=== PATIENT | female | born 1950 | race Caucasian/White ===

== ENCOUNTER 2017-02-16 14:19 | Inpatient (IN) | payer MEDICARE, MEDICAID ==
[~2017-02-16] VITALS: Ht 160 cm; Wt 69.5 kg
[~2017-02-16 14:19] MED LIST: DOK100TA PO; FLUO20TA20 PO; HYDR1CAP30 PO; RISP4TAB2; TRIH5TAB2 PO
[2017-02-16 14:31] VITALS: BP 112/54; PULSE 97; RESP 20; TEMP 98.2; O2SAT 94
[2017-02-16 14:34] VITALS: O2SAT 93
[2017-02-16] MEDS ORDERED: methylPREDNISolone SOD SUCC 125 MG/2 ML VIAL IVP ONE (14:45)
[2017-02-16] MEDS ORDERED: RESP: ALBUTEROL 2.5 MG/IPRATROPIUM 0.5 MG NEB (SCH) INH ONE (14:45)
--- NOTE | 2017-02-16 14:50 | PD ---
HPI Chief Complaint: Respiratory Symptoms Time Seen by Provider: 14:45 Travel History International Travel<30 days: No Contact w/Intl Traveler<30days: No Traveled to known affect area: No History of Present Illness HPI 66-year-old female that presents to the ED from assisted living facility secondary to schizophrenia for evaluation of shortness of breath that started this morning. Per patient yesterday she was fine. Per patient today she developed this shortness of breath with exertion. Patient has a chronic history of smoking. No history of COPD. Per patient she used to use inhalers but not recently. Patient was brought here by ambulance and was not given any breathing treatments but was put on oxygen and felt improved. Per patient she feels slightly dizzy. No cough or congestion. No fevers chills or sweats. No recent sick contacts. No allergies to medication. Patient comes here with a medication list the most of her medications on the list are antipsychotics with no sign of medications for asthma or COPD. She has no other complaints. No chest pain. No abdominal pain. No nausea or vomiting. PFSH Past Medical History High Cholesterol: Yes Diminished Hearing: No GERD: Yes Respiratory: Yes Immunizations Current: No Schizophrenia: Yes ?: Not Menopausal: Yes Past Surgical History Cholecystectomy: Yes (GALL STONES REMOVED) Eye Surgery: Yes Hysterectomy: Yes Oral Surgery: Yes Social History Alcohol Use: No Tobacco Use: Yes (1 1/2 PPD X 20 YEARS) Substance Use: No Allergies-Medications (Allergen,Severity, Reaction): Coded Allergies: No Known Allergies (Verified , 11/25/14) Reported Meds & Prescriptions Reported Meds & Active Scripts Active Reported Dok 100 mg (Docusate Sodium) 100 Mg Tab 100 Mg PO Risperidone 4 Mg Tab Hydroxyzine Pamoate 25 Mg Cap 50 Mg PO ONCE Fluoxetine (Fluoxetine HCl) 20MG Cap 1 Cap PO DAILY Artane (Trihexyphenidyl HCl) 5 Mg Tab 5 Mg PO HS Review of Systems Except as stated in HPI: all other systems reviewed are Neg Physical Exam Narrative GENERAL: SKIN: Warm and dry. HEAD: Atraumatic. Normocephalic. EYES: Pupils equal and round 4 mm reactive to light and accommodation. No scleral icterus. No injection or drainage. ENT: No nasal bleeding or discharge. Mucous membranes pink and moist. Tongue is midline. No uvula deviation. TMs are clear with no sign of infection or perforation. Nostrils are patent. No mastoid tenderness. No lymphadenopathy noted bilaterally. No meningeal signs noted. NECK: Trachea midline. No JVD. CARDIOVASCULAR: Regular rate and rhythm. No murmurs, S3, S4. RESPIRATORY: No accessory muscle use. Mild expiratory wheezing. Breath sounds equal bilaterally. GASTROINTESTINAL: Abdomen soft, non-tender, nondistended. Hepatic and splenic margins not palpable. MUSCULOSKELETAL: Extremities without clubbing, cyanosis, or edema. No obvious deformities. Full range of motion of the upper and lower extremities bilaterally. 2+ pulses bilaterally. NEUROLOGICAL: Awake and alert. No obvious cranial nerve deficits. Motor grossly within normal limits. Five out of 5 muscle strength in the arms and legs. Normal speech. PSYCHIATRIC: Appropriate mood and affect; insight and judgment normal. Data Data Last Documented VS Vital Signs Date Time Temp Pulse Resp B/P Pulse Ox O2 Delivery O2 Flow Rate FiO2 02/16/17 14:34 94 Room Air 02/16/17 14:31 98.2 97 20 112/54 Orders Electrocardiogram (02/16/17 14:32) Complete Blood Count With Diff (02/16/17 14:32) Basic Metabolic Panel (Bmp) (02/16/17 14:32) Troponin I (02/16/17 14:32) Magnesium (Mg) (02/16/17 14:32) Chest, Single Ap (02/16/17 14:32) Iv Access Insert/Monitor (02/16/17 14:32) Ecg Monitoring (02/16/17 14:32) Oximetry (02/16/17 14:32) Methylprednisolone So Succ Inj (Solumedr (02/16/17 14:45) Albuterol-Ipratropium Neb (Duoneb Neb) (02/16/17 14:45) Azithromycin Inj (Zithromax Inj) (02/16/17 16:15) Ceftriaxone Inj (Rocephin Inj) (02/16/17 16:15) Labs Laboratory Tests Test 02/16/17 14:50 White Blood Count 21.1 TH/MM3 Red Blood Count 4.42 MIL/MM3 Hemoglobin 11.7 GM/DL Hematocrit 37.3 % Mean Corpuscular Volume 84.5 FL Mean Corpuscular Hemoglobin 26.4 PG Mean Corpuscular Hemoglobin 31.2 % Concent Red Cell Distribution Width 15.2 % Platelet Count 282 TH/MM3 Mean Platelet Volume 8.2 FL Neutrophils (%) (Auto) % Lymphocytes (%) (Auto) % Monocytes (%) (Auto) % Eosinophils (%) (Auto) % Basophils (%) (Auto) % Neutrophils # (Auto) TH/MM3 Lymphocytes # (Auto) TH/MM3 Monocytes # (Auto) TH/MM3 Eosinophils # (Auto) TH/MM3 Basophils # (Auto) TH/MM3 CBC Comment AUTO DIFF Differential Total Cells 100 Counted Neutrophils % (Manual) 83 % Band Neutrophils % 11 % Lymphocytes % 2 % Monocytes % 4 % Neutrophils # (Manual) 19.8 TH/MM3 Differential Comment FINAL DIFF MANUAL Toxic Vacuolation PRESENT Platelet Estimate NORMAL Platelet Morphology Comment NORMAL Sodium Level 140 MEQ/L Potassium Level 4.1 MEQ/L Chloride Level 107 MEQ/L Carbon Dioxide Level 27.1 MEQ/L Anion Gap 6 MEQ/L Blood Urea Nitrogen 20 MG/DL Creatinine 0.90 MG/DL Estimat Glomerular Filtration 63 ML/MIN Rate Random Glucose 148 MG/DL Calcium Level 8.8 MG/DL Magnesium Level 1.6 MG/DL Troponin I LESS THAN 0.02 NG/ML MDM Medical Decision Making Medical Screen Exam Complete: Yes Emergency Medical Condition: Yes Medical Record Reviewed: Yes Interpretation(s) CBC & BMP Diagram 02/16/17 14:50 Chest x-ray showed pneumonia on the right side Differential Diagnosis Bronchitis versus COPD exacerbation versus pneumonia versus ACS Narrative Course 66-year-old female that presents to the ED for evaluation of shortness of breath. Patient was properly examined and was found to have signs and symptoms consistent appears to be appears to be bronchitis likely secondary to tobaccism. Labs and imaging will be ordered. Patient was given breathing treatments here. Labs and imaging came back showing what appears to be leukocytosis as well as right-sided pneumonia. Patient slightly tachycardic and meets sepsis criteria. Case was discussed in my attending Dr. Munroe who agrees to admission. Dr Echevarria agrees to admission. Sepsis Criteria SIRS Criteria (2 or more): Heart rate over 90, WBC > 82155, < 4000 or > 10% bands Sepsis Criteria (SIRS+source): Infect source susp/known Criteria Outcome: Meets sepsis criteria Diagnosis Primary Impression: Pneumonia Qualified Code: J18.1 - Pneumonia of right lower lobe due to infectious organism Additional Impression: Sepsis Qualified Code: A41.9 - Sepsis, due to unspecified organism Admitting Information Admitting Physician Requests: Venecia Mills,Shay PA Feb 16, 2017 14:50 Shay Mills Feb 16, 2017 14:50
[2017-02-16 15:30] LABS: HEMATOCRIT 37.3 % (35.0-46.0); HEMO FLAGS AUTO DIFF; MEAN CELL VOLUME 84.5 FL (80.0-100.0); MEAN CORPUSCULAR HEMOGLOBIN 26.4 PG (27.0-34.0); MEAN CORPUSCULAR HGB CONC 31.2 % (32.0-36.0); PLATELET COUNT 282 TH/MM3 (150-450); RED BLOOD COUNT 4.42 MIL/MM3 (4.00-5.30); RED CELL DISTRIBUTION WIDTH 15.2 % (11.6-17.2); WHITE BLOOD COUNT 21.1 TH/MM3 (4.0-11.0)
[2017-02-16 15:38] LABS: ANION GAP 6 MEQ/L (5-15); BICARBONATE 27.1 MEQ/L (21.0-32.0); BLOOD UREA NITROGEN 20 MG/DL (7-18); CHLORIDE 107 MEQ/L (98-107); GLOMERULAR FILTRATION RATE 63 ML/MIN (>89); MAGNESIUM 1.6 MG/DL (1.5-2.5); POTASSIUM 4.1 MEQ/L (3.5-5.1); SODIUM (NA) 140 MEQ/L (136-145)
--- NOTE | 2017-02-16 15:52 | RADRPT ---
EXAM DATE/TIME: 02/16/2017 15:05 [facility] COMPARISON: No previous studies available for comparison. INDICATIONS : Short of breath. MEDICAL HISTORY : None. SURGICAL HISTORY : None. ENCOUNTER: Initial ACUITY: 1 day PAIN SCORE: 0/10 LOCATION: Bilateral chest FINDINGS: Patchy opacity is noted within the right lung base consistent with probable pneumonia. Clinical krystyna elation is recommended. The left lung is clear. The heart is normal. Degenerative changes and scol iosis of the thoracolumbar spine are noted. CONCLUSION: 1. Right basilar patchiness consistent with probable pneumonia. Clinical correlation is recommended . 2. Degenerative changes and scoliosis of the thoracolumbar spine. Sandip Garcia MD on February 16, 2017 at 15:45 Board Certified Radiologist. This report was verified electronically.
[2017-02-16 15:58] LABS: BANDS 11 % (0-6); NEUTROPHIL # MANUAL DIFF 19.8 TH/MM3 (1.8-7.7); POLYS (SEG NEUTROPHILS) 83 % (16-70); TOXIC VACUOLATION PRESENT (NONE SEEN); WBC DIFF SAMPLE 100
[2017-02-16 16:00] LABS: PLATELET ESTIMATE SMEAR NORMAL (NORMAL); PLATELET MORPHOLOGY NORMAL (NORMAL); SCAN/DIFF FINAL DIFF MANUAL
[2017-02-16] MEDS ORDERED: cefTRIAXone INJ 1,000 MG in SODIUM CHLORIDE 0.9% INJ 100 ML IV ONE (16:15)
[2017-02-16] MEDS ORDERED: AZITHROMYCIN INJ 500 MG in SODIUM CHLOR 0.9% 250 ML INJ 250 ML IV ONE (16:15)
[2017-02-16] MEDS ORDERED: ONDANSETRON HCL 4 MG/2 ML VIAL IV PUSH PRN (16:30)
[2017-02-16] MEDS ORDERED: ACETAMINOPHEN 325 MG TAB PO PRN (16:30)
[2017-02-16] MEDS ORDERED: RESP: ALBUTEROL 1.25 MG/3 ML NEB (PRN) NEB (16:45)
--- NOTE | 2017-02-16 16:45 | HHI.HP ---
[facility] Service [facility] Primary Care Physician Unknown Admission Diagnosis right sided pneumonia, leukocystosis, sepsis Diagnoses: (1) Sepsis Diagnosis: Principal (2) Pneumonia Diagnosis: Principal Chief Complaint: sob Travel History International Travel<30 Days: No Contact w/Intl Traveler <30 Da: No Traveled to Known Affected Are: No Sepsis Criteria SIRS Criteria (2 or more): Heart rate over 90, WBC > 00035, < 4000 or > 10% bands Sepsis Criteria (SIRS+source): Infect source susp/known Criteria Outcome: Meets sepsis criteria History of Present Illness patient is a 66 y/o female with history of schizophrenia who presented to ER with sob. she says that her sob started four days ago. she denies any productive cough, fever, chills or night sweats. she admits to smoking a pack a day.at the time of my evaluation she was resting comfortably with no distress. she says that her sob has improved. Review of Systems Constitutional: DENIES: Fever, Weight loss, Chills, Night Sweats Eyes: DENIES: Blurred vision, Diplopia, Vision loss, Double Vision Ears, nose, mouth, throat: DENIES: Tinnitus, Vertigo, Throat pain, Epistaxis Respiratory: COMPLAINS OF: Shortness of breath, DENIES: Apneas, Cough, Snoring , Wheezing, Hemoptysis, Sputum production Cardiovascular: DENIES: Chest pain, Palpitations, Syncope, Dyspnea on Exertion , PND, Lower Extremity Edema, Orthopnea, Claudication Gastrointestinal: DENIES: Abdominal pain, Black stools, Bloody stools, Constipation, Diarrhea, Nausea, Vomiting, Difficulty Swallowing, Anorexia Genitourinary: DENIES: Urinary frequency, Urgency, Hematuria, Dysuria Musculoskeletal: DENIES: Joint pain, Muscle aches, Stiffness, Joint Swelling Integumentary: DENIES: Rash Neurologic: DENIES: Abnormal gait, Headache, Localized weakness, Paresthesias, Seizures, Speech Problems, Tremor, Poor Balance Psychiatric: DENIES: Anxiety, Confusion, Mood changes, Depression, Hallucinations, Agitation, Suicidal Ideation, Homicidal Ideation, Delusions Past Family Social History Past Medical History schizophrenia Past Surgical History cholecystectomy Reported Medications Dok 100 mg (Docusate Sodium) 100 Mg Tab 100 Mg PO Risperidone 4 Mg Tab Hydroxyzine Pamoate 25 Mg Cap 50 Mg PO ONCE Fluoxetine (Fluoxetine HCl) 20MG Cap 1 Cap PO DAILY Artane (Trihexyphenidyl HCl) 5 Mg Tab 5 Mg PO HS Allergies: Coded Allergies: No Known Allergies (Verified , 11/25/14) Active Ordered Medications Current Medications Methylprednisolone Sodium Succinate (SoluMEDROL INJ) 125 mg ONCE ONCE IVP Last administered on 02/16/17 14:45; Start 02/16/17 at 14:45; Stop 02/16/17 at 14:46; Status DC Albuterol/ Ipratropium 1 ampule 1 ampule ONCE ONCE INH Last administered on 14:42; Start 02/16/17 at 14:45; Stop 02/16/17 at 14:46; Status DC Azithromycin 500 mg/Sodium Chloride 250 ml @ 250 mls/hr ONCE ONCE IV ; Start 02/16/17 at 16:15; Stop 02/16/17 at 17:14 Ceftriaxone Sodium/Sodium Chloride (Rocephin Inj/NS Inj) 100 ml @ 200 mls/hr ONCE ONCE IV ; Start 02/16/17 at 16:15; Stop 02/16/17 at 16:44 Acetaminophen (Tylenol) 650 mg Q4H PRN PO FEVER/PAIN; Start 02/16/17 at 16:30; Status UNV Ondansetron HCl (Zofran Inj) 4 mg Q8HR PRN IV PUSH NAUSEA; Start 02/16/17 at 16 :30; Status UNV Family History not relevant to this admission. Social History [facility] resident. smokes a pack a day. Physical Exam Vital Signs Vital Signs Date Time Temp Pulse Resp B/P Pulse Ox O2 Delivery O2 Flow Rate FiO2 02/16/17 14:34 94 Room Air 02/16/17 14:34 93 02/16/17 14:31 98.2 97 20 112/54 94 Physical Exam GENERAL: This is a well-nourished, well-developed patient, in no apparent distress. SKIN: No rashes, ecchymoses or lesions. Cool and dry. HEAD: Atraumatic. Normocephalic. No temporal or scalp tenderness. EYES: Pupils equal round and reactive. Extraocular motions intact. No scleral icterus. No injection or drainage. ENT: Nose without bleeding, purulent drainage or septal hematoma. Throat without erythema, tonsillar hypertrophy or exudate. Uvula midline. Airway patent. NECK: Trachea midline. No JVD or lymphadenopathy. Supple, nontender, no meningeal signs. CARDIOVASCULAR: Regular rate and rhythm without murmurs, gallops, or rubs. RESPIRATORY: diminished air entry in bases with bilateral wheezing. GASTROINTESTINAL: Abdomen soft, non-tender, nondistended. No hepato-splenomegaly , or palpable masses. No guarding. MUSCULOSKELETAL: Extremities without clubbing, cyanosis, or edema. No joint tenderness, effusion, or edema noted. No calf tenderness. Negative Homans sign bilaterally. NEUROLOGICAL: Awake and alert. Cranial nerves II through XII intact. Motor and sensory grossly within normal limits. Five out of 5 muscle strength in all muscle groups. Normal speech. Laboratory Laboratory Tests Test 02/16/17 14:50 White Blood Count 21.1 Red Blood Count 4.42 Hemoglobin 11.7 Hematocrit 37.3 Mean Corpuscular Volume 84.5 Mean Corpuscular Hemoglobin 26.4 Mean Corpuscular Hemoglobin 31.2 Concent Red Cell Distribution Width 15.2 Platelet Count 282 Mean Platelet Volume 8.2 Neutrophils (%) (Auto) Lymphocytes (%) (Auto) Monocytes (%) (Auto) Eosinophils (%) (Auto) Basophils (%) (Auto) Neutrophils # (Auto) Lymphocytes # (Auto) Monocytes # (Auto) Eosinophils # (Auto) Basophils # (Auto) CBC Comment AUTO DIFF Differential Total Cells 100 Counted Neutrophils % (Manual) 83 Band Neutrophils % 11 Lymphocytes % 2 Monocytes % 4 Neutrophils # (Manual) 19.8 Differential Comment FINAL DIFF MANUAL Toxic Vacuolation PRESENT Platelet Estimate NORMAL Platelet Morphology Comment NORMAL Sodium Level 140 Potassium Level 4.1 Chloride Level 107 Carbon Dioxide Level 27.1 Anion Gap 6 Blood Urea Nitrogen 20 Creatinine 0.90 Estimat Glomerular Filtration 63 Rate Random Glucose 148 Calcium Level 8.8 Magnesium Level 1.6 Troponin I LESS THAN 0.02 Result Diagram: 02/16/17 1450 02/16/17 1450 Assessment and Plan Assessment and Plan A/P - sepsis due to pneumonia continue with IV antibiotics- start neb treatment - keep on oxygen as needed to keep O2 sat > 90%- follow the cultures -possible COPD exacerbation continue neb treatment and start IV steroids- advised to stop smoking- -schizophrenia; will verify and resume the home meds -DVt prophylaxis with Lovenox Discussed Condition With ER physician and the patient. Physician Certification 2 Midnight Certification Type: Admission for Inpatient Services Order for Inpatient Services The services are ordered in accordance with Medicare regulations or non- Medicare payer requirements, as applicable. In the case of services not specified as inpatient-only, they are appropriately provided as inpatient services in accordance with the 2-midnight benchmark. Estimated LOS (days): 2 days is the estimated time the patient will need to remain in the hospital, assuming treatment plan goals are met and no additional complications. Post-Hospital Plan: Alf/PRISCILA Problem Qualifiers (1) Sepsis: Qualified Code: A41.9 - Sepsis, due to unspecified organism (2) Pneumonia: Qualified Code: J18.1 - Pneumonia of right lower lobe due to infectious organism Marcellus Avery MD Feb 16, 2017 16:45
[2017-02-16 17:11] VITALS: BP 115/60; PULSE 89; RESP 20; O2SAT 95
--- NOTE | 2017-02-16 17:54 | EKG ---
Date Performed: 02/16/2017 Time Performed: 15:11:31 PTAGE: 66 years EKG: Sinus rhythm WITH OCCASIONAL SUPRAVENTRICULAR PREMATURE COMPLEXES BORDERLINE ECG COMPARED TO PRIOR ELECTROCARDIOG GRACIA, Premature atrial contractions are now present. PREVIOUS TRACING : 12/27/2006 10.42 DOCTOR: Yovani Petersen Interpretating Date/Time 02/16/2017 17:54:15
[2017-02-16] MEDS: ENOXAPARIN SODIUM 40 MG/0.4 ML SYRINGE SQ SCH ×2 (18:26→18:29)
[2017-02-16] MEDS: cefTRIAXone INJ 1,000 MG in SODIUM CHLORIDE 0.9% INJ 100 ML IV SCH (18:29)
[2017-02-16 18:51] VITALS: O2SAT 92
[2017-02-16 19:00] VITALS: O2SAT 97
[2017-02-16] MEDS: RESP: ALBUTEROL 2.5 MG/IPRATROPIUM 0.5 MG NEB (SCH) NEB (19:00)
[2017-02-16 20:00] VITALS: BP 148/66; PULSE 79; RESP 22; TEMP 98.6; O2SAT 96
[2017-02-16] MEDS: methylPREDNISolone SOD SUCC 40 MG/1 ML VIAL IV PUSH SCH (22:13)
[2017-02-17] VITALS (8 sets, daily range): BP systolic 131–162; BP diastolic 60–73; PULSE 75–98; RESP 19–22; TEMP 96.9–98.3; O2SAT 91–97
[2017-02-17] MEDS: methylPREDNISolone SOD SUCC 40 MG/1 ML VIAL IV PUSH SCH ×2 (04:21→21:50)
[2017-02-17] MEDS: RESP: ALBUTEROL 2.5 MG/IPRATROPIUM 0.5 MG NEB (SCH) NEB ×2 (07:08→11:43)
[2017-02-17 07:09] LABS: AUTOMATED NEUTROPHIL # 16.7 TH/MM3 (1.8-7.7); BASOPHIL % 0.1 % (0.0-2.0); HEMATOCRIT 36.7 % (35.0-46.0); HEMO FLAGS DIFF FINAL; LYMPHOCYTE # 0.9 TH/MM3 (1.0-4.8); MEAN CORPUSCULAR HEMOGLOBIN 27.4 PG (27.0-34.0); MEAN CORPUSCULAR HGB CONC 32.6 % (32.0-36.0); MONO % 1.2 % (0.0-8.0); NEUT % 93.7 % (16.0-70.0); PLATELET COUNT 275 TH/MM3 (150-450); RED BLOOD COUNT 4.37 MIL/MM3 (4.00-5.30); RED CELL DISTRIBUTION WIDTH 14.9 % (11.6-17.2); WHITE BLOOD COUNT 17.8 TH/MM3 (4.0-11.0)
--- NOTE | 2017-02-17 09:47 | HHI.PR ---
Subjective Remarks resting comfortably with no distress. sob has improved. no cough or fever. Objective Vitals Vital Signs Date Time Temp Pulse Resp B/P Pulse Ox O2 Delivery O2 Flow Rate FiO2 02/17/17 09:07 97 02/17/17 09:04 91 02/17/17 08:00 98.3 91 20 131/60 95 02/17/17 07:09 97 Nasal Cannula 2.00 02/17/17 00:00 97.5 75 20 146/68 95 02/16/17 20:00 98.6 79 22 148/66 96 02/16/17 19:00 97 Nasal Cannula 2.00 02/16/17 18:51 92 02/16/17 17:11 89 20 115/60 95 Room Air 02/16/17 14:34 94 Room Air 02/16/17 14:34 93 02/16/17 14:31 98.2 97 20 112/54 94 I/O 02/16/17 02/16/17 02/16/17 02/17/17 02/17/17 02/17/17 07:00 15:00 23:00 07:00 15:00 23:00 Intake Total 240 ml 240 ml 120 ml Balance 240 ml 240 ml 120 ml Intake Oral 240 ml 240 ml 120 ml # Voids 1 2 # Bowel Movements 0 0 Result Diagram: 02/17/17 0430 02/16/17 1450 Imaging Last Impressions Chest X-Ray 02/16/17 1432 Signed Impressions: Service Date/Time: Thursday, February 16, 2017 15:05 - CONCLUSION: 1. Right basilar patchiness consistent with probable pneumonia. Clinical correlation is recommended. 2. Degenerative changes and scoliosis of the thoracolumbar spine. Sandip Garcia MD Objective Remarks GENERAL: This is a well-nourished, well-developed patient, in no apparent distress. CARDIOVASCULAR: Regular rate and regular rhythm without murmurs, gallops, or rubs. RESPIRATORY: mild bilateral wheezing GASTROINTESTINAL: Abdomen soft, non-tender, nondistended. Normal, active bowel sounds MUSCULOSKELETAL: Extremities without clubbing, cyanosis, or edema. NEURO: Alert & Oriented x4 to person, place, time, situation. Moves all ext x4 Procedures none Medications and IVs Current Medications Methylprednisolone Sodium Succinate (SoluMEDROL INJ) 125 mg ONCE ONCE IVP Last administered on 02/16/17 14:45; Start 02/16/17 at 14:45; Stop 02/16/17 at 14:46; Status DC Albuterol/ Ipratropium 1 ampule 1 ampule ONCE ONCE INH Last administered on 14:42; Start 02/16/17 at 14:45; Stop 02/16/17 at 14:46; Status DC Azithromycin 500 mg/Sodium Chloride 250 ml @ 250 mls/hr ONCE ONCE IV Last administered on 02/16/17 16:15; Start 02/16/17 at 16:15; Stop 02/16/17 at 17:14 ; Status DC Ceftriaxone Sodium/Sodium Chloride (Rocephin Inj/NS Inj) 100 ml @ 200 mls/hr ONCE ONCE IV Last administered on 02/16/17 16:15; Start 02/16/17 at 16:15; Stop 02/16/17 at 16:44; Status DC Acetaminophen (Tylenol) 650 mg Q4H PRN PO FEVER/PAIN 1-10; Start 02/16/17 at 16 :30 Ondansetron HCl 4 mg 4 mg Q8H PRN IV PUSH NAUSEA; Start 02/16/17 at 16:30 Ceftriaxone Sodium 1000 mg/ Sodium Chloride 100 ml @ 200 mls/hr Q24H IV ; Start 02/17/17 at 16:00 Azithromycin/ Sodium Chloride (Zithromax Inj/ NS 250 ml Inj) 250 ml @ 250 mls/ hr ONCE ONCE IV ; Start 02/17/17 at 16:00; Stop 02/17/17 at 16:59 Methylprednisolone Sodium Succinate (SoluMEDROL INJ) 40 mg Q8HR IV PUSH Last administered on 02/17/17 04:21; Start 02/16/17 at 22:00 Albuterol/ Ipratropium (Duoneb Neb) 1 ampule Q6HR WHILE AWAKE NEB NEB Last administered on 02/17/17 07:08; Start 02/16/17 at 20:00; Stop 02/17/17 at 12:00 Albuterol Sulfate (Albuterol Neb) 1.25 mg Q2HR NEB PRN NEB SOB/WHEEZING; Start 02/16/17 at 16:45 Enoxaparin Sodium (Lovenox Inj) 40 mg Q24H SQ Last administered on 6/30/17at 18 :29; Start 02/16/17 at 18:00 A/P Assessment and Plan A/p - sepsis due to pneumonia continue with IV antibiotics- start neb treatment - titrate down the oxygen to keep O2 sat > 90%- follow the cultures -possible COPD exacerbation continue neb treatment and start to taper down the IV steroids- advised to stop smoking- -schizophrenia; will verify and resume the home meds -DVt prophylaxis with Lovenox Marcellus Avery MD Feb 17, 2017 09:47
[2017-02-17] MEDS ORDERED: DOCU1CAP39 (13:50)
[2017-02-17] MEDS ORDERED: VIST25CA PO (13:50)
[2017-02-17] MEDS ORDERED: FLUO20CA12 PO (13:50)
[2017-02-17] MEDS ORDERED: REME15TA PO (13:50)
[2017-02-17] MEDS ORDERED: MIRA25TA (13:50)
[2017-02-17] MEDS ORDERED: PANT20 PO (13:50)
[2017-02-17] MEDS ORDERED: FAMO1TAB37 PO (13:50)
[2017-02-17] MEDS ORDERED: MELO7.5T4 PO (13:50)
[2017-02-17] MEDS ORDERED: TRIH2 PO (13:50)
[2017-02-17] MEDS ORDERED: FLUoxetine HCL 20 MG CAP PO PRN (16:00)
[2017-02-17] MEDS ORDERED: AZITHROMYCIN INJ 500 MG in SODIUM CHLOR 0.9% 250 ML INJ 250 ML IV ONE (16:00)
[2017-02-17] MEDS: MIRTAZAPINE 15 MG TAB PO SCH (21:48)
[2017-02-17] MEDS: TRIHEXYPHENIDYL HCL 2 MG TAB PO SCH (21:48)
[2017-02-18] VITALS: BP 143/63; PULSE 86; RESP 22; TEMP 97.8; O2SAT 95
[2017-02-18 05:44] LABS: AUTOMATED NEUTROPHIL # 15.3 TH/MM3 (1.8-7.7); BASOPHIL % 0.1 % (0.0-2.0); HEMATOCRIT 34.6 % (35.0-46.0); HEMO FLAGS DIFF FINAL; LYMPH % 4.7 % (9.0-44.0); LYMPHOCYTE # 0.8 TH/MM3 (1.0-4.8); MEAN CELL VOLUME 84.5 FL (80.0-100.0); MEAN CORPUSCULAR HEMOGLOBIN 27.9 PG (27.0-34.0); MONO % 1.9 % (0.0-8.0); NEUT % 93.3 % (16.0-70.0); PLATELET COUNT 270 TH/MM3 (150-450); RED CELL DISTRIBUTION WIDTH 15.1 % (11.6-17.2); WHITE BLOOD COUNT 16.4 TH/MM3 (4.0-11.0)
[2017-02-18 08:00] VITALS: BP 120/61; PULSE 71; RESP 19; TEMP 98; O2SAT 95
[2017-02-18] MEDS: TRIHEXYPHENIDYL HCL 2 MG TAB PO SCH ×2 (08:33→19:49)
[2017-02-18] MEDS: methylPREDNISolone SOD SUCC 40 MG/1 ML VIAL IV PUSH SCH ×2 (08:33→19:49)
[2017-02-18] MEDS: PANTOPRAZOLE SOD 20 MG DELAYED RELEASE TAB PO SCH (08:34)
[2017-02-18] MEDS ORDERED: FAMOTIDINE 20 MG TAB PO SCH (09:00)
--- NOTE | 2017-02-18 09:35 | HHI.PR ---
Subjective Remarks resting comfortably with no distress. sob is improving. has mild wheezing. Objective Vitals Vital Signs Date Time Temp Pulse Resp B/P Pulse Ox O2 Delivery O2 Flow Rate FiO2 02/18/17 08:00 98.0 71 19 120/61 95 02/18/17 00:00 97.8 86 22 143/63 95 02/17/17 20:00 97.0 86 22 162/73 95 02/17/17 16:00 96.9 92 19 154/73 95 02/17/17 12:00 97.4 98 19 145/67 95 I/O 02/17/17 02/17/17 02/17/17 02/18/17 02/18/17 02/18/17 07:00 15:00 23:00 07:00 15:00 23:00 Intake Total 240 ml 1080 ml 480 ml 320 ml 120 ml Output Total 700 ml Balance 240 ml 380 ml 480 ml 320 ml 120 ml Intake Oral 240 ml 1080 ml 480 ml 320 ml 120 ml Output Urine Total 700 ml # Voids 2 2 3 # Bowel Movements 0 0 0 0 Result Diagram: 02/18/17 0358 02/16/17 1450 Imaging Last Impressions Chest X-Ray 02/16/17 1432 Signed Impressions: Service Date/Time: Thursday, February 16, 2017 15:05 - CONCLUSION: 1. Right basilar patchiness consistent with probable pneumonia. Clinical correlation is recommended. 2. Degenerative changes and scoliosis of the thoracolumbar spine. Sandip Garcia MD Objective Remarks GENERAL: This is a well-nourished, well-developed patient, in no apparent distress. CARDIOVASCULAR: Regular rate and regular rhythm without murmurs, gallops, or rubs. RESPIRATORY: mild bilateral wheezing GASTROINTESTINAL: Abdomen soft, non-tender, nondistended. Normal, active bowel sounds MUSCULOSKELETAL: Extremities without clubbing, cyanosis, or edema. NEURO: Alert & Oriented x4 to person, place, time, situation. Moves all ext x4 Procedures none Medications and IVs Current Medications Methylprednisolone Sodium Succinate (SoluMEDROL INJ) 125 mg ONCE ONCE IVP Last administered on 02/16/17t 14:45; Start 02/16/17 at 14:45; Stop 02/16/17 at 14:46; Status DC Albuterol/ Ipratropium 1 ampule 1 ampule ONCE ONCE INH Last administered on 14:42; Start 02/16/17 at 14:45; Stop 02/16/17 at 14:46; Status DC Azithromycin 500 mg/Sodium Chloride 250 ml @ 250 mls/hr ONCE ONCE IV Last administered on 02/16/17 16:15; Start 02/16/17 at 16:15; Stop 02/16/17 at 17:14 ; Status DC Ceftriaxone Sodium/Sodium Chloride (Rocephin Inj/NS Inj) 100 ml @ 200 mls/hr ONCE ONCE IV Last administered on 02/16/17 16:15; Start 02/16/17 at 16:15; Stop 02/16/17 at 16:44; Status DC Acetaminophen (Tylenol) 650 mg Q4H PRN PO FEVER/PAIN 1-10; Start 02/16/17 at 16 :30 Ondansetron HCl 4 mg 4 mg Q8H PRN IV PUSH NAUSEA; Start 02/16/17 at 16:30 Ceftriaxone Sodium 1000 mg/ Sodium Chloride 100 ml @ 200 mls/hr Q24H IV ; Start 02/17/17 at 16:00 Azithromycin/ Sodium Chloride (Zithromax Inj/ NS 250 ml Inj) 250 ml @ 250 mls/ hr ONCE ONCE IV ; Start 02/17/17 at 16:00; Stop 02/17/17 at 16:59; Status DC Methylprednisolone Sodium Succinate (SoluMEDROL INJ) 40 mg Q8HR IV PUSH Last administered on 02/17/17 04:21; Start 02/16/17 at 22:00; Stop 02/17/17 at 09:45; Status DC Albuterol/ Ipratropium (Duoneb Neb) 1 ampule Q6HR WHILE AWAKE NEB NEB Last administered on 02/17/17 11:43; Start 02/16/17 at 20:00; Stop 02/17/17 at 12:00; Status DC Albuterol Sulfate (Albuterol Neb) 1.25 mg Q2HR NEB PRN NEB SOB/WHEEZING; Start 02/16/17 at 16:45 Enoxaparin Sodium (Lovenox Inj) 40 mg Q24H SQ Last administered on 02/16/17 18 :29; Start 02/16/17 at 18:00 Methylprednisolone Sodium Succinate (SoluMEDROL INJ) 40 mg Q12HR IV PUSH Last administered on 02/18/17 08:33; Start 02/17/17 at 21:00 Famotidine (Pepcid) 20 mg DAILY PO ; Start 02/18/17 at 09:00; Stop 02/18/17 at 09: 00; Status DC Fluoxetine HCl (PROzac) 20 mg DAILY PRN PO AGITATION AND/OR HALLUCINATION; Start 02/17/17 at 16:00; Status Hold Mirtazapine (Remeron) 7.5 mg HS PO Last administered on 02/17/17 21:48; Start 02/17/17 at 21:00 Pantoprazole Sodium (Protonix) 20 mg DAILY PO Last administered on 02/18/17 08: 34; Start 02/18/17 at 09:00 Trihexyphenidyl HCl (Artane) 2 mg BID PO Last administered on 02/18/17 08:33; Start 02/17/17 at 21:00 A/P Assessment and Plan A/p - sepsis due to pneumonia continue with IV antibiotics- start neb treatment - titrate down the oxygen to keep O2 sat > 90%- follow the cultures -possible COPD exacerbation continue neb treatment and start to taper down the IV steroids- advised to stop smoking- walk test today. -schizophrenia; resume the home meds -DVt prophylaxis with Lovenox Discharge Planning possible dc home tomorrow if stable. Marcellus Avery MD Feb 18, 2017 09:35
[2017-02-18 11:53] VITALS: BP 167/79; PULSE 80; RESP 17; TEMP 97.6; O2SAT 100
[2017-02-18 14:45] VITALS: O2SAT 96
[2017-02-18 16:00] VITALS: BP 167/77; PULSE 72; RESP 20; TEMP 97.7; O2SAT 95
[2017-02-18] MEDS: cefTRIAXone INJ 1,000 MG in SODIUM CHLORIDE 0.9% INJ 100 ML IV SCH (16:50)
[2017-02-18] MEDS: ENOXAPARIN SODIUM 40 MG/0.4 ML SYRINGE SQ SCH (16:50)
[2017-02-18] MEDS: MIRTAZAPINE 15 MG TAB PO SCH (19:49)
[2017-02-18 20:00] VITALS: BP 165/75; PULSE 63; RESP 17; TEMP 97; O2SAT 96
[2017-02-19] VITALS: BP 142/71; PULSE 65; RESP 17; TEMP 96.8; O2SAT 97
[2017-02-19 05:48] LABS: HEMATOCRIT 34.4 % (35.0-46.0); MEAN CORPUSCULAR HEMOGLOBIN 27.7 PG (27.0-34.0); PLATELET COUNT 250 TH/MM3 (150-450); RED CELL DISTRIBUTION WIDTH 14.7 % (11.6-17.2); WHITE BLOOD COUNT 12.9 TH/MM3 (4.0-11.0)
[2017-02-19 05:53] LABS: HEMO FLAGS AUTO DIFF
[2017-02-19 07:10] LABS: BANDS 6 % (0-6); NEUTROPHIL # MANUAL DIFF 11.2 TH/MM3 (1.8-7.7); PLATELET ESTIMATE SMEAR NORMAL (NORMAL); PLATELET MORPHOLOGY NORMAL (NORMAL); POLYS (SEG NEUTROPHILS) 81 % (16-70); SCAN/DIFF FINAL DIFF MANUAL; WBC DIFF SAMPLE 100
[2017-02-19 08:00] VITALS: BP 150/68; PULSE 63; RESP 17; TEMP 98.3; O2SAT 94
[2017-02-19] MEDS: TRIHEXYPHENIDYL HCL 2 MG TAB PO SCH (08:40)
[2017-02-19] MEDS: PANTOPRAZOLE SOD 20 MG DELAYED RELEASE TAB PO SCH (08:40)
[2017-02-19] MEDS: methylPREDNISolone SOD SUCC 40 MG/1 ML VIAL IV PUSH SCH (08:40)
--- NOTE | 2017-02-19 09:34 | HHI.PR ---
Subjective Remarks resting comfortably with no distress. no sob. afebrile. d/w the RN and no acute issues over night. Objective Vitals Vital Signs Date Time Temp Pulse Resp B/P Pulse Ox O2 Delivery O2 Flow Rate FiO2 02/19/17 07:31 Nasal Cannula 2.00 02/19/17 00:00 96.8 65 17 142/71 97 02/18/17 20:00 97.0 63 17 165/75 96 02/18/17 19:47 95 Nasal Cannula 2.00 02/18/17 16:00 97.7 72 20 167/77 95 02/18/17 14:45 96 Nasal Cannula 2.00 02/18/17 11:53 97.6 80 17 167/79 100 I/O 02/18/17 02/18/17 02/18/17 02/19/17 02/19/17 02/19/17 07:00 15:00 23:00 07:00 15:00 23:00 Intake Total 320 ml 1120 ml 460 ml 240 ml Output Total 700 ml Balance 320 ml 420 ml 460 ml 240 ml Intake Oral 320 ml 1120 ml 360 ml 240 ml IV Total 100 ml Output Urine Total 700 ml # Voids 3 1 1 # Bowel Movements 0 1 Result Diagram: 02/19/17 0523 02/16/17 1450 Imaging Last Impressions Chest X-Ray 02/16/17 1432 Signed Impressions: Service Date/Time: Thursday, February 16, 2017 15:05 - CONCLUSION: 1. Right basilar patchiness consistent with probable pneumonia. Clinical correlation is recommended. 2. Degenerative changes and scoliosis of the thoracolumbar spine. Sandip Garcia MD Objective Remarks GENERAL: This is a well-nourished, well-developed patient, in no apparent distress. CARDIOVASCULAR: Regular rate and regular rhythm without murmurs, gallops, or rubs. RESPIRATORY: mild bilateral wheezing GASTROINTESTINAL: Abdomen soft, non-tender, nondistended. Normal, active bowel sounds MUSCULOSKELETAL: Extremities without clubbing, cyanosis, or edema. NEURO: Alert & Oriented x4 to person, place, time, situation. Moves all ext x4 Procedures none Medications and IVs Current Medications Methylprednisolone Sodium Succinate (SoluMEDROL INJ) 125 mg ONCE ONCE IVP Last administered on 02/16/17t 14:45; Start 02/16/17 at 14:45; Stop 02/16/17 at 14:46; Status DC Albuterol/ Ipratropium 1 ampule 1 ampule ONCE ONCE INH Last administered on 14:42; Start 02/16/17 at 14:45; Stop 02/16/17 at 14:46; Status DC Azithromycin 500 mg/Sodium Chloride 250 ml @ 250 mls/hr ONCE ONCE IV Last administered on 02/16/17 16:15; Start 02/16/17 at 16:15; Stop 02/16/17 at 17:14 ; Status DC Ceftriaxone Sodium/Sodium Chloride (Rocephin Inj/NS Inj) 100 ml @ 200 mls/hr ONCE ONCE IV Last administered on 02/16/17 16:15; Start 02/16/17 at 16:15; Stop 02/16/17 at 16:44; Status DC Acetaminophen (Tylenol) 650 mg Q4H PRN PO FEVER/PAIN 1-10; Start 02/16/17 at 16 :30 Ondansetron HCl 4 mg 4 mg Q8H PRN IV PUSH NAUSEA; Start 02/16/17 at 16:30 Ceftriaxone Sodium 1000 mg/ Sodium Chloride 100 ml @ 200 mls/hr Q24H IV Last administered on 02/18/17 16:50; Start 02/17/17 at 16:00 Azithromycin/ Sodium Chloride (Zithromax Inj/ NS 250 ml Inj) 250 ml @ 250 mls/ hr ONCE ONCE IV ; Start 02/17/17 at 16:00; Stop 02/17/17 at 16:59; Status DC Methylprednisolone Sodium Succinate (SoluMEDROL INJ) 40 mg Q8HR IV PUSH Last administered on 02/17/17 04:21; Start 02/16/17 at 22:00; Stop 02/17/17 at 09:45; Status DC Albuterol/ Ipratropium (Duoneb Neb) 1 ampule Q6HR WHILE AWAKE NEB NEB Last administered on 02/17/17 11:43; Start 02/16/17 at 20:00; Stop 02/17/17 at 12:00; Status DC Albuterol Sulfate (Albuterol Neb) 1.25 mg Q2HR NEB PRN NEB SOB/WHEEZING; Start 02/16/17 at 16:45 Enoxaparin Sodium (Lovenox Inj) 40 mg Q24H SQ Last administered on 02/18/17 16: 50; Start 02/16/17 at 18:00 Methylprednisolone Sodium Succinate (SoluMEDROL INJ) 40 mg Q12HR IV PUSH Last administered on 02/18/17 08:33; Start 02/17/17 at 21:00; Stop 02/18/17 at 09:34; Status DC Famotidine (Pepcid) 20 mg DAILY PO ; Start 02/18/17 at 09:00; Stop 02/18/17 at 09: 00; Status DC Fluoxetine HCl (PROzac) 20 mg DAILY PRN PO AGITATION AND/OR HALLUCINATION; Start 02/17/17 at 16:00; Status Hold Mirtazapine (Remeron) 7.5 mg HS PO Last administered on 02/18/17 19:49; Start 02/17/17 at 21:00 Pantoprazole Sodium (Protonix) 20 mg DAILY PO Last administered on 02/19/17 08: 40; Start 02/18/17 at 09:00 Trihexyphenidyl HCl (Artane) 2 mg BID PO Last administered on 02/19/17 08:40; Start 02/17/17 at 21:00 Azithromycin (Zithromax) 500 mg DAILY PO ; Start 02/19/17 at 16:00 Methylprednisolone Sodium Succinate (SoluMEDROL INJ) 20 mg Q12HR IV PUSH Last administered on 02/19/17 08:40; Start 02/18/17 at 21:00 A/P Assessment and Plan A/p - sepsis due to pneumonia switch to po antibiotics- follow the cultures -possible COPD exacerbation switch to po steroids- advised to stop smoking- passed the walk test . -schizophrenia; resumed the home meds -DVt prophylaxis with Lovenox Discharge Planning dc home later today if the cultures are negative. see med list. f/u; pcp. d/w the patient, RN and case management. Marcellus Avery MD Feb 19, 2017 09:34
[2017-02-19] MEDS ORDERED: AUGM875T3 PO (09:38)
[2017-02-19] MEDS ORDERED: PRED5TAB PO (09:38)
[2017-02-19] MEDS ORDERED: VENTAER INH (09:38)
--- NOTE | 2017-02-19 09:39 | HHI.DS ---
Discharge Summary Admission Date Feb 16, 2017 at 16:46 Discharge Date: Feb 19, 2017 Admitting Diagnosis right sided pneumonia, leukocystosis, sepsis (1) Sepsis ICD Code: A41.9 Diagnosis: Principal (2) Pneumonia ICD Code: J18.9 Diagnosis: Principal Procedures none Brief History - From Admission patient is a 66 y/o female with history of schizophrenia who presented to ER with sob. she says that her sob started four days ago. she denies any productive cough, fever, chills or night sweats. she admits to smoking a pack a day.at the time of my evaluation she was resting comfortably with no distress. she says that her sob has improved. CBC/BMP: 02/19/17 0523 02/16/17 1450 Significant Findings Laboratory Tests Test 02/16/17 02/17/17 02/18/17 02/19/17 14:50 04:30 03:58 05:23 White Blood Count 21.1 TH/MM3 17.8 TH/MM3 16.4 TH/MM3 12.9 TH/MM3 (4.0-11.0) (4.0-11.0) (4.0-11.0) (4.0-11.0) Mean Corpuscular Hemoglobin 26.4 PG (27.0-34.0) Mean Corpuscular Hemoglobin 31.2 % Concent (32.0-36.0) Neutrophils % (Manual) 83 % (16-70) 81 % (16-70) Band Neutrophils % 11 % (0-6) Lymphocytes % 2 % (9-44) Neutrophils # (Manual) 19.8 TH/MM3 11.2 TH/MM3 (1.8-7.7) (1.8-7.7) Toxic Vacuolation PRESENT (NONE SEEN) Blood Urea Nitrogen 20 MG/DL (7-18) Estimat Glomerular Filtration 63 ML/MIN (>89) Rate Random Glucose 148 MG/DL (74-106) Troponin I LESS THAN 0.02 NG/ML (0.02-0.05) Neutrophils (%) (Auto) 93.7 % 93.3 % (16.0-70.0) (16.0-70.0) Lymphocytes (%) (Auto) 5.0 % 4.7 % (9.0-44.0) (9.0-44.0) Neutrophils # (Auto) 16.7 TH/MM3 15.3 TH/MM3 (1.8-7.7) (1.8-7.7) Lymphocytes # (Auto) 0.9 TH/MM3 0.8 TH/MM3 (1.0-4.8) (1.0-4.8) Hemoglobin 11.4 GM/DL 11.4 GM/DL (11.6-15.3) (11.6-15.3) Hematocrit 34.6 % 34.4 % (35.0-46.0) (35.0-46.0) Imaging Last Impressions Chest X-Ray 02/16/17 1432 Signed Impressions: Service Date/Time: Thursday, February 16, 2017 15:05 - CONCLUSION: 1. Right basilar patchiness consistent with probable pneumonia. Clinical correlation is recommended. 2. Degenerative changes and scoliosis of the thoracolumbar spine. Sandip Garcia MD PE at Discharge GENERAL: This is a well-nourished, well-developed patient, in no apparent distress. CARDIOVASCULAR: Regular rate and regular rhythm without murmurs, gallops, or rubs. RESPIRATORY: mild bilateral wheezing GASTROINTESTINAL: Abdomen soft, non-tender, nondistended. Normal, active bowel sounds MUSCULOSKELETAL: Extremities without clubbing, cyanosis, or edema. NEURO: Alert & Oriented x4 to person, place, time, situation. Moves all ext x4 Hospital Course - sepsis due to pneumonia switch to po antibiotics- -possible COPD exacerbation switch to po steroids- advised to stop smoking- passed the walk test . -schizophrenia; resumed the home meds -DVt prophylaxis with Lovenox Pt Condition on Discharge: Good Discharge Disposition: DETENTION with [facility] Discharge Time: <= 30 minutes Discharge Instructions DIET: Follow Instructions for: Heart Healthy Diet Activities you can perform: Regular-No Restrictions Follow up Referrals: PCP Follow-up New Medications: Albuterol 18 GM Inh (Ventolin Hfa 18 GM Inh) 90 Mcg/Act Aer 2 PUFF INH Q6H PRN SHORTNESS OF BREATH #1 Ref 0 INHALER Amoxicillin-Clavulanate (Augmentin) 875-125 Mg Tab 1 TAB PO BID Infection Days 7 Ref 0 TAB Prednisone (Prednisone) 5 Mg Tab 5 MG PO DIRECTED 40 mg po daily for two days then 30 mg po daily for two days then 20 mg po daily for two days then 10 mg po daily for two days then 5 mg po daily for two days then stop. copd Days 10 Ref 0 TAB Continued Medications: Docusate Sodium (Dok) 100 Mg Cap #30 Docusate Sodium 100 mg (Dok 100 mg) 100 Mg Tab 100 MG PO TAB Famotidine (Pepcid) 20 Mg Tab 20 MG PO DAILY #60 Ref 1 TAB Fluoxetine (Fluoxetine) 20 Mg Capsule 20 MG PO DAILY PRN AGITATION AND/OR HALLUCINATION #30 Ref 0 CAP Fluoxetine Hcl (Fluoxetine Hcl) 20MG Cap 1 CAP PO DAILY #30 Ref 5 CAP Hydroxyzine Pamoate (Hydroxyzine Pamoate) 25 Mg Cap 50 MG PO ONCE #1 CAP Hydroxyzine Pamoate (Vistaril) 25 Mg Cap 25 MG PO BID Ref 0 CAP Mirabegron (Myrbetriq) 25 Mg Tab 25 MG .ROUTE DAILY PRN BLADDER SPASM #30 Ref 0 TAB Mirtazapine (Remeron) 15 Mg Tab 7.5 MG PO HS Depression Control #15 Ref 0 TAB Pantoprazole (Protonix) 20 Mg Tab 20 MG PO DAILY Reflux #30 Ref 0 TAB Risperidone (Risperidone) 4 Mg Tab Trihexyphenidyl (Trihexyphenidyl) 2 Mg Tab 2 MG PO BID Parkinson Disease Mgmt #60 Ref 0 TAB Trihexyphenidyl Hcl (Artane) 5 Mg Tab 5 MG PO HS Ref 0 Discontinued Medications: Meloxicam (Meloxicam) 7.5 Mg Tab 7.5 MG PO HS PRN PAIN SCALE 1 TO 5 Ref 0 TAB Marcellus Avery MD Feb 19, 2017 09:39
--- NOTE | 2017-02-19 09:39 | HHI.DCPOC ---
Discharge Care Plan Diagnosis: (1) Pneumonia Your Health Problems Are: Shortness of Breath Goals to Promote Your Health * To prevent worsening of your condition and complications * To maintain your health at the optimal level Directions to Meet Your Goals Take your medications as prescribed Follow your dietary instruction Follow activity as directed Keep your appointments as scheduled Take your immunizations and boosters as scheduled If your symptoms worsen call your PCP, if no PCP go to Urgent Care Center or Emergency Room Smoking is Dangerous to Your Health. Avoid second hand smoke Call the 24-hour hour crisis hotline for domestic abuse at Marcellus Avery MD Feb 19, 2017 09:38
[2017-02-19 12:00] VITALS: BP 159/74; PULSE 65; RESP 17; TEMP 97.6; O2SAT 94
[2017-02-19] MEDS ORDERED: AZITHROMYCIN 250 MG TAB PO SCH (16:00)
== END 2017-02-19 14:16 | DRG 871 ==
LOC: NEPC 14:19 → NEDA 16:24 → OBSVTOIN 16:46 → N07A 17:42
PROVIDERS: ADMIT Internal Medicine; ATTEND Internal Medicine
DX: A41.9 Sepsis, unspecified organism (principal); J18.9 Pneumonia, unspecified organism; J44.0 Chronic obstructive pulmonary disease with (acute) lower respiratory infection; J44.1 Chronic obstructive pulmonary disease with (acute) exacerbation; F20.9 Schizophrenia, unspecified; F32.9 Major depressive disorder, single episode, unspecified; K21.9 Gastro-esophageal reflux disease without esophagitis; F17.210 Nicotine dependence, cigarettes, uncomplicated
CPT/HCPCS: 71010; 80048; 83735; 84484; 85007; 85025; 85027; 87040; 93005; 94620; 94640; 94664; 96374; 96375; J0456; J0696; J1650; J2920; J2930; J7050

== ENCOUNTER 2017-04-03 12:45 | Emergency (ER) | payer MEDICARE, MEDICAID ==
[~2017-04-03] VITALS: Ht 160 cm; Wt 70.0 kg
[~2017-04-03 12:45] MED LIST changes: +AUGM875T3 PO; +DOCU1CAP39; +FAMO1TAB37 PO; +FLUO20CA12 PO; +MIRA25TA; +PANT20 PO; +PRED5TAB PO; +REME15TA PO; +TRIH2 PO; +VENTAER INH; +VIST25CA PO
[2017-04-03 12:47] VITALS: BP 159/74; PULSE 92; RESP 20; TEMP 99.1; O2SAT 95
--- NOTE | 2017-04-03 13:09 | PD ---
Physical Exam Date Seen by Provider: Apr 03, 2017 Time Seen by Provider: 13:07 Narrative 66 YOWF C/O SOB AND WHEEZING THIS AM. WORSE THIS PAST 2 WEEKS. NO CP. NO F/C/N/ V. VS REVIEWED AWAITING BED PLACEMENT Data Data Last Documented VS Vital Signs Date Time Temp Pulse Resp B/P Pulse Ox O2 Delivery O2 Flow Rate FiO2 04/03/17 12:47 99.1 92 20 159/74 95 Room Air MDM Supervised Visit with KARLEY: No Condition: Stable Abhay Vizcaino Apr 03, 2017 13:09
[2017-04-03 15:38] VITALS: BP 147/82; PULSE 97; RESP 24; TEMP 98.1; O2SAT 98
[2017-04-03 15:42] VITALS: BP 147/82; PULSE 97; RESP 24; TEMP 98.1; O2SAT 98
[2017-04-03] MEDS ORDERED: SODIUM CHLORIDE 0.9% FLUSH 10 ML FLUSH IVF PRN (15:45)
[2017-04-03] MEDS ORDERED: methylPREDNISolone SOD SUCC 125 MG/2 ML VIAL IVP ONE (15:45)
[2017-04-03] MEDS ORDERED: MIRTA15 PO (15:52)
[2017-04-03] MEDS ORDERED: RISP4TAB2 PO (15:52)
[2017-04-03] MEDS ORDERED: TYLE325T PO (15:52)
[2017-04-03] MEDS ORDERED: MELO7.5T4 PO (15:52)
--- NOTE | 2017-04-03 15:56 | PD ---
HPI Chief Complaint: Respiratory Symptoms Time Seen by Provider: 15:28 Travel History International Travel<30 days: No Contact w/Intl Traveler<30days: No Traveled to known affect area: No History of Present Illness HPI The patient is a 66-year-old female who presents to the emergency department from her assisted living facility for cough. The patient states she was recently admitted to the hospital 3 weeks ago for pneumonia. The patient was discharged home and completed treatment. The patient notes over the last 2 days she has had a productive cough producing white sputum, mild shortness of breath, but denies any chest pain. She denies any fever, chills, or sweats. She does have a history of tobacco use. The patient denies any chest pain, nausea, vomiting, abdominal pain, or lower extremity edema. The patient denies any history of DVT or pulmonary embolism. She patient denies any recent travel or surgery, was recently hospitalized for several days for pneumonia. Symptoms are mild to moderate, there are no current alleviating or exacerbating factors. PFSH Past Medical History Cardiovascular Problems: Yes High Cholesterol: Yes Diminished Hearing: No GERD: Yes Respiratory: Yes Immunizations Current: No Schizophrenia: Yes Menopausal: Yes Past Surgical History Cholecystectomy: Yes (GALL STONES REMOVED) Eye Surgery: Yes Hysterectomy: Yes Oral Surgery: Yes Other Surgery: Yes Social History Alcohol Use: No Tobacco Use: Yes Substance Use: No Allergies-Medications (Allergen,Severity, Reaction): Coded Allergies: No Known Allergies (Verified , 11/25/14) Reported Meds & Prescriptions Reported Meds & Active Scripts Active Ventolin Hfa 18 GM Inh (Albuterol Sulfate) 90 Mcg/Act Aer 2 Puff INH Q6H PRN Augmentin (Amoxicillin-Clavulanate) 875-125 Mg Tab 1 Tab PO BID 7 Days Reported Tylenol (Acetaminophen) 325 Mg Tab 650 Mg PO Q8HR PRN Risperidone 4 Mg Tab 4 Mg PO Q12HR Mirtazapine 15 Mg Tab 15 Mg PO HS Meloxicam 7.5 Mg Tab 7.5 Mg PO DAILY Trihexyphenidyl (Trihexyphenidyl HCl) 2 Mg Tab 2 Mg PO BID Protonix (Pantoprazole Sodium) 20 Mg Tab 20 Mg PO DAILY Myrbetriq (Mirabegron) 25 Mg Tab 25 Mg .ROUTE DAILY PRN Vistaril (Hydroxyzine Pamoate) 25 Mg Cap 25 Mg PO BID Fluoxetine (Fluoxetine HCl) 20 Mg Capsule 20 Mg PO DAILY PRN Pepcid (Famotidine) 20 Mg Tab 20 Mg PO DAILY Dok (Docusate Sodium) 100 Mg Cap Review of Systems Except as stated in HPI: all other systems reviewed are Neg General / Constitutional: No: Fever HENT: No: Lightheadedness Cardiovascular: No: Chest Pain or Discomfort Respiratory: Positive: Cough, Shortness of Breath Gastrointestinal: No: Nausea, Vomiting, Abdominal Pain Musculoskeletal: No: Edema Neurologic: No: Dizziness Physical Exam Narrative GENERAL: Awake, alert, pleasant 66-year-old female who appears her stated age and is in no obvious respiratory distress. SKIN: Focused skin assessment warm/dry. HEAD: Atraumatic. Normocephalic. EYES: No injection or drainage. ENT: No nasal bleeding or discharge. Breath smells of tobacco. NECK: Trachea midline. No JVD. CARDIOVASCULAR: Regular, tachycardic with a heart rate of 115. RESPIRATORY: Mild tachypnea with a respiratory rate of 22. Prolonged expiratory phase with diffuse wheezing. GASTROINTESTINAL: Abdomen soft, non-tender, nondistended. No rebound tenderness. MUSCULOSKELETAL: No obvious deformities. No clubbing. No cyanosis. No edema. NEUROLOGICAL: Awake and alert. No obvious cranial nerve deficits. Motor grossly within normal limits. Normal speech. PSYCHIATRIC: Appropriate mood and affect; insight and judgment normal. Data Data Last Documented VS Vital Signs Date Time Temp Pulse Resp B/P Pulse Ox O2 Delivery O2 Flow Rate FiO2 04/03/17 16:07 99 Nasal Cannula 2.00 04/03/17 15:42 98.1 97 24 147/82 Orders Complete Blood Count With Diff (04/03/17 15:37) Comprehensive Metabolic Panel (04/03/17 15:37) B-Type Natriuretic Peptide (04/03/17 15:37) Magnesium (Mg) (04/03/17 15:37) Ckmb (Isoenzyme) Profile (04/03/17 15:37) Troponin I (04/03/17 15:37) Blood Culture (04/03/17 15:37) Iv Access Insert/Monitor (04/03/17 15:37) Electrocardiogram (04/03/17 15:37) Ecg Monitoring (04/03/17 15:37) Oximetry (04/03/17 15:37) Oxygen Administration (04/03/17 15:37) Chest, Single Ap (04/03/17 15:37) Sodium Chloride 0.9% Flush (Ns Flush) (04/03/17 15:45) Methylprednisolone So Succ Inj (Solumedr (04/03/17 15:45) Albuterol-Ipratropium Neb (Duoneb Neb) (04/03/17 15:45) Lactic Acid (04/03/17 15:37) CKMB (04/03/17 15:55) CKMB% (04/03/17 15:55) Labs Laboratory Tests Test 04/03/17 15:55 White Blood Count 13.3 TH/MM3 Red Blood Count 4.67 MIL/MM3 Hemoglobin 13.1 GM/DL Hematocrit 39.5 % Mean Corpuscular Volume 84.7 FL Mean Corpuscular Hemoglobin 28.1 PG Mean Corpuscular Hemoglobin 33.2 % Concent Red Cell Distribution Width 15.1 % Platelet Count 271 TH/MM3 Mean Platelet Volume 8.3 FL Neutrophils (%) (Auto) 78.1 % Lymphocytes (%) (Auto) 12.4 % Monocytes (%) (Auto) 6.8 % Eosinophils (%) (Auto) 2.1 % Basophils (%) (Auto) 0.6 % Neutrophils # (Auto) 10.4 TH/MM3 Lymphocytes # (Auto) 1.6 TH/MM3 Monocytes # (Auto) 0.9 TH/MM3 Eosinophils # (Auto) 0.3 TH/MM3 Basophils # (Auto) 0.1 TH/MM3 CBC Comment DIFF FINAL Differential Comment Sodium Level 141 MEQ/L Potassium Level 4.1 MEQ/L Chloride Level 105 MEQ/L Carbon Dioxide Level 28.8 MEQ/L Anion Gap 7 MEQ/L Blood Urea Nitrogen 13 MG/DL Creatinine 0.95 MG/DL Estimat Glomerular Filtration 59 ML/MIN Rate Random Glucose 134 MG/DL Lactic Acid Level 0.9 mmol/L Calcium Level 9.3 MG/DL Magnesium Level 1.7 MG/DL Total Bilirubin 0.3 MG/DL Aspartate Amino Transf 15 U/L (AST/SGOT) Alanine Aminotransferase 21 U/L (ALT/SGPT) Alkaline Phosphatase 102 U/L Total Creatine Kinase 151 U/L Troponin I LESS THAN 0.02 NG/ML Total Protein 7.7 GM/DL Albumin 3.6 GM/DL [facility] Medical Decision Making Medical Screen Exam Complete: Yes Emergency Medical Condition: Yes Medical Record Reviewed: Yes Interpretation(s) EKG reveals normal sinus rhythm with a rate 87. Low QRS voltage precordial leads. Q wave noted in lead 3. Last Impressions Chest X-Ray 04/03/17 1537 Signed Impressions: Service Date/Time: Monday, April 03, 2017 15:49 - CONCLUSION: No acute disease. Veto Medina Jr., MD Laboratory Tests Test 04/03/17 15:55 White Blood Count 13.3 TH/MM3 Red Blood Count 4.67 MIL/MM3 Hemoglobin 13.1 GM/DL Hematocrit 39.5 % Mean Corpuscular Volume 84.7 FL Mean Corpuscular Hemoglobin 28.1 PG Mean Corpuscular Hemoglobin 33.2 % Concent Red Cell Distribution Width 15.1 % Platelet Count 271 TH/MM3 Mean Platelet Volume 8.3 FL Neutrophils (%) (Auto) 78.1 % Lymphocytes (%) (Auto) 12.4 % Monocytes (%) (Auto) 6.8 % Eosinophils (%) (Auto) 2.1 % Basophils (%) (Auto) 0.6 % Neutrophils # (Auto) 10.4 TH/MM3 Lymphocytes # (Auto) 1.6 TH/MM3 Monocytes # (Auto) 0.9 TH/MM3 Eosinophils # (Auto) 0.3 TH/MM3 Basophils # (Auto) 0.1 TH/MM3 CBC Comment DIFF FINAL Differential Comment Sodium Level 141 MEQ/L Potassium Level 4.1 MEQ/L Chloride Level 105 MEQ/L Carbon Dioxide Level 28.8 MEQ/L Anion Gap 7 MEQ/L Blood Urea Nitrogen 13 MG/DL Creatinine 0.95 MG/DL Estimat Glomerular Filtration 59 ML/MIN Rate Random Glucose 134 MG/DL Lactic Acid Level 0.9 mmol/L Calcium Level 9.3 MG/DL Magnesium Level 1.7 MG/DL Total Bilirubin 0.3 MG/DL Aspartate Amino Transf 15 U/L (AST/SGOT) Alanine Aminotransferase 21 U/L (ALT/SGPT) Alkaline Phosphatase 102 U/L Total Creatine Kinase 151 U/L Troponin I LESS THAN 0.02 NG/ML Total Protein 7.7 GM/DL Albumin 3.6 GM/DL Differential Diagnosis Differential diagnosis includes bronchitis, pneumonia, congestive heart failure , pleural effusion, congestive heart failure, pulmonary embolism, acute coronary syndrome. Narrative Course IV was established, labs were drawn and sent, and the patient was placed on cardiac telemetry monitoring and continuous pulse oximetry monitoring. EKG was ordered and interpreted. Chest x-ray was obtained. The patient received Solu- Medrol 125 mg intravenously, duo nebs 3, and was monitored in the emergency department. Chest x-rays negative. Laboratory evaluation is unremarkable. The patient was reevaluated at 5 PM, her symptoms had significantly improved. Patient was taken off oxygen, her O2 sat on room air was 95%. Heart rate was down to 90. The patient symptomatically feels better, will be discharged on prednisone, Zithromax, and albuterol inhaler. She is advised to follow-up with her primary physician. Diagnosis Primary Impression: Bronchitis Patient Instructions: General Instructions Additional Instructions: Medications as directed. Follow-up with a primary physician. Return if symptoms worsen or progress. Med/Other Pt SpecificInfo: Prescription(s) given Scripts Albuterol 18 GM Inh (Ventolin Hfa 18 GM Inh)90 Mcg/Act Aer2 Puff INH Q4-6H PRN ( SHORTNESS OF BREATH) #1 INHALER Ref 0 Prov:Patrick Adorno MD 04/03/17 Azithromycin (Zithromax Z-Graham)250 Mg [id number] Mg PO DIRECTED #1 DSPK Ref 0 500 MG (2 tabs) day 1, then 1 tab days 2-5. Prov:Patrick Adorno MD 04/03/17 Prednisone (Deltasone)20 Mg Tab40 Mg PO DAILY #5 TAB Ref 0 Prov:Patrick Adorno MD 04/03/17 Disposition: 01 DISCHARGE HOME Condition: Stable Patrick Adorno MD Apr 03, 2017 15:56
[2017-04-03 16:07] VITALS: O2SAT 99
[2017-04-03] MEDS: RESP: ALBUTEROL 2.5 MG/IPRATROPIUM 0.5 MG NEB (SCH) INH (16:07)
--- NOTE | 2017-04-03 16:10 | RADRPT ---
EXAM DATE/TIME: 04/03/2017 15:49 [facility] COMPARISON: CHEST SINGLE AP, February 16, 2017, 15:05. INDICATIONS : Short of breath. MEDICAL HISTORY : None. SURGICAL HISTORY : None. ENCOUNTER: Initial ACUITY: 1 day PAIN SCORE: 0/10 LOCATION: Bilateral chest FINDINGS: A single view of the chest demonstrates the lungs to be symmetrically aerated without evidence of mas s, infiltrate or effusion. The cardiomediastinal contours are unremarkable. Osseous structures are intact. A degenerative thoracic spine. CONCLUSION: No acute disease. Veto Medina Jr., MD on April 03, 2017 at 16:08 Board Certified Radiologist. This report was verified electronically.
[2017-04-03 16:32] LABS: AUTOMATED NEUTROPHIL # 10.4 TH/MM3 (1.8-7.7); BASOPHIL # 0.1 TH/MM3 (0-0.2); BASOPHIL % 0.6 % (0.0-2.0); EOSINOPHIL # 0.3 TH/MM3 (0-0.4); EOSINOPHIL % 2.1 % (0.0-4.0); HEMATOCRIT 39.5 % (35.0-46.0); HEMO FLAGS DIFF FINAL; LYMPH % 12.4 % (9.0-44.0); LYMPHOCYTE # 1.6 TH/MM3 (1.0-4.8); MEAN CELL VOLUME 84.7 FL (80.0-100.0); MEAN CORPUSCULAR HEMOGLOBIN 28.1 PG (27.0-34.0); MEAN CORPUSCULAR HGB CONC 33.2 % (32.0-36.0); MONO % 6.8 % (0.0-8.0); NEUT % 78.1 % (16.0-70.0); PLATELET COUNT 271 TH/MM3 (150-450); RED BLOOD COUNT 4.67 MIL/MM3 (4.00-5.30); RED CELL DISTRIBUTION WIDTH 15.1 % (11.6-17.2); WHITE BLOOD COUNT 13.3 TH/MM3 (4.0-11.0)
[2017-04-03 16:55] LABS: ALT (GPT) 21 U/L (10-53); ANION GAP 7 MEQ/L (5-15); AST (GOT) 15 U/L (15-37); BICARBONATE 28.8 MEQ/L (21.0-32.0); BLOOD UREA NITROGEN 13 MG/DL (7-18); CHLORIDE 105 MEQ/L (98-107); GLOMERULAR FILTRATION RATE 59 ML/MIN (>89); MAGNESIUM 1.7 MG/DL (1.5-2.5); POTASSIUM 4.1 MEQ/L (3.5-5.1); SODIUM (NA) 141 MEQ/L (136-145)
[2017-04-03 16:58] LABS: ALKALINE PHOSPHATASE 102 U/L (45-117); CREATINE KINASE 151 U/L (26-192); TOTAL BILIRUBIN ADULT 0.3 MG/DL (0.2-1.0)
[2017-04-03] MEDS ORDERED: VENTAER INH (17:02)
[2017-04-03] MEDS ORDERED: PRED-503 PO (17:02)
[2017-04-03] MEDS ORDERED: ZITHTAB PO (17:02)
[2017-04-03 17:16] LABS: CKMB 2.9 NG/ML (0.5-3.6)
[2017-04-03 18:49] VITALS: BP 150/67
--- NOTE | 2017-04-04 00:36 | EKG ---
Date Performed: 04/03/2017 Time Performed: 15:56:31 PTAGE: 66 years EKG: Sinus rhythm LOW QRS VOLTAGE IN PRECORDIAL LEADS BORDERLINE ECG PREVIOUS TRACING : 02/16/2017 15.11 Compared to prior tracing no significant change DOCTOR: Logan Munroe Interpretating Date/Time 04/04/2017 00:35:03
== END 2017-04-03 18:59 | disposition home or self-care (01) ==
LOC: NEPD 12:45
DX: J20.9 Acute bronchitis, unspecified (principal)
CPT/HCPCS: 71010; 80053; 82550; 82552; 83605; 83735; 83880; 84484; 85025; 87040; 93005; 94640; 94664; 96374; 99285; J2930

== ENCOUNTER 2017-08-09 09:05 | Inpatient (IN) | payer MEDICARE, MEDICAID ==
[~2017-08-09] VITALS: Ht 157.5 cm; Wt 69.9 kg
[~2017-08-09 09:05] MED LIST changes: -AUGM875T3 PO; +AZIT250T3 PO; -DOK100TA PO; -FLUO20TA20 PO; -HYDR1CAP30 PO; +LEVA500T33 PO; +MELO7.5T27 PO; +MIRTA15 PO; +PRED50 PO; -PRED5TAB PO; -REME15TA PO; -RISP4TAB2; +RISP4TAB2 PO; -TRIH5TAB2 PO; +TYLE325T PO
[2017-08-09 09:17] VITALS: BP 123/59; PULSE 102; RESP 25; TEMP 101.2; O2SAT 95
[2017-08-09] MEDS ORDERED: SODIUM CHLOR 0.9% 1000 ML INJ 100 ML IV ONE (09:23)
[2017-08-09] MEDS ORDERED: SODIUM CHLOR 0.9% 1000 ML INJ 1,000 ML IV ONE ×2 (09:23)
[2017-08-09] MEDS ORDERED: ACETAMINOPHEN 325 MG TAB PO ONE (09:30)
[2017-08-09] MEDS ORDERED: PIPERACIL-TAZO 4.5 GM PREMIX 100 ML IV STA (09:41)
[2017-08-09] MEDS ORDERED: AZITHROMYCIN INJ 500 MG in SODIUM CHLOR 0.9% 250 ML INJ 250 ML IV STA (09:41)
--- NOTE | 2017-08-09 09:41 | PD ---
HPI . Cough, fever and shortness of breath Chief Complaint: Respiratory Symptoms Time Seen by Provider: 09:23 Travel History International Travel<30 days: No Contact w/Intl Traveler<30days: No Traveled to known affect area: No History of Present Illness HPI This patient is an extremely poor historian. I obtained most of my history from the EMS report and from reviewing her old records. She does state that she has a cough productive of yellow sputum. She cannot tell me when she got sick. EMS reports a temperature of 101.2 and an initial room air saturation of 85%. Old records reveal a history of COPD and a recent history of sepsis secondary to pneumonia on June 24, 2017. She was treated with Rocephin and Zithromax. [facility] Past Medical History Cardiovascular Problems: Yes High Cholesterol: Yes COPD: Yes Diabetes: Yes Diminished Hearing: No GERD: Yes Respiratory: Yes Immunizations Current: No Schizophrenia: Yes Menopausal: Yes Past Surgical History Abdominal Surgery: Yes (gallstones) Cholecystectomy: Yes (GALL STONES REMOVED) Eye Surgery: Yes Hysterectomy: Yes Oral Surgery: Yes Other Surgery: Yes Social History Alcohol Use: No Tobacco Use: Yes (pack a day ) Substance Use: Yes (marijuana, cocaine) Allergies-Medications (Allergen,Severity, Reaction): Coded Allergies: No Known Allergies (Verified Allergy, Unknown, 08/09/17) Reported Meds & Prescriptions Reported Meds & Active Scripts Active Ventolin Hfa 18 GM Inh (Albuterol Sulfate) 90 Mcg/Act Aer 2 Puff INH Q4-6H PRN Reported Tylenol (Acetaminophen) 325 Mg Tab 650 Mg PO Q8HR PRN Risperidone 4 Mg Tab 4 Mg PO Q12HR Mirtazapine 15 Mg Tab 15 Mg PO HS Meloxicam 7.5 Mg Tab 7.5 Mg PO DAILY Trihexyphenidyl (Trihexyphenidyl HCl) 2 Mg Tab 2 Mg PO BID Protonix (Pantoprazole Sodium) 20 Mg Tab 20 Mg PO DAILY Myrbetriq (Mirabegron) 25 Mg Tab 25 Mg .ROUTE DAILY PRN Vistaril (Hydroxyzine Pamoate) 25 Mg Cap 25 Mg PO BID Fluoxetine (Fluoxetine HCl) 20 Mg Capsule 20 Mg PO DAILY PRN Pepcid (Famotidine) 20 Mg Tab 20 Mg PO DAILY Dok (Docusate Sodium) 100 Mg Cap Review of Systems ROS Limitations: Poor Historian General / Constitutional: Positive: Fever Respiratory: Positive: Cough, Shortness of Breath Physical Exam Narrative GENERAL: The patient is awake and alert. SKIN: warm/dry. Good color. HEAD: Normocephalic. Atraumatic. EYES: Pupils equal and round. No scleral icterus. No injection or drainage. ENT: No nasal bleeding or discharge. Mucous membranes pink and moist. NECK: Trachea midline. Full range of motion without pain.. CARDIOVASCULAR: Regular rate and rhythm. Heart sounds are normal. RESPIRATORY: No accessory muscle use. Diffuse coarse expiratory wheezing. Rhonchi in the left base. GASTROINTESTINAL: Abdomen soft. Nontender. Bowel sounds present. Nondistended. MUSCULOSKELETAL: No obvious deformities. NEUROLOGICAL: Awake and alert. No obvious cranial nerve deficits. Motor grossly within normal limits. Normal speech. PSYCHIATRIC: Appropriate mood and affect; judgment is impossible to assess. Data Data Last Documented VS Vital Signs Date Time Temp Pulse Resp B/P (MAP) Pulse Ox O2 Delivery O2 Flow Rate FiO2 08/09/17 11:17 99.2 87 18 128/58 (81) 97 Nasal Cannula 4.00 Orders Orders Sepsis Workup Initiated (08/09/17 ) Complete Blood Count With Diff (08/09/17 09:23) Comprehensive Metabolic Panel (08/09/17 09:23) Lactic Acid Sepsis Protocol (08/09/17 09:23) Urinalysis - C+S If Indicated (08/09/17 09:23) Blood Culture (08/09/17 09:23) Chest, Single Ap (08/09/17 09:23) Ecg Monitoring (08/09/17 09:23) Iv Access Insert/Monitor (08/09/17 09:23) Cath For Specimen (08/09/17 09:23) Oximetry (08/09/17 09:23) Oxygen Administration (08/09/17 09:23) Acetaminophen (Tylenol) (08/09/17 09:30) Sodium Chlor 0.9% 1000 Ml Inj (Ns 1000 M (08/09/17 09:23) Sodium Chlor 0.9% 1000 Ml Inj (Ns 1000 M (08/09/17 09:23) Sodium Chlor 0.9% 1000 Ml Inj (Ns 1000 M (08/09/17 09:23) Piperacil-Tazo 4.5 Gm Premix (Zosyn 4.5 (08/09/17 09:41) Azithromycin Inj (Zithromax Inj) (08/09/17 09:41) ^ Other Nursing Orders (08/09/17 12:03) Admit Order (Ed Use Only) (08/09/17 ) Predictive Maintenance Technician / Telemetry RAJAT.Q8H (08/09/17 12:02) Vital Signs (Adult) Q4H (08/09/17 12:02) Diet Heart Healthy (08/09/17 Lunch) Activity Oob With Assistance (08/09/17 12:02) Notify Dr: Other (08/09/17 12:02) Labs Laboratory Tests Test 08/09/17 09:30 08/09/17 11:15 White Blood Count 18.6 TH/MM3 Red Blood Count 4.42 MIL/MM3 Hemoglobin 11.6 GM/DL Hematocrit 36.0 % Mean Corpuscular Volume 81.4 FL Mean Corpuscular Hemoglobin 26.3 PG Mean Corpuscular Hemoglobin Concent 32.3 % Red Cell Distribution Width 18.3 % Platelet Count 270 TH/MM3 Mean Platelet Volume 7.9 FL Neutrophils (%) (Auto) 89.9 % Lymphocytes (%) (Auto) 2.5 % Monocytes (%) (Auto) 6.7 % Eosinophils (%) (Auto) 0.4 % Basophils (%) (Auto) 0.5 % Neutrophils # (Auto) 16.7 TH/MM3 Lymphocytes # (Auto) 0.5 TH/MM3 Monocytes # (Auto) 1.3 TH/MM3 Eosinophils # (Auto) 0.1 TH/MM3 Basophils # (Auto) 0.1 TH/MM3 CBC Comment DIFF FINAL Differential Comment Blood Urea Nitrogen 12 MG/DL Creatinine 0.82 MG/DL Random Glucose 187 MG/DL Total Protein 7.3 GM/DL Albumin 3.3 GM/DL Calcium Level 8.6 MG/DL Alkaline Phosphatase 92 U/L Aspartate Amino Transf (AST/SGOT) 18 U/L Alanine Aminotransferase (ALT/SGPT) 15 U/L Total Bilirubin 0.6 MG/DL Sodium Level 138 MEQ/L Potassium Level 3.8 MEQ/L Chloride Level 103 MEQ/L Carbon Dioxide Level 27.5 MEQ/L Anion Gap 8 MEQ/L Estimat Glomerular Filtration Rate 70 ML/MIN Lactic Acid Level 1.2 mmol/L Urine Color LIGHT-YELLOW Urine Turbidity CLEAR Urine pH 6.5 Urine Specific [place] 1.008 Urine Protein NEG mg/dL Urine Glucose (UA) NEG mg/dL Urine Ketones NEG mg/dL Urine Occult Blood NEG Urine Nitrite NEG Urine Bilirubin NEG Urine Urobilinogen LESS THAN 2.0 MG/DL Urine Leukocyte Esterase SMALL Urine RBC 1 /hpf Urine WBC 1 /hpf Urine Squamous Epithelial Cells <1 /hpf Urine Mucus FEW /lpf Microscopic Urinalysis Comment CATH-CULT NOT IND MDM Medical Decision Making Medical Screen Exam Complete: Yes Emergency Medical Condition: Yes Medical Record Reviewed: Yes (medical history includes COPD, schizophrenia and GERD. She had the recent hospitalization on 06/24/17 for sepsis due to pneumonia.) Differential Diagnosis Differential diagnosis of fever includes but is not limited to viral illness, strep throat, otitis media, pneumonia, sepsis, UTI Narrative Course Vital Signs Date Time Temp Pulse Resp B/P (MAP) Pulse Ox O2 Delivery O2 Flow Rate FiO2 08/09/17 09:19 102 24 95 Nasal Cannula 4.00 08/09/17 09:17 101.2 102 25 123/59 (80) 95 This patient does meet SIRS criteria. Sepsis workup has been initiated. Since this patient was recently hospitalized for sepsis secondary to pneumonia, she will be empirically started on antibiotics for HCAP. CXR: 1. Bibasilar interstitial prominence is nonspecific and could represent some degree of vascular congestion/mild overload. Some degree of fibrosis cannot be excluded, however. 2. No superimposed acute infiltrate or effusion The chest x-ray was independently viewed by me. CBC Diagram 08/09/17 09:30 LA 1.2 BMP Diagram 08/09/17 09:30 Total Protein 7.3, Albumin 3.3 L, Calcium Level 8.6, Alkaline Phosphatase 92, Aspartate Amino Transf (AST/SGOT) 18, Alanine Aminotransferase (ALT/SGPT) 15, Total Bilirubin 0.6 UA is neg. The patient is resting comfortably on oxygen at 4 L. Her oxygen saturation is 98% on 4 L. She is now ready for admission for sepsis, presumed source respiratory. Vital Signs Date Time Temp Pulse Resp B/P (MAP) Pulse Ox O2 Delivery O2 Flow Rate FiO2 08/09/17 11:17 99.2 87 18 128/58 (81) 97 Nasal Cannula 4.00 08/09/17 09:42 95 Nasal Cannula 4.00 08/09/17 09:42 Nasal Cannula 4.00 08/09/17 09:19 102 24 95 Nasal Cannula 4.00 08/09/17 09:17 101.2 102 25 123/59 (80) 95 Critical Care Narrative Aggregate critical care time was 30 minutes. Time to perform other separately billable procedures was not included in the critical care time. My time did not include minutes spent treating any other patients simultaneously or on activities that did not directly contribute to the patient's treatment. The services I provided to this patient were to treat and/or prevent clinically significant deterioration due to SIRS I provided critical care services requiring my management, as noted below: Chart data review, documentation time, medication orders and management, vital sign assessments/reviewing monitor data, ordering and reviewing lab tests, ordering and interpreting/reviewing x-rays and diagnostic studies, care of the patient and discussion of the patient with the admitting physicians Sepsis Criteria SIRS Criteria (2 or more): Temp > 100.9 or < 96.8, Heart rate over 90, RR > 20 or PaCO2 < 32, WBC > 03849, < 4000 or > 10% bands Sepsis Criteria (SIRS+source): Infect source susp/known Criteria Outcome: Meets SIRS criteria, Meets sepsis criteria Physician Communication Physician Communication Dr. Rdoas. She asked that I stop fluids as her CXR possibly shows pulm vasc leroy. Diagnosis Primary Impression: Sepsis Qualified Codes: A41.9 - Sepsis, unspecified organism Admitting Information Admitting Physician Requests: Admit Condition: Stable Grace Fisher MD Aug 09, 2017 09:41
[2017-08-09 09:47] LABS: AUTOMATED NEUTROPHIL # 16.7 TH/MM3 (1.8-7.7); BASOPHIL # 0.1 TH/MM3 (0-0.2); BASOPHIL % 0.5 % (0.0-2.0); EOSINOPHIL # 0.1 TH/MM3 (0-0.4); EOSINOPHIL % 0.4 % (0.0-4.0); HEMO FLAGS DIFF FINAL; LYMPH % 2.5 % (9.0-44.0); LYMPHOCYTE # 0.5 TH/MM3 (1.0-4.8); MEAN CELL VOLUME 81.4 FL (80.0-100.0); MEAN CORPUSCULAR HEMOGLOBIN 26.3 PG (27.0-34.0); MEAN CORPUSCULAR HGB CONC 32.3 % (32.0-36.0); MONO % 6.7 % (0.0-8.0); NEUT % 89.9 % (16.0-70.0); PLATELET COUNT 270 TH/MM3 (150-450); RED BLOOD COUNT 4.42 MIL/MM3 (4.00-5.30); RED CELL DISTRIBUTION WIDTH 18.3 % (11.6-17.2); WHITE BLOOD COUNT 18.6 TH/MM3 (4.0-11.0)
--- NOTE | 2017-08-09 10:02 | RADRPT ---
EXAM DATE/TIME: 08/09/2017 09:34 [facility] COMPARISON: CHEST SINGLE AP, June 24, 2017, 9:15. INDICATIONS : Cough, congestion, fever. MEDICAL HISTORY : Chronic obstructive pulmonary disease. Diabetes mellitus type II. Gastroesophageal reflux disease. Smoker. SURGICAL HISTORY : Hysterectomy. ENCOUNTER: Initial ACUITY: 2 weeks PAIN SCORE: 0/10 LOCATION: Bilateral chest FINDINGS: A single view of the chest demonstrates the lungs to be symmetrically aerated and predominately bibas ilar interstitial prominence possibly representing some degree of vascular congestion or volume overl oad. No superimposed acute infiltrate. Heart size is normal. Degenerative spurring of the dorsal spin e. CONCLUSION: 1. Bibasilar interstitial prominence is nonspecific and could represent some degree of vascular conge stion/mild overload. Some degree of fibrosis cannot be excluded, however. 2. No superimposed acute infiltrate or effusion Bruno Vela MD on August 09, 2017 at 9:58 Board Certified Radiologist. This report was verified electronically.
[2017-08-09 10:05] LABS: ALT (GPT) 15 U/L (10-53)
[2017-08-09 10:08] LABS: ALKALINE PHOSPHATASE 92 U/L (45-117); TOTAL BILIRUBIN ADULT 0.6 MG/DL (0.2-1.0)
[2017-08-09 10:11] LABS: ANION GAP 8 MEQ/L (5-15); AST (GOT) 18 U/L (15-37); BICARBONATE 27.5 MEQ/L (21.0-32.0); BLOOD UREA NITROGEN 12 MG/DL (7-18); CHLORIDE 103 MEQ/L (98-107); GLOMERULAR FILTRATION RATE 70 ML/MIN (>89); POTASSIUM 3.8 MEQ/L (3.5-5.1); SODIUM (NA) 138 MEQ/L (136-145)
[2017-08-09 11:17] VITALS: BP 128/58; PULSE 87; RESP 18; TEMP 99.2; O2SAT 97
[2017-08-09 11:28] LABS: BLOOD, URINE NEG (NEG); GLUCOSE,URINE NEG (NEG); KETONE, URINE NEG (NEG); MUCUS URINE FEW /lpf (OCC); NITRITE,URINE NEG (NEG); PH, URINE 6.5 (5.0-8.5); SQUAMOUS EPITHELIAL CELL URINE <1 /hpf (0-5); URINE COLOR LIGHT-YELLOW (YELLW/STRAW)
[2017-08-09 11:30] LABS: COMMENT (UR) CATH-CULT NOT IND; CULTURE IF INDICATED CATH CULTURE NOT IND
[2017-08-09] MEDS ORDERED: SODIUM CHLORIDE 0.9% FLUSH 10 ML FLUSH IV FLUSH PRN (12:15)
[2017-08-09] MEDS ORDERED: NALOXONE HCL 0.4 MG/ML AMP IV PUSH PRN (12:15)
--- NOTE | 2017-08-09 12:35 | HHI.HP ---
HPI Service [facility] Primary Care Physician Unknown Admission Diagnosis sepsis Diagnoses: Chief Complaint: shortness of breath Travel History International Travel<30 Days: No Contact w/Intl Traveler <30 Da: No Traveled to Known Affected Are: No History of Present Illness History from patient, ER physician communication, and review of medical records. Patient is quite sleepy during my interview. However she would awakens to verbal stimuli. Most of the history is given by the patient herself. She states that she came to the hospital because she was having shortness of breath. She also reports of cough. Nonproductive. She does not know the temperature. She reports of nausea. Denies vomiting. Denies any chest pains/palpitations/dizziness/syncopal episodes. Denies any abdominal pain. Denies any diarrhea. Denies any urinary symptoms. denies any black or red stools or blood in her urine. Patient tells me that she lives at [facility]. She denies being on oxygen at the assisted living facility. She gives me her sister's telephone number which is [phone]. In the emergency room, patient was given Zosyn and azithromycin. She received 3 L total of normal saline fluid bolus in ER as well. Chest x-ray reveals bilateral pulmonary edema. Patient denies any recent peripheral edema or history of CHF. No echo in chart. Patient was recently admitted to our hospital last month. She was discharged on June 28, 2017. She was admitted at that time for pneumonia. Review of Systems Except as stated in HPI: all other systems reviewed are Neg Past Family Social History Past Medical History Hypertension Denies any cardiac history COPD. Stated she quit smoking about 3-4 years ago. History of CVA with residual left-sided mild weakness. per pt's report Schizophrenia GERD Bladder spasms Denies any liver problem/kidney problems/seizures/thyroid problems/cancers. Past Surgical History Patient is not able to recall her surgical history. Allergies: Coded Allergies: No Known Allergies (Verified Allergy, Unknown, 08/09/17) Family History None that she knows of. Social History Stated she quit smoking and drinking about 4 years ago. Not able to quantify how much she used to smoke or drink. Denies any drug abuse. Lives at an assisted living facility [facility]. Has a sister who lives in town. Physical Exam Vital Signs Vital Signs Date Time Temp Pulse Resp B/P (MAP) Pulse Ox O2 Delivery O2 Flow Rate FiO2 08/09/17 11:17 99.2 87 18 128/58 (81) 97 Nasal Cannula 4.00 08/09/17 09:42 95 Nasal Cannula 4.00 08/09/17 09:42 Nasal Cannula 4.00 08/09/17 09:19 102 24 95 Nasal Cannula 4.00 08/09/17 09:17 101.2 102 25 123/59 (80) 95 Physical Exam GENERAL: This is a well-nourished, well-developed patient, tachypneic at rest, pleasant though sleepy during my interview SKIN: No rashes, ecchymoses or lesions. Cool and dry. HEAD: Atraumatic. Normocephalic. No temporal or scalp tenderness. EYES: No scleral icterus. No injection or drainage. ENT: Nose without bleeding, purulent drainage or septal hematoma. Airway patent. NECK: Trachea midline. No JVD Supple, nontender, no meningeal signs. CARDIOVASCULAR: Regular rate and rhythm without murmurs, gallops, or rubs. RESPIRATORY: bilateral upper airway congested sounds, equal air entry, mild basilar crepitations GASTROINTESTINAL: Abdomen soft, non-tender, nondistended. . No guarding. MUSCULOSKELETAL: Extremities without clubbing, cyanosis, or edema. No calf tenderness. NEUROLOGICAL: easily wakes up to verbal stimuli. Motor and sensory grossly within normal limits. Normal speech. Laboratory Laboratory Tests Test 08/09/17 09:30 08/09/17 11:15 White Blood Count 18.6 Red Blood Count 4.42 Hemoglobin 11.6 Hematocrit 36.0 Mean Corpuscular Volume 81.4 Mean Corpuscular Hemoglobin 26.3 Mean Corpuscular Hemoglobin Concent 32.3 Red Cell Distribution Width 18.3 Platelet Count 270 Mean Platelet Volume 7.9 Neutrophils (%) (Auto) 89.9 Lymphocytes (%) (Auto) 2.5 Monocytes (%) (Auto) 6.7 Eosinophils (%) (Auto) 0.4 Basophils (%) (Auto) 0.5 Neutrophils # (Auto) 16.7 Lymphocytes # (Auto) 0.5 Monocytes # (Auto) 1.3 Eosinophils # (Auto) 0.1 Basophils # (Auto) 0.1 CBC Comment DIFF FINAL Differential Comment Blood Urea Nitrogen 12 Creatinine 0.82 Random Glucose 187 Total Protein 7.3 Albumin 3.3 Calcium Level 8.6 Alkaline Phosphatase 92 Aspartate Amino Transf (AST/SGOT) 18 Alanine Aminotransferase (ALT/SGPT) 15 Total Bilirubin 0.6 Sodium Level 138 Potassium Level 3.8 Chloride Level 103 Carbon Dioxide Level 27.5 Anion Gap 8 Estimat Glomerular Filtration Rate 70 Lactic Acid Level 1.2 Urine Color LIGHT-YELLOW Urine Turbidity CLEAR Urine pH 6.5 Urine Specific [place] 1.008 Urine Protein NEG Urine Glucose (UA) NEG Urine Ketones NEG Urine Occult Blood NEG Urine Nitrite NEG Urine Bilirubin NEG Urine Urobilinogen LESS THAN 2.0 Urine Leukocyte Esterase SMALL Urine RBC 1 Urine WBC 1 Urine Squamous Epithelial Cells <1 Urine Mucus FEW Microscopic Urinalysis Comment CATH-CULT NOT IND Date/Time Source Procedure Growth Status 08/09/17 09:30 Blood Peripheral Aerobic Blood Culture Pending Received 08/09/17 09:30 Blood Peripheral Anaerobic Blood Culture Pending Received Result Diagram: 08/09/1792908/09/17929 Imaging Last 48 hours Impressions Chest X-Ray 08/09/17922 Signed Impressions: Service Date/Time: July 09:34 - CONCLUSION: 1. Bibasilar interstitial prominence is nonspecific and could represent some degree of vascular congestion/mild overload. Some degree of fibrosis cannot be excluded, however. 2. No superimposed acute infiltrate or effusion Bruno Vela MD Caprini VTE Risk Assessment Caprini VTE Risk Assessment: Mod/High Risk (score >= 2) Caprini Risk Assessment Model Point Value = 1 Point Value = 2 Point Value = 3 Point Value = 5 Age 41-60 Minor surgery BMI > 25 kg/m2 Swollen legs Varicose veins or History of unexplained or recurrent spontaneous Oral contraceptives or hormone replacement Sepsis (< 1 month) Serious lung disease, including pneumonia (< 1 month) Abnormal pulmonary function Acute myocardial infarction Congestive heart failure (< 1 month) History of inflammatory bowel disease Medical patient at bed rest Age 61-74 Arthroscopic surgery Major open surgery (> 45 min) Laparoscopic surgery (> 45 min) Malignancy Confined to bed (> 72 hours) Immobilizing plaster cast Central venous access Age >= 75 History of VTE Family history of VTE Factor V Leiden Prothrombin [id number] Lupus anticoagulant Anticardiolipin antibodies Elevated serum homocysteine Heparin-induced thrombocytopenia Other congenital or acquired thrombophilia Stroke (< 1 month) Elective arthroplasty Hip, pelvis, or leg fracture Acute spinal cord injury (< 1 month) Prophylaxis Regimen Total Risk Factor Score Risk Level Prophylaxis Regimen 0-1 Low Early ambulation 2 Moderate Order ONE of the following: *Sequential Compression Device (SCD) *Heparin 5000 units SQ BID 3-4 Higher Order ONE of the following medications: *Heparin 5000 units SQ TID *Enoxaparin/Lovenox 40 mg SQ daily (WT < 150 kg, CrCl > 30 mL/min) *Enoxaparin/Lovenox 30 mg SQ daily (WT < 150 kg, CrCl > 10-29 mL/min) *Enoxaparin/Lovenox 30 mg SQ BID (WT < 150 kg, CrCl > 30 mL/min) AND/OR *Sequential Compression Device (SCD) 5 or more Highest Order ONE of the following medications: *Heparin 5000 units SQ TID (Preferred with Epidurals) *Enoxaparin/Lovenox 40 mg SQ daily (WT < 150 kg, CrCl > 30 mL/min) *Enoxaparin/Lovenox 30 mg SQ daily (WT < 150 kg, CrCl > 10-29 mL/min) *Enoxaparin/Lovenox 30 mg SQ BID (WT < 150 kg, CrCl > 30 mL/min) AND *Sequential Compression Device (SCD) Assessment and Plan Assessment and Plan Impression: Dyspnea Hypoxia with O2 saturation of 85% on room air per EMS reports Fever of 101.2 by EMS Pulmonary venous congestion present on chest x-ray. The patient did receive 3 L of normal saline bolus in ER. Plan: BNP stat. Stopped fluids. The patient's lung exam is mostly significant for upper airway congestion. However she is quite dyspneic at rest. Would obtain CT pulmonary angiogram to rule out pulmonary embolism. This would also better reveal for possible pulmonary edema/pneumonia. If CT reveals significant edema, we'll diurese the patient. At present, patient is comfortable on nasal cannula. Serial cardiac enzymes and EKG. Echocardiogram in a.m. We'll follow blood culture results. Monitor for fever trends. Oxygen supplementation. Patient received Zosyn and azithromycin in ER. For now, I would start patient on Levaquin by mouth. Watch for fluid overload. Nursing staff is informed to call patient's assisted living facility [facility] to get more information including her home medications. Nursing staff to update EMR with med reconciliation. DVT prophylaxis with Lovenox. Discussed Condition With patient, ER physician, nursing staff Physician Certification 2 Midnight Certification Type: Admission for Inpatient Services Order for Inpatient Services The services are ordered in accordance with Medicare regulations or non- Medicare payer requirements, as applicable. In the case of services not specified as inpatient-only, they are appropriately provided as inpatient services in accordance with the 2-midnight benchmark. Estimated LOS (days): 2 days is the estimated time the patient will need to remain in the hospital, assuming treatment plan goals are met and no additional complications. Post-Hospital Plan: Residential/Rebeca Jon MD Aug 09, 2017 12:34
[2017-08-09] MEDS ORDERED: GABA300C5 PO (13:42)
[2017-08-09] MEDS ORDERED: NICO21DI2 T-DERMAL (13:42)
[2017-08-09] MEDS ORDERED: SYMB160A INH (13:42)
[2017-08-09] MEDS ORDERED: RESP: IPRATROPIUM 0.5 MG/2.5 ML NEB NEB PRN (14:00)
[2017-08-09 16:00] VITALS: BP 135/63; PULSE 69; RESP 16; TEMP 98.2; O2SAT 100
[2017-08-09] MEDS ORDERED: IOHEXOL 350 MG/ML 10 ML VIAL (for RAD DIAG) IVCONTRAST ONE (18:54)
[2017-08-09 18:58] LABS: CREATINE KINASE 56 U/L (26-192)
--- NOTE | 2017-08-09 19:18 | RADRPT ---
EXAM DATE/TIME: 08/09/2017 18:48 [facility] COMPARISON: No previous studies available for comparison. INDICATIONS : Shortness of breath. IV CONTRAST: 70 cc Omnipaque 350 (iohexol) IV RADIATION DOSE: 22.86 CTDIvol (mGy) MEDICAL HISTORY : Cardiovascular disease. Chronic obstructive pulmonary disease. Diabetes mellitus type 2. SURGICAL HISTORY : None. ENCOUNTER: Initial ACUITY: 1 day PAIN SCALE: 0/10 LOCATION: chest TECHNIQUE: Volumetric scanning of the chest was performed using a pulmonary embolism protocol MIP images were re constructed. Using automated exposure control and adjustment of the mA and/or kV according to patien t size, radiation dose was kept as low as reasonably achievable to obtain optimal diagnostic quality images. DICOM format image data is available electronically for review and comparison. Follow-up recommendations for detected pulmonary nodules are based at a minimum on nodule size and pa tient risk factors according to Fleischner Society Guidelines. FINDINGS: PULMONARY ARTERIES: No filling defects are seen in the pulmonary arteries through the segmental level. LUNGS: Abnormal appearance the right lung with multifocal small irregular margin opacities, all measuring le ss than 5 mm helical diffusely throughout the lung. On the left side, there are no focal opacities. There is some mild atelectasis or scarring in the costophrenic angle. PLEURAE: There is no pleural thickening or pleural effusion. MEDIASTINUM: There is a 1.8 cm nonenhancing area in the right infrahilar region which may represent a mass or umer opathy. The subcarinal node is enlarged measuring 1.9 cm. No pretracheal or AP window adenopathy. CONCLUSION: 1. The study is negative for pulmonary embolism. 2. Evidence of right hilar and subcarinal adenopathy and numerous small subcentimeter opacities diffu sely throughout the right lung suggests hematogenous process. Malignancy cannot be excluded. Veto Lunsford MD on August 09, 2017 at 19:12 Board Certified Radiologist. This report was verified electronically.
[2017-08-09 20:00] VITALS: BP 133/62; PULSE 75; RESP 24; TEMP 98.5; O2SAT 99
[2017-08-09] MEDS ORDERED: FLUoxetine HCL 20 MG CAP PO PRN (20:30)
[2017-08-09] MEDS ORDERED: GLUCAGON 1 MG/ML VIAL OTHER PRN (20:30)
[2017-08-09] MEDS ORDERED: DEXTROSE 50% IN WATER 50 ML VIAL(D50) IV PUSH PRN (20:30)
[2017-08-09] MEDS: INSULIN ASPART SUPPLEMENTAL SCALE SQ SCH (21:00)
[2017-08-09 21:29] VITALS: O2SAT 98
[2017-08-09] MEDS: RESP: IPRATROPIUM 0.5 MG/2.5 ML NEB NEB SCH (22:00)
[2017-08-09 22:27] LABS: CREATINE KINASE 52 U/L (26-192)
[2017-08-09] MEDS: TRIHEXYPHENIDYL HCL 2 MG TAB PO SCH (22:57)
[2017-08-09] MEDS: risperiDONE 1 MG TAB PO SCH (22:57)
[2017-08-09] MEDS: BUDESONIDE-FORMOTEROL 160/4.5 MCG INHALER INH SCH (22:57)
[2017-08-09] MEDS: MIRTAZAPINE 15 MG TAB PO SCH (22:58)
[2017-08-09] MEDS: GABAPENTIN 300 MG CAP PO SCH (22:58)
[2017-08-09] MEDS: SODIUM CHLORIDE 0.9% FLUSH 10 ML FLUSH IV FLUSH SCH (22:58)
[2017-08-09] MEDS: hydrOXYzine PAMOATE 25 MG CAP PO SCH (22:58)
[2017-08-10] VITALS (9 sets, daily range): BP systolic 111–183; BP diastolic 56–79; PULSE 70–86; RESP 17–22; TEMP 98.6–99.4; O2SAT 93–100
[2017-08-10] MEDS: RESP: IPRATROPIUM 0.5 MG/2.5 ML NEB NEB SCH ×4 (05:23→20:49)
[2017-08-10] MEDS: INSULIN ASPART SUPPLEMENTAL SCALE SQ SCH ×2 (08:00→12:00)
[2017-08-10 08:59] LABS: AUTOMATED NEUTROPHIL # 9.4 TH/MM3 (1.8-7.7); BASOPHIL % 0.4 % (0.0-2.0); EOSINOPHIL # 0.2 TH/MM3 (0-0.4); EOSINOPHIL % 1.7 % (0.0-4.0); HEMATOCRIT 31.3 % (35.0-46.0); HEMO FLAGS DIFF FINAL; LYMPH % 10.5 % (9.0-44.0); LYMPHOCYTE # 1.2 TH/MM3 (1.0-4.8); MEAN CELL VOLUME 82.9 FL (80.0-100.0); MEAN CORPUSCULAR HEMOGLOBIN 27.2 PG (27.0-34.0); MEAN CORPUSCULAR HGB CONC 32.9 % (32.0-36.0); NEUT % 80.4 % (16.0-70.0); PLATELET COUNT 256 TH/MM3 (150-450); RED BLOOD COUNT 3.78 MIL/MM3 (4.00-5.30); RED CELL DISTRIBUTION WIDTH 17.9 % (11.6-17.2); WHITE BLOOD COUNT 11.7 TH/MM3 (4.0-11.0)
[2017-08-10] MEDS: REMOVE OLD PATCH T-DERMAL SCH (09:00)
[2017-08-10] MEDS: TRIHEXYPHENIDYL HCL 2 MG TAB PO SCH ×2 (09:09→22:07)
[2017-08-10] MEDS: PANTOPRAZOLE SOD 20 MG DELAYED RELEASE TAB PO SCH (09:10)
[2017-08-10] MEDS: risperiDONE 1 MG TAB PO SCH ×2 (09:10→22:06)
[2017-08-10] MEDS: hydrOXYzine PAMOATE 25 MG CAP PO SCH ×2 (09:10→22:06)
[2017-08-10] MEDS: ENOXAPARIN SODIUM 40 MG/0.4 ML SYRINGE SQ SCH (09:10)
[2017-08-10] MEDS: LEVOFLOXACIN 750 MG TAB PO SCH (09:11)
[2017-08-10] MEDS: NICOTINE 21 MG/24 HR PATCH T-DERMAL SCH (09:13)
[2017-08-10] MEDS: SODIUM CHLORIDE 0.9% FLUSH 10 ML FLUSH IV FLUSH SCH ×2 (09:14→22:07)
[2017-08-10] MEDS: BUDESONIDE-FORMOTEROL 160/4.5 MCG INHALER INH SCH ×2 (09:14→22:05)
[2017-08-10 09:27] LABS: BICARBONATE 27.6 MEQ/L (21.0-32.0); POTASSIUM 3.7 MEQ/L (3.5-5.1)
[2017-08-10] MEDS ORDERED: PNEUMOCOCCAL POLYVALENT INJ 25 MCG/0.5 ML SYR IM ONE (10:00)
[2017-08-10] MEDS ORDERED: INFLUENZA VIRUS VACCINE (QUADRIVALENT) 0.5 ML SYR IM ONE (10:00)
--- NOTE | 2017-08-10 15:58 | ECHRPT ---
Indication: Heart failure, unspecified CONCLUSIONS The left ventricular systolic function is low normal with an estimated ejection fraction in the rang e of 50- 55%. Wall thickness is normal. Normal left ventricular size. There is mild tricuspid valve regurgitation. The estimated pulmonary arterial pressure is 33 mmHg. BP: 128 / 58 HR: 87 Rhythm: Sinus MEASUREMENTS (Male / Female) Normal Values Technical Quality:Fair 2D ECHO LV Diastolic Diameter PLAX 4.2 cm 4.2 - 5.9 / 3.9 - 5.3 cm LV Systolic Diameter PLAX 3.2 cm IVS Diastolic Thickness 0.8 cm 0.6 - 1.0 / 0.6 - 0.9 cm LVPW Diastolic Thickness 0.9 cm 0.6 - 1.0 / 0.6 - 0.9 cm LV Relative Wall Thickness 0.4 LVOT Diameter 1.8 cm M-MODE Aortic Root Diameter MM 2.6 cm LA Systolic Diameter MM 2.9 cm LA Ao Ratio MM 1.1 AV Cusp Separation MM 1.7 cm DOPPLER AV Peak Velocity 145.0 cm/s AV Peak Gradient 8.4 mmHg LVOT Peak Velocity 113.0 cm/s LVOT Peak Gradient 5.1 mmHg AV Area Cont Eq pk 2.0 cm Mitral E Point Velocity 97.7 cm/s Mitral A Point Velocity 91.3 cm/s Mitral E to A Ratio 1.1 LV E' Lateral Velocity 7.4 cm/s Mitral E to LV E' Lateral Ratio 13.2 LV E' Septal Velocity 6.1 cm/s Mitral E to LV E' Septal Ratio 15.9 TR Peak Velocity 240.0 cm/s TR Peak Gradient 23.0 mmHg Right Atrial Pressure 10.0 mmHg Pulmonary Artery Systolic Pressu 33.0 mmHg Right Ventricular Systolic Press 33.0 mmHg PV Peak Velocity 92.3 cm/s PV Peak Gradient 3.4 mmHg FINDINGS LEFT VENTRICLE The left ventricular systolic function is low normal with an estimated ejection fraction in the rang e of 50- 55%. Wall thickness is normal. Normal left ventricular size. RIGHT VENTRICLE Normal right ventricular size and systolic function. LEFT ATRIUM The left atrial size is normal. RIGHT ATRIUM The right atrial size is normal. ATRIAL SEPTUM Normal atrial septal thickness without atrial level shunting by limited color doppler interrogation. AORTA The aortic root and proximal ascending aorta are normal in size on limited imaging. MITRAL VALVE Structurally normal mitral valve. No mitral valve stenosis or regurgitation. AORTIC VALVE Trileaflet aortic valve. No aortic valve stenosis or regurgitation. TRICUSPID VALVE There is mild tricuspid valve regurgitation. The estimated pulmonary arterial pressure is 33 mmHg. PULMONARY VALVE No pulmonary valve regurgitation or stenosis. VESSELS The inferior vena cava is normal in size. PERICARDIUM No pericardial effusion. Florina Wallace MD, FACC (Electronically Signed) Final Date:10 August 2017 15:57
--- NOTE | 2017-08-10 16:40 | MB ---
cc: LALITACODEY FRANCO DATE OF CONSULTATION 08/10/[address] Medrano REASON FOR CONSULTATION Pneumonia. HISTORY OF PRESENT ILLNESS The patient is a 67-year-old female who lives in an assisted living facility, has a long history of smoking, continues to smoke one pack of cigarettes. She also has COPD and uses nebulizer treatment. She came to the hospital with a four-day history of cold. She has cough and congestion, did not have any fever or chills. No night sweats. No chest pain. No nausea or vomiting. She was evaluated in the hospital. Her CBC showed WBC count of 11.7, hemoglobin 10.3, hematocrit 31.3, MCHC 32, platelet count 256. Sodium 140, potassium 3.7, chloride 111, CO2 27, BUN 11. Creatinine is 0.68. She had a CTA of the chest done. It does not show any pulmonary embolism. She has a right hilar and subcarinal adenopathy and smaller sub-cm opacity, possible inflammation. Malignancy cannot be completely ruled out. PAST MEDICAL HISTORY Significant for history of COPD. Hypertension. Nicotine use. GERD. Schizophrenia. Bladder spasm. MEDICATIONS She is currently taking - 1. Lovenox 40 mg. 2. Levaquin 750 mg. 3. Nicotine patch. 4. Protonix 20 mg a day. 5. Symbicort twice a day. 6. Neurontin 300 mg at night. 7. Vistaril 25 mg twice a day. 8. Remeron 30 mg at nighttime. 9. Artane 2 mg twice a day. 10. Risperdal 4 mg q. 12-hours. 11. Prozac 20 mg a day. 12. Atrovent nebulizer treatment. ALLERGIES No known drug allergies. SOCIAL HISTORY She has a long history of smoking, continues to smoke one pack of cigarettes a day. No alcohol use. She was house homemaker. FAMILY HISTORY She is . She has three children. She lives in assisted living facility. Normally she is up around and active. Denies any weight loss. No malignancy. No DVT or pulmonary embolus. PHYSICAL EXAMINATION GENERAL: A moderately built, moderately nourished female, not in any acute distress. VITAL SIGNS: Blood pressure is 133/60, heart rate 70, respirations 18, temperature 98.9. HEENT EXAMINATION: Pupils are equal and react to light. Oral mucosa, nasal mucosa normal. NECK: Supple. JVP not raised. CHEST: Equal air entry bilateral. A few rhonchi. CV: S1 and S2 normal. ABDOMEN: Benign. EXTREMITIES: No edema. IMPRESSION 1. COPD with mild exacerbation. 2. Patchy lung infiltrate likely infectious process; however, need to follow up until complete resolution. 3. Nicotine use. 4. Schizophrenics. 5. Hypertension. PLAN 1. Discussed with the patient. We will continue present antibiotic. 2. I advised her to quit smoking. 3. Continue aerosol treatment with albuterol/Atrovent. 4. Wean her oxygen. 5. She will need a repeat CAT of the chest in about three months for followup of the lung density. Thank you Dr. Medrano for this consult. MD CECILIA Mendoza/SSB /11:24 AM /3:55 PM
--- NOTE | 2017-08-10 18:24 | HHI.PR ---
Subjective Remarks Patient seen this morning around 9 AM. Sitting up in chair. Says she is feeling a little better than on admission. Objective Vital Signs Date Time Temp Pulse Resp B/P (MAP) Pulse Ox O2 Delivery O2 Flow Rate FiO2 08/10/17 16:00 98.7 74 18 183/79 (113) 93 08/10/17 12:00 98.9 78 18 120/58 (78) 100 08/10/17 09:26 98 Nasal Cannula 3.00 08/10/17 08:00 98.9 78 18 133/60 (84) 95 08/10/17 07:32 98.6 70 20 133/60 (84) 97 08/10/17 05:26 97 Nasal Cannula 4.00 08/10/17 00:00 99.4 72 22 111/56 (74) 98 08/09/17 21:29 98 Nasal Cannula 4.00 08/09/17 20:00 98.5 75 24 133/62 (85) 99 I/O 08/09/17 08/09/17 08/09/17 08/10/17 08/10/17 08/10/17 07:00 15:00 23:00 07:00 15:00 23:00 Intake Total 3100 ml Output Total 350 ml Balance 2750 ml Intake IV Total 3100 ml Output Urine Total 350 ml # Voids 1 1 1 # Bowel Movements 1 0 Result Diagram: 08/10/17 0835 08/10/17 0835 Objective Remarks GENERAL: patient sitting up in chair. Appears comfortable. SKIN: Warm and dry. HEAD: Normocephalic. EYES: No scleral icterus. No injection or drainage. NECK: Supple, trachea midline. No JVD. CARDIOVASCULAR: Regular rate and rhythm without murmurs, gallops, or rubs. RESPIRATORY: Breath sounds equal bilaterally. No accessory muscle use. GASTROINTESTINAL: Abdomen soft, non-tender, nondistended. MUSCULOSKELETAL: No cyanosis, or edema. BACK: Nontender without obvious deformity. No CVA tenderness. A/P Assessment and Plan //Sepsis on admission //Possible atypical pneumonia = With fever, tachycardia, leukocytosis, tachypnea. Carinal adenopathy on CT, possible atypical pneumonia. = Follow-up cultures. Continue broad-spectrum antibiotics. //Hypoxic respiratory failure. //Pulmonary nodules with the possibility of malignancy on CT chest //COPD exacerbation = No evidence of PE on CT. -Add prednisone -Ipratropium, oxygen,. Improving. Pulmonology consultation.. Appreciate assistance. //Chest x-ray pulmonary venous congestion. BNP negative. CT does not show pulmonary edema. Discharge Planning to [facility] tomorrow if improved. Keagan Medrano MD Aug 10, 2017 18:24
[2017-08-10] MEDS: MIRTAZAPINE 15 MG TAB PO SCH (22:06)
[2017-08-10] MEDS: GABAPENTIN 300 MG CAP PO SCH (22:06)
[2017-08-10] MEDS: predniSONE 20 MG TAB PO SCH (22:07)
--- NOTE | 2017-08-10 23:26 | EKG ---
Date Performed: 08/09/2017 Time Performed: 13:04:07 PTAGE: 67 years EKG: Sinus rhythm NORMAL ECG PREVIOUS TRACING : 06/24/2017 09.05 Compared to the previous tracing, rate has decreased DOCTOR: Logan Munroe Interpretating Date/Time 08/10/2017 23:26:17
[2017-08-11 00:54] VITALS: BP 155/64; PULSE 93; RESP 18; TEMP 99.3; O2SAT 95
[2017-08-11] MEDS: RESP: IPRATROPIUM 0.5 MG/2.5 ML NEB NEB SCH ×2 (04:11→09:45)
[2017-08-11 05:13] VITALS: BP 147/66; PULSE 90; RESP 18; TEMP 97.8; O2SAT 96
[2017-08-11 08:00] VITALS: BP 132/64; PULSE 71; RESP 19; TEMP 97.6; O2SAT 99
[2017-08-11] MEDS: SODIUM CHLORIDE 0.9% FLUSH 10 ML FLUSH IV FLUSH SCH (09:00)
[2017-08-11] MEDS: REMOVE OLD PATCH T-DERMAL SCH (09:00)
[2017-08-11] MEDS: TRIHEXYPHENIDYL HCL 2 MG TAB PO SCH (09:02)
[2017-08-11] MEDS: LEVOFLOXACIN 750 MG TAB PO SCH (09:02)
[2017-08-11] MEDS: hydrOXYzine PAMOATE 25 MG CAP PO SCH (09:02)
[2017-08-11] MEDS: ENOXAPARIN SODIUM 40 MG/0.4 ML SYRINGE SQ SCH (09:03)
[2017-08-11] MEDS: predniSONE 20 MG TAB PO SCH (09:03)
[2017-08-11] MEDS: NICOTINE 21 MG/24 HR PATCH T-DERMAL SCH (09:03)
[2017-08-11] MEDS: risperiDONE 1 MG TAB PO SCH (09:03)
[2017-08-11] MEDS: PANTOPRAZOLE SOD 20 MG DELAYED RELEASE TAB PO SCH (09:03)
[2017-08-11] MEDS: BUDESONIDE-FORMOTEROL 160/4.5 MCG INHALER INH SCH (09:04)
[2017-08-11] MEDS ORDERED: PRED20 PO (09:39)
[2017-08-11] MEDS ORDERED: LEVA750T9 PO (09:39)
--- NOTE | 2017-08-11 09:40 | HHI.DS ---
Discharge Summary Admission Date Aug 09, 2017 at 12:05 Discharge Date: Aug 11, 2017 Admitting Diagnosis sepsis (1) Sepsis ICD Code: A41.9 - Sepsis, unspecified organism Status: Acute (2) Bronchitis ICD Code: J40 - Bronchitis, not specified as acute or chronic Status: Acute (3) Pneumonia ICD Code: J18.9 - Pneumonia, unspecified organism Status: Acute (4) Abnormal CT of the chest ICD Code: R93.8 - Abnormal findings on diagnostic imaging of other specified body structures Procedures None Brief History - From Admission History from patient, ER physician communication, and review of medical records. Patient is quite sleepy during my interview. However she would awakens to verbal stimuli. Most of the history is given by the patient herself. She states that she came to the hospital because she was having shortness of breath. She also reports of cough. Nonproductive. She does not know the temperature. She reports of nausea. Denies vomiting. Denies any chest pains/palpitations/dizziness/syncopal episodes. Denies any abdominal pain. Denies any diarrhea. Denies any urinary symptoms. denies any black or red stools or blood in her urine. Patient tells me that she lives at [facility] assisted [facility] facility. She denies being on oxygen at the assisted living facility. She gives me her sister's telephone number which is [phone]. In the emergency room, patient was given Zosyn and azithromycin. She received 3 L total of normal saline fluid bolus in ER as well. Chest x-ray reveals bilateral pulmonary edema. Patient denies any recent peripheral edema or history of CHF. No echo in chart. Patient was recently admitted to our hospital last month. She was discharged on June 28, 2017. She was admitted at that time for pneumonia. CBC/BMP: 08/10/17 0835 08/10/17 0835 Significant Findings Laboratory Tests Test 08/09/17 09:30 08/09/17 11:15 08/09/17 17:45 08/09/17 21:56 White Blood Count 18.6 TH/MM3 (4.0-11.0) Mean Corpuscular Hemoglobin 26.3 PG (27.0-34.0) Red Cell Distribution Width 18.3 % (11.6-17.2) Neutrophils (%) (Auto) 89.9 % (16.0-70.0) Lymphocytes (%) (Auto) 2.5 % (9.0-44.0) Neutrophils # (Auto) 16.7 TH/MM3 (1.8-7.7) Lymphocytes # (Auto) 0.5 TH/MM3 (1.0-4.8) Monocytes # (Auto) 1.3 TH/MM3 (0-0.9) Random Glucose 187 MG/DL (74-106) Albumin 3.3 GM/DL (3.4-5.0) Estimat Glomerular Filtration Rate 70 ML/MIN (>89) Urine Leukocyte Esterase SMALL (NEG) Urine Mucus FEW /lpf (OCC) Troponin I LESS THAN 0.02 NG/ML LESS THAN 0.02 NG/ML Test 08/10/17 08:35 White Blood Count 11.7 TH/MM3 (4.0-11.0) Red Blood Count 3.78 MIL/MM3 (4.00-5.30) Hemoglobin 10.3 GM/DL (11.6-15.3) Hematocrit 31.3 % (35.0-46.0) Red Cell Distribution Width 17.9 % (11.6-17.2) Neutrophils (%) (Auto) 80.4 % (16.0-70.0) Neutrophils # (Auto) 9.4 TH/MM3 (1.8-7.7) Random Glucose 111 MG/DL (74-106) Calcium Level 8.3 MG/DL (8.5-10.1) Chloride Level 111 MEQ/L (98-107) Anion Gap 4 MEQ/L (5-15) Estimat Glomerular Filtration Rate 87 ML/MIN (>89) Imaging Last Impressions Chest X-Ray 08/09/17 0923 Signed Impressions: Service Date/Time: July 09:34 - CONCLUSION: 1. Bibasilar interstitial prominence is nonspecific and could represent some degree of vascular congestion/mild overload. Some degree of fibrosis cannot be excluded, however. 2. No superimposed acute infiltrate or effusion Bruno Vela MD CT Angiography 08/09/17 0000 Signed Impressions: Service Date/Time: July 18:48 - CONCLUSION: 1. The study is negative for pulmonary embolism. 2. Evidence of right hilar and subcarinal adenopathy and numerous small subcentimeter opacities diffusely throughout the right lung suggests hematogenous process. Malignancy cannot be excluded. Veto Lunsford MD PE at Discharge GENERAL: This is a well-nourished, well-developed patient, tachypneic at rest, pleasant though sleepy during my interview CARDIOVASCULAR: Regular rate and rhythm without murmurs, gallops, or rubs. RESPIRATORY: bilateral upper airway congested sounds, equal air entry, mild basilar crepitations GASTROINTESTINAL: Abdomen soft, non-tender, nondistended. . No guarding. MUSCULOSKELETAL: Extremities without clubbing, cyanosis, or edema. No calf tenderness. NEUROLOGICAL: easily wakes up to verbal stimuli. Motor and sensory grossly within normal limits. Normal speech. Pt update on day of discharge Feels better. No fever or chills overnight. She is not coughing. Shortness of breath improved. No cough at this time. No abdominal pain. No nausea, vomiting, diarrhea or constipation. There is no lower extremity edema. Has a walker at home and physical therapy recommends home with home health. Patient feels comfortable to go home she will follow up with pulmonology as outpatient. She will have to repeat CT as outpatient. Failed O2 test needs O2 at home Hospital Course Dyspnea Hypoxia with O2 saturation of 85% on room air per EMS reports Fever of 101.2 by EMS, no fever since admission Pulmonary venous congestion present on chest x-ray. The patient did receive 3 L of normal saline bolus in ER. BNP 62 The patient's lung exam is mostly significant for upper airway congestion. However she is quite dyspneic at rest. CT pulmonary angiogram reviewed . Right hilar and subcarinal adenopathy with small sub cm opacity , poss inflammation. Malignancy cannot be rulled out. Repeat CTA as OP in 3 month ordered at [facility]. To follow u-p as OP with pulm. Advice quitting smoking. Serial cardiac enzymes nl and EKG no ischemic findings. Echocardiogram with normal EF Blood culture NTD Monitor for fever trends. Oxygen supplementation. Patient received Zosyn and azithromycin in ER. On Levaquin by mouth. The patient improved, discharged to the left PT. To follow-up as outpatient with PCP and consultants. CT scan as outpatient in 3 months. Failed O2 , needs O2 at home case management for DC plan Pt Condition on Discharge: Stable Discharge Disposition: [facility] Discharge Time: > 30 minutes Discharge Instructions DIET: Follow Instructions for: Heart Healthy Diet Activities you can perform: Regular-No Restrictions Follow up Referrals: PCP Follow-up - 2-3 Days Pulmonology - 2 Weeks with Lavon Lopes MD New Orders: CT THORAX W CONTRAST (CHEST) - 3 Months New Medications: Oxygen (O2) (Oxygen (O2)) Device LITER KADE.CANULA CONTINUOUS for Prevent Hypoxemia, #2 Oxygen Concentrator Portable Gaseous 2 L/min via Nasal Canula Continuous For 99 months Prednisone (Prednisone) 20 Mg Tab 20 MG PO DAILY for Shortness of Breath, #3 TAB 0 Refills Levofloxacin (Levaquin) 750 Mg Tablet 750 MG PO DAILY for infection, #5 MG Continued Medications: Acetaminophen (Tylenol) 325 Mg Tab 650 MG PO Q8HR PRN for pain, TAB 0 Refills Albuterol 18 GM Inh (Ventolin Hfa 18 GM Inh) 90 Mcg/Act Aer 2 PUFF INH Q4-6H PRN for SHORTNESS OF BREATH, #1 INHALER 0 Refills Budesonide-Formoterol Inh (Symbicort Inh) 160-4.5 Mcg/Act Aero 2 PUFF INH Q12HR, #1 INHALER 0 Refills Docusate Sodium (Dok) 100 Mg Cap #30 Famotidine (Pepcid) 20 Mg Tab 20 MG PO DAILY, #60 TAB 1 Refill Fluoxetine (Fluoxetine) 20 Mg Capsule 20 MG PO DAILY PRN for AGITATION AND/OR HALLUCINATION, #30 CAP 0 Refills Gabapentin (Gabapentin) 300 Mg Cap 300 MG PO HS, #30 CAP 0 Refills Hydroxyzine Pamoate (Vistaril) 25 Mg Cap 25 MG PO BID, CAP 0 Refills Meloxicam (Meloxicam) 7.5 Mg Tab 7.5 MG PO DAILY for Arthritis Pain, TAB 0 Refills Mirabegron (Myrbetriq) 25 Mg Tab 25 MG .ROUTE DAILY PRN for BLADDER SPASM, #30 TAB 0 Refills Mirtazapine (Mirtazapine) 15 Mg Tab 30 MG PO HS for Depression Control, #30 TAB 0 Refills Nicotine Patch (Nicotine Patch) 21 Mg/24 Hr Patch 21 MG T-DERMAL DAILY for Smoking Cessation, #30 PATCH 0 Refills Pantoprazole (Protonix) 20 Mg Tab 20 MG PO DAILY for Reflux, #30 TAB 0 Refills Risperidone (Risperidone) 4 Mg Tab 4 MG PO Q12HR, #60 TAB 0 Refills Trihexyphenidyl (Trihexyphenidyl) 2 Mg Tab 2 MG PO BID for Parkinson Disease Mgmt, #60 TAB 0 Refills Bea Han MD Aug 11, 2017 09:40
[2017-08-11 09:45] VITALS: O2SAT 94
--- NOTE | 2017-08-11 10:17 | HHI.FF ---
Face to Face Verification Diagnosis: (1) Sepsis (2) Bronchitis (3) Pneumonia (4) Abnormal CT of the chest Physical Therapy Order: Evaluate and Treat Home Health Nursing Order: Medical education Signs/symptoms of disease process Medication education-adverse effect Nursing assessment with vital signs I have seen patient Marycarmen Breaux on 08/11/17. My clinical findings support the need for the requested home health care services because: Ltd mobility - disease progression Patient has SOB I certify that my clinical findings support that this patient is homebound because: Post-op weakness Hx COPD- exertion dyspnea/weakness Bea Han MD Aug 11, 2017 10:17
[2017-08-11 12:00] VITALS: BP 121/64; PULSE 78; RESP 19; TEMP 97.4; O2SAT 99
[2017-08-11] MEDS ORDERED: OXYGENDME NAS.CANULA (16:23)
== END 2017-08-11 15:18 | DRG 871 ==
LOC: NEPE 09:05 → NEDA 12:05 → N05B 14:29
PROVIDERS: ADMIT Hospitalist; ATTEND Hospitalist
DX: A41.9 Sepsis, unspecified organism (principal); J18.9 Pneumonia, unspecified organism; J96.91 Respiratory failure, unspecified with hypoxia; I69.354 Hemiplegia and hemiparesis following cerebral infarction affecting left non-dominant side; J44.0 Chronic obstructive pulmonary disease with (acute) lower respiratory infection; J44.1 Chronic obstructive pulmonary disease with (acute) exacerbation; I10 Essential (primary) hypertension; K21.9 Gastro-esophageal reflux disease without esophagitis; R59.9 Enlarged lymph nodes, unspecified; G20 Parkinson's disease; F20.9 Schizophrenia, unspecified; F17.210 Nicotine dependence, cigarettes, uncomplicated; F12.90 Cannabis use, unspecified, uncomplicated; F14.90 Cocaine use, unspecified, uncomplicated; Z23 Encounter for immunization
CPT/HCPCS: 71010; 71275; 80048; 80053; 81001; 82550; 82948; 83605; 83880; 84484; 85025; 87040; 90732; 93005; 93306; 94150; 94620; 94640; 96365; 96375; J0456; J1650; J1815; J2543; J7030; J7050; J7512; J7644; P9612; Q0177; Q9967

== ENCOUNTER 2018-01-10 08:55 | Inpatient (IN) | payer MEDICARE, MEDICAID ==
[~2018-01-10] VITALS: Ht 157.5 cm; Wt 74.4 kg
[~2018-01-10 08:55] MED LIST changes: -AZIT250T3 PO; +GABA300C5 PO; -LEVA500T33 PO; +LEVA750T9 PO; +NICO21DI2 T-DERMAL; +OXYGENDME NAS.CANULA; +PRED20 PO; -PRED50 PO; +SYMB160A INH
[2018-01-10 09:20] VITALS: PULSE 85; RESP 20; O2SAT 96
[2018-01-10 09:24] VITALS: BP 136/64; PULSE 83; RESP 20; O2SAT 96
--- NOTE | 2018-01-10 09:37 | PD ---
HPI Chief Complaint: Respiratory Symptoms Time Seen by Provider: 09:31 Travel History International Travel<30 days: No Contact w/Intl Traveler<30days: No Traveled to known affect area: No History of Present Illness HPI 67-year-old female patient with history of COPD, multiple medical issues, presents to the ER from [facility] because she is complaining of shortness of breath this morning, poor historian, coughing, but not able to give me much further history. She denies any chest pains or other issues. Modifying Factors: None Associated Signs & Symptoms: Shortness of breath Risk Factors: COPD history PFSH Past Medical History Arthritis: No Autoimmune Disease: No Anxiety: No Depression: No Heart Rhythm Problems: No Cancer: No Cardiovascular Problems: Yes High Cholesterol: Yes Chemotherapy: No Chest Pain: No Congestive Heart Failure: No COPD: Yes Cerebrovascular Accident: No Diabetes: Yes Diminished Hearing: No Endocrine: No GERD: Yes Genitourinary: No Hiatal Hernia: No Immune Disorder: No Kidney Stones: No Musculoskeletal: No Neurologic: No Psychiatric: Yes Reproductive: No Respiratory: Yes Immunizations Current: No Migraines: No Radiation Therapy: No Renal Failure: No Schizophrenia: Yes Seizures: No Sickle Cell Disease: No Sleep Apnea: No Thyroid Disease: No Ulcer: No Menopausal: Yes Past Surgical History Abdominal Surgery: Yes (gallstones) AICD: No Arteriovenous Shunt: No Cardiac Surgery: No Cholecystectomy: Yes (GALL STONES REMOVED) Endocrine Surgery: No Eye Surgery: Yes Genitourinary Surgery: No Gynecologic Surgery: No Hysterectomy: Yes Insulin Pump: No Joint Replacement: No Oral Surgery: Yes Pacemaker: No Thoracic Surgery: No Other Surgery: Yes Social History Alcohol Use: No Tobacco Use: Yes (pack a day ) Substance Use: Yes (marijuana, cocaine) Allergies-Medications (Allergen,Severity, Reaction): Coded Allergies: No Known Allergies (Verified Allergy, Unknown, 08/09/17) Reported Meds & Prescriptions Reported Meds & Active Scripts Active Ventolin Hfa 18 GM Inh (Albuterol Sulfate) 90 Mcg/Act Aer 2 Puff INH Q4-6H PRN Reported Erivedge (Vismodegib) 150 Mg Cap 1 Cap PO DAILY Baclofen 10 Mg Tab 10 Mg PO BID Senna-Tabs (Sennosides) 8.6 Mg Tab 8.6 Mg PO DAILY Lisinopril 10 Mg Tab 10 Mg PO DAILY Symbicort Inh (Budesonide/Formoterol Fumarate) 160-4.5 Mcg/Act Aero 2 Puff INH Q12HR Gabapentin 300 Mg Cap 300 Mg PO HS Risperidone 4 Mg Tab 4 Mg PO Q12HR Mirtazapine 15 Mg Tab 30 Mg PO HS Meloxicam 7.5 Mg Tab 7.5 Mg PO DAILY Trihexyphenidyl (Trihexyphenidyl HCl) 2 Mg Tab 2 Mg PO BID Protonix (Pantoprazole Sodium) 20 Mg Tab 20 Mg PO DAILY Myrbetriq (Mirabegron) 25 Mg Tab 25 Mg .ROUTE DAILY PRN Vistaril (Hydroxyzine Pamoate) 25 Mg Cap 25 Mg PO BID Fluoxetine (Fluoxetine HCl) 20 Mg Capsule 20 Mg PO DAILY PRN Pepcid (Famotidine) 20 Mg Tab 20 Mg PO DAILY Review of Systems ROS Limitations: Poor Historian Except as stated in HPI: all other systems reviewed are Neg Physical Exam Narrative GENERAL: Well-developed elderly female patient currently in mild distress. Awake and oriented 3. SKIN: Focused skin assessment warm/dry. HEAD: Atraumatic. Normocephalic. EYES: Pupils equal and round. No scleral icterus. No injection or drainage. ENT: No nasal bleeding or discharge. Mucous membranes pink and moist. NECK: Trachea midline. No JVD. CARDIOVASCULAR: Regular rate and rhythm. No murmur appreciated. RESPIRATORY: Mild accessory muscle use. Decreased throughout. Breath sounds equal bilaterally. GASTROINTESTINAL: Abdomen soft, non-tender, nondistended. Hepatic and splenic margins not palpable. MUSCULOSKELETAL: No obvious deformities. No clubbing. No cyanosis. No edema. NEUROLOGICAL: Awake and alert. No obvious cranial nerve deficits. Motor grossly within normal limits. Normal speech. PSYCHIATRIC: Appropriate mood and flat affect; insight and judgment poor. Data Data Last Documented VS Vital Signs Date Time Temp Pulse Resp B/P (MAP) Pulse Ox O2 Delivery O2 Flow Rate FiO2 01/10/18 09:41 Nasal Cannula 3.00 01/10/18 09:24 83 20 136/64 (88) 96 Orders Orders Complete Blood Count With Diff (01/10/18 09:31) Comprehensive Metabolic Panel (01/10/18 09:31) B-Type Natriuretic Peptide (01/10/18 09:31) Act Partial Throm Time (Ptt) (01/10/18 09:31) Prothrombin Time / Inr (Pt) (01/10/18 09:31) Ckmb (Isoenzyme) Profile (01/10/18 09:31) Troponin I (01/10/18 09:31) Blood Culture (01/10/18 09:31) Iv Access Insert/Monitor (01/10/18 09:31) Electrocardiogram (01/10/18 09:31) Ecg Monitoring (01/10/18:31) Oximetry (01/10/18:31) Oxygen Administration (01/10/18 09:31) Chest, Single Ap (01/10/18 09:31) Sodium Chloride 0.9% Flush (Ns Flush) (01/10/18 09:45) Albuterol-Ipratropium Neb (Duoneb Neb) (01/10/18 09:45) CKMB (01/10/18 09:40) CKMB% (01/10/18 09:40) Ct Thorax/ Chest Wo Iv Contras (01/10/18 10:31) Ceftriaxone Inj (Rocephin Inj) (01/10/18 11:12) Azithromycin Inj (Zithromax Inj) (01/10/18 11:12) Labs Laboratory Tests Test 01/10/18 09:40 White Blood Count 9.4 TH/MM3 Red Blood Count 4.13 MIL/MM3 Hemoglobin 10.9 GM/DL Hematocrit 33.9 % Mean Corpuscular Volume 82.1 FL Mean Corpuscular Hemoglobin 26.5 PG Mean Corpuscular Hemoglobin Concent 32.2 % Red Cell Distribution Width 16.0 % Platelet Count 298 TH/MM3 Mean Platelet Volume 7.6 FL Neutrophils (%) (Auto) 73.3 % Lymphocytes (%) (Auto) 12.9 % Monocytes (%) (Auto) 8.8 % Eosinophils (%) (Auto) 4.3 % Basophils (%) (Auto) 0.7 % Neutrophils # (Auto) 6.9 TH/MM3 Lymphocytes # (Auto) 1.2 TH/MM3 Monocytes # (Auto) 0.8 TH/MM3 Eosinophils # (Auto) 0.4 TH/MM3 Basophils # (Auto) 0.1 TH/MM3 CBC Comment DIFF FINAL Differential Comment Prothrombin Time 10.4 SEC Prothromb Time International Ratio 1.0 RATIO Activated Partial Thromboplast Time 26.4 SEC Blood Urea Nitrogen 24 MG/DL Creatinine 1.22 MG/DL Random Glucose 172 MG/DL Total Protein 7.7 GM/DL Albumin 3.1 GM/DL Calcium Level 8.9 MG/DL Alkaline Phosphatase 88 U/L Aspartate Amino Transf (AST/SGOT) 20 U/L Alanine Aminotransferase (ALT/SGPT) 21 U/L Total Bilirubin 0.2 MG/DL Sodium Level 141 MEQ/L Potassium Level 5.2 MEQ/L Chloride Level 106 MEQ/L Carbon Dioxide Level 28.0 MEQ/L Anion Gap 7 MEQ/L Estimat Glomerular Filtration Rate 44 ML/MIN Total Creatine Kinase 137 U/L Creatine Kinase MB 1.8 NG/ML Troponin I LESS THAN 0.02 NG/ML B-Type Natriuretic Peptide 33 PG/ML MDM Medical Decision Making Medical Screen Exam Complete: Yes Emergency Medical Condition: Yes Medical Record Reviewed: Yes Interpretation(s) EKG shows NSR, no ST elevation or depression, and no arrhythmias. No significant T-wave inversions. Laboratory Tests Test 01/10/18 09:40 Hemoglobin 10.9 GM/DL (11.6-15.3) Hematocrit 33.9 % (35.0-46.0) Mean Corpuscular Hemoglobin 26.5 PG (27.0-34.0) Neutrophils (%) (Auto) 73.3 % (16.0-70.0) Monocytes (%) (Auto) 8.8 % (0.0-8.0) Eosinophils (%) (Auto) 4.3 % (0.0-4.0) Blood Urea Nitrogen 24 MG/DL (7-18) Creatinine 1.22 MG/DL (0.50-1.00) Random Glucose 172 MG/DL (74-106) Albumin 3.1 GM/DL (3.4-5.0) Potassium Level 5.2 MEQ/L (3.5-5.1) Estimat Glomerular Filtration Rate 44 ML/MIN (>89) Troponin I LESS THAN 0.02 NG/ML Last [address] 01/10/18 1031 Signed Impressions: CONCLUSION: 1. Patchy subsegmental airspace disease in the lungs most characteristic of br onchopneumonia. There is some distal airway disease but overall this is improve d on the right since July 2017. Mild right hilar adenopathy is relatively s table. Chest X-Ray 01/10/18 0931 Signed Impressions: CONCLUSION: New right lung base opacity; further evaluation with CT should be considered. Otherwise stable chest. Differential Diagnosis COPD exacerbation versus pneumonia versus dehydration versus electrolyte abnormalities Narrative Course Chest x-ray and CAT scan shows right-sided infiltrates concerning for underlying pneumonia. Patient was initially given a nebulizer treatment with improvement in breathing. Lab work was fairly unremarkable. Patient is initiated on IV antibiotics after cultures are drawn. Planning to admit for further treatment of pneumonia. Case has been discussed with Dr. Adrian for admission. Diagnosis Primary Impression: Pneumonia Admitting Information Admitting Physician Requests: Admit Thony Dodge MD January 10, 2018 09:37
[2018-01-10] MEDS ORDERED: SODIUM CHLORIDE 0.9% FLUSH 10 ML FLUSH IVF PRN (09:45)
[2018-01-10] MEDS: RESP: ALBUTEROL 2.5 MG/IPRATROPIUM 0.5 MG NEB (SCH) INH (09:59)
--- NOTE | 2018-01-10 10:03 | RADRPT ---
EXAM DATE: 01/10/2018 9:44 AM EDT AGE/SEX: 67 years / Female INDICATIONS: Short of breath CLINICAL DATA: This is the patient's initial encounter. Patient reports that signs and symptoms have been present for 2 weeks and indicates a pain score of 0/10. MEDICAL/SURGICAL HISTORY: None. None. [place] [facility] [place] . FINDINGS: A small opacity has developed within the right lung base just above the dome of the diaphragm. Lungs are otherwise clear. Heart and mediastinal structures are stable. Osseous structures remain intact. CONCLUSION: New right lung base opacity; further evaluation with CT should be considered. Otherwise stable chest. Electronically signed by: Dickson Newell MD 01/10/2018 10:02 AM EDT
[2018-01-10 10:06] LABS: AUTOMATED NEUTROPHIL # 6.9 TH/MM3 (1.8-7.7); BASOPHIL # 0.1 TH/MM3 (0-0.2); BASOPHIL % 0.7 % (0.0-2.0); EOSINOPHIL # 0.4 TH/MM3 (0-0.4); EOSINOPHIL % 4.3 % (0.0-4.0); HEMATOCRIT 33.9 % (35.0-46.0); HEMOGLOBIN 10.9 GM/DL (11.6-15.3); LYMPH % 12.9 % (9.0-44.0); LYMPHOCYTE # 1.2 TH/MM3 (1.0-4.8); MEAN CELL VOLUME 82.1 FL (80.0-100.0); MEAN CORPUSCULAR HEMOGLOBIN 26.5 PG (27.0-34.0); MEAN CORPUSCULAR HGB CONC 32.2 % (32.0-36.0); MEAN PLATELET VOLUME 7.6 FL (7.0-11.0); MONO % 8.8 % (0.0-8.0); MONOCYTE # 0.8 TH/MM3 (0-0.9); NEUT % 73.3 % (16.0-70.0); PLATELET COUNT 298 TH/MM3 (150-450); RED BLOOD COUNT 4.13 MIL/MM3 (4.00-5.30); WHITE BLOOD COUNT 9.4 TH/MM3 (4.0-11.0)
[2018-01-10 10:16] LABS: PROTHROMBIN TIME - PATIENT 10.4 SEC (9.8-11.6)
[2018-01-10 10:23] LABS: ALBUMIN 3.1 GM/DL (3.4-5.0); ALT (GPT) 21 U/L (10-53); AST (GOT) 20 U/L (15-37); BLOOD UREA NITROGEN 24 MG/DL (7-18); CALCIUM 8.9 MG/DL (8.5-10.1); CHLORIDE 106 MEQ/L (98-107); CREATININE 1.22 MG/DL (0.50-1.00); GLOMERULAR FILTRATION RATE 44 ML/MIN (>89); GLUCOSE,RANDOM 172 MG/DL (74-106); SODIUM (NA) 141 MEQ/L (136-145)
[2018-01-10 10:26] LABS: ALKALINE PHOSPHATASE 88 U/L (45-117); TOTAL BILIRUBIN ADULT 0.2 MG/DL (0.2-1.0); TOTAL PROTEIN 7.7 GM/DL (6.4-8.2); TROPONIN I LESS THAN 0.02 NG/ML (0.02-0.05)
--- NOTE | 2018-01-10 11:10 | RADRPT ---
EXAM DATE: 01/10/2018 10:58 AM EDT AGE/SEX: 67 years / Female INDICATIONS: Dyspnea CLINICAL DATA: This is the patient's initial encounter. Patient reports that signs and symptoms have been present for 1 day and indicates a pain score of 0/10. MEDICAL/SURGICAL HISTORY: Cardiovascular disease. Chronic obstructive pulmonary disease. Diabetes . Hysterectomy. RADIATION DOSE: 12.21 CTDI (mGy) COMPARISON: [facility] – [place] PULMONARY ANGIOGRAM, 08/09/2017. . TECHNIQUE: Multiple contiguous axial images were obtained through the chest without contrast. Image s were obtained in suspended respiration using multiple row detector helical technique. Using automa javier exposure control and adjustment of the mA and/or kV according to patient size, radiation dose was kept as low as reasonably achievable to obtain optimal diagnostic quality images. FINDINGS: Comparison is July 2017. Previous distal airway disease is slightly improved. There is some new s ubsegmental airspace disease in the anterior segment of the right upper lobe and there is patchy airs pace disease in both lower lobes most characteristic of mild bronchopneumonia. There is no pleural or pericardial effusion. Mild right hilar adenopathy similar to July 2017. Mi ld coronary calcifications. No acute findings in the upper abdomen. CONCLUSION: 1. Patchy subsegmental airspace disease in the lungs most characteristic of bronchopneumonia. There is some distal airway disease but overall this is improved on the right since July 2017. Mild rig ht hilar adenopathy is relatively stable. Electronically signed by: Abhay Carter MD 01/10/2018 11:08 AM EDT
[2018-01-10] MEDS ORDERED: AZITHROMYCIN INJ 500 MG in SODIUM CHLOR 0.9% 250 ML INJ 250 ML IV STA (11:12)
[2018-01-10] MEDS ORDERED: cefTRIAXone INJ 2,000 MG in SODIUM CHLORIDE 0.9% INJ 100 ML IV STA (11:12)
[2018-01-10] MEDS ORDERED: VISM150C PO (11:20)
[2018-01-10] MEDS ORDERED: BACL10TA PO (11:20)
[2018-01-10] MEDS ORDERED: LISI10TA3 PO (11:20)
[2018-01-10] MEDS ORDERED: SENN8.6T36 PO (11:20)
[2018-01-10 12:22] VITALS: BP 100/52; PULSE 79; RESP 18; O2SAT 98
[2018-01-10] MEDS ORDERED: SODIUM CHLOR 0.9% 1000 ML INJ 1,000 ML IV ONE (13:30)
--- NOTE | 2018-01-10 13:36 | HHI.HP ---
[facility] Unknown Admission Diagnosis Pneumonia Diagnoses: Chief Complaint: Feeling weak Travel History International Travel<30 Days: No Contact w/Intl Traveler <30 Da: No Traveled to Known Affected Are: No History of Present Illness 67-year-old white female being admitted for pneumonia. Patient is a poor historian, history is obtained from both patient and emergency room records. Patient was in her usual state of health until about 4 days ago when she began experiencing intermittent spells of lightheadedness as well as generalized weakness. Her symptoms progressed and ultimately she called 911 from her [place] to come to the emergency department. She told emergency room physician that she has been feeling short of breath, but she denies explicitly being short of breath to me. Patient denies any fevers or chills but does endorse some nausea. Denies vomiting and diarrhea. Denies having any chest pain. Reports being compliant with all of her medications as prescribed. Patient frequently has to be redirected on her questioning, when asked where she is she says her [place]. When asked what month it is she responds by saying she is here for dizzy spells. Her medication regimen indicates antipsychotic meds. In the emergency department she had a chest x-ray and a CT done both of which I independently reviewed and see if possible mild left upper lobe infiltrate. Blood work is remarkable for mild renal insufficiency acutely. Patient was given Rocephin and azithromycin as well as a DuoNeb treatment emergency department. Review of Systems Except as stated in HPI: all other systems reviewed are Neg Past Family Social History Past Medical History COPD muscle spasms Hypertension CVA Schizophrenia GERD Bladder spasms Allergies: Coded Allergies: No Known Allergies (Verified Allergy, Unknown, 08/09/17) Social History smoking hx Physical Exam Vital Signs Vital Signs Date Time Temp Pulse Resp B/P (MAP) Pulse Ox O2 Delivery O2 Flow Rate FiO2 01/10/18 12:22 79 18 100/52 (68) 98 Nasal Cannula 3.00 01/10/18 09:41 Nasal Cannula 3.00 01/10/18 09:37 Nasal Cannula 2.00 01/10/18 09:24 83 20 136/64 (88) 96 01/10/18 09:20 85 20 96 Physical Exam VS: afebrile GENERAL: Patient sitting up in bed, awake, alert, no acute distress SKIN: Warm and dry. EYES: No scleral icterus. No injection or drainage. ENT: No nasal bleeding or discharge. Mucous membranes pink and moist. CARDIOVASCULAR: Regular rate and rhythm. no murmurs RESPIRATORY: Very faint mild focal crackles heard in the left lung field, clear lung field on the right, unlabored breathing GASTROINTESTINAL: Abdomen soft, non-tender, nondistended. Hepatic and splenic margins not palpable. Extremities: No clubbing, cyanosis, or edema. No obvious deformities. MUSCULOSKELETAL: grossly intact ROM with 5/5 strength in upper and lower extremities proximally; adequate muscle bulk and tone for age and habitus NEUROLOGICAL: Awake and alert. No obvious cranial nerve deficits. No facial droop nor slurred speech noted. PSYCHIATRIC: Appropriate mood and affect, however her insight seems quite compromised as she responds to questions inappropriately and needs substantial coaching to ultimately arrived to valid answers. Laboratory Laboratory Tests Test 01/10/18 09:40 White Blood Count 9.4 Red Blood Count 4.13 Hemoglobin 10.9 Hematocrit 33.9 Mean Corpuscular Volume 82.1 Mean Corpuscular Hemoglobin 26.5 Mean Corpuscular Hemoglobin Concent 32.2 Red Cell Distribution Width 16.0 Platelet Count 298 Mean Platelet Volume 7.6 Neutrophils (%) (Auto) 73.3 Lymphocytes (%) (Auto) 12.9 Monocytes (%) (Auto) 8.8 Eosinophils (%) (Auto) 4.3 Basophils (%) (Auto) 0.7 Neutrophils # (Auto) 6.9 Lymphocytes # (Auto) 1.2 Monocytes # (Auto) 0.8 Eosinophils # (Auto) 0.4 Basophils # (Auto) 0.1 CBC Comment DIFF FINAL Differential Comment Prothrombin Time 10.4 Prothromb Time International Ratio 1.0 Activated Partial Thromboplast Time 26.4 Blood Urea Nitrogen 24 Creatinine 1.22 Random Glucose 172 Total Protein 7.7 Albumin 3.1 Calcium Level 8.9 Alkaline Phosphatase 88 Aspartate Amino Transf (AST/SGOT) 20 Alanine Aminotransferase (ALT/SGPT) 21 Total Bilirubin 0.2 Sodium Level 141 Potassium Level 5.2 Chloride Level 106 Carbon Dioxide Level 28.0 Anion Gap 7 Estimat Glomerular Filtration Rate 44 Total Creatine Kinase 137 Creatine Kinase MB 1.8 Troponin I LESS THAN 0.02 B-Type Natriuretic Peptide 33 Date/Time Source Procedure Growth Status 01/10/18 09:40 Blood Peripheral Aerobic Blood Culture Pending Received 01/10/18 09:40 Blood Peripheral Anaerobic Blood Culture Pending Received Result Diagram: 01/10/18 0940 01/10/18 0940 Imaging Last Impressions Chest CT 01/10/18 1031 Signed Impressions: CONCLUSION: 1. Patchy subsegmental airspace disease in the lungs most characteristic of br onchopneumonia. There is some distal airway disease but overall this is improve d on the right since July 2017. Mild right hilar adenopathy is relatively s table. Chest X-Ray 01/10/18 0931 Signed Impressions: CONCLUSION: New right lung base opacity; further evaluation with CT should be considered. Otherwise stable chest. Caprini VTE Risk Assessment Caprini VTE Risk Assessment: Mod/High Risk (score >= 2) Caprini Risk Assessment Model Point Value = 1 Point Value = 2 Point Value = 3 Point Value = 5 Age 41-60 Minor surgery BMI > 25 kg/m2 Swollen legs Varicose veins or History of unexplained or recurrent spontaneous Oral contraceptives or hormone replacement Sepsis (< 1 month) Serious lung disease, including pneumonia (< 1 month) Abnormal pulmonary function Acute myocardial infarction Congestive heart failure (< 1 month) History of inflammatory bowel disease Medical patient at bed rest Age 61-74 Arthroscopic surgery Major open surgery (> 45 min) Laparoscopic surgery (> 45 min) Malignancy Confined to bed (> 72 hours) Immobilizing plaster cast Central venous access Age >= 75 History of VTE Family history of VTE Factor V Leiden Prothrombin [id number] Lupus anticoagulant Anticardiolipin antibodies Elevated serum homocysteine Heparin-induced thrombocytopenia Other congenital or acquired thrombophilia Stroke (< 1 month) Elective arthroplasty Hip, pelvis, or leg fracture Acute spinal cord injury (< 1 month) Prophylaxis Regimen Total Risk Factor Score Risk Level Prophylaxis Regimen 0-1 Low Early ambulation 2 Moderate Order ONE of the following: *Sequential Compression Device (SCD) *Heparin 5000 units SQ BID 3-4 Higher Order ONE of the following medications: *Heparin 5000 units SQ TID *Enoxaparin/Lovenox 40 mg SQ daily (WT < 150 kg, CrCl > 30 mL/min) *Enoxaparin/Lovenox 30 mg SQ daily (WT < 150 kg, CrCl > 10-29 mL/min) *Enoxaparin/Lovenox 30 mg SQ BID (WT < 150 kg, CrCl > 30 mL/min) AND/OR *Sequential Compression Device (SCD) 5 or more Highest Order ONE of the following medications: *Heparin 5000 units SQ TID (Preferred with Epidurals) *Enoxaparin/Lovenox 40 mg SQ daily (WT < 150 kg, CrCl > 30 mL/min) *Enoxaparin/Lovenox 30 mg SQ daily (WT < 150 kg, CrCl > 10-29 mL/min) *Enoxaparin/Lovenox 30 mg SQ BID (WT < 150 kg, CrCl > 30 mL/min) AND *Sequential Compression Device (SCD) Assessment and Plan Assessment and Plan Pneumonia Community-acquired versus healthcare acquired -We will initially cover with Rocephin and azithromycin, -blood cultures ordered but pt not septic -saturating well (95%) on RA Mild acute renal insufficiency -IV fluids Presyncope -EKG ordered -place on telemetry, will order Holter monitor upon discharge COPD -stable, no acute exacerbation clinically, continue home Pulmicort Resume all home antipsychotic medications Anticipate dc in AM pending clinical improvement and securing safe destination for discharge Eduardo Jansen MD January 10, 2018 13:36
[2018-01-10] MEDS ORDERED: NON-FORMULARY DRUG (Mirabegron (Myrbetriq) 25 MG) PRN (13:45)
[2018-01-10 16:39] VITALS: BP 121/58; PULSE 71; RESP 18; TEMP 98.4; O2SAT 98
[2018-01-10] MEDS ORDERED: TOLTERODINE TARTRATE 2 MG CAP LA PO PRN (16:45)
[2018-01-10 20:15] VITALS: BP 132/62; PULSE 86; RESP 19; TEMP 98.3; O2SAT 93
[2018-01-10] MEDS: MIRTAZAPINE 15 MG TAB PO SCH (21:28)
[2018-01-10] MEDS: BACLOFEN 10 MG TAB PO SCH (21:28)
[2018-01-10] MEDS: TRIHEXYPHENIDYL HCL 2 MG TAB PO SCH (21:28)
[2018-01-10] MEDS: risperiDONE 1 MG TAB PO SCH (21:28)
[2018-01-10] MEDS: BUDESONIDE-FORMOTEROL 160/4.5 MCG INHALER INH SCH (21:28)
[2018-01-10] MEDS: ENOXAPARIN SODIUM 30 MG/0.3 ML SYRINGE SQ SCH (21:29)
[2018-01-10] MEDS: GABAPENTIN 300 MG CAP PO SCH (21:36)
[2018-01-11] VITALS (8 sets, daily range): BP systolic 99–146; BP diastolic 54–68; PULSE 64–105; RESP 18–20; TEMP 97.9–98.3; O2SAT 92–99
[2018-01-11 05:28] LABS: BICARBONATE 26.9 MEQ/L (21.0-32.0); CALCIUM 8.8 MG/DL (8.5-10.1); CREATININE 0.95 MG/DL (0.50-1.00)
--- NOTE | 2018-01-11 07:23 | EKG ---
Date Performed: 01/10/2018 Time Performed: 09:48:31 PTAGE: 67 years EKG: Sinus rhythm LOW QRS VOLTAGE IN PRECORDIAL LEADS BORDERLINE ECG PREVIOUS TRACING : 08/09/2017 13.04 DOCTOR: Vance Miller Interpretating Date/Time 01/11/2018 07:20:16
[2018-01-11] MEDS ORDERED: [UNRECOGNIZED DRUG - OTHER] PO SCH (09:00)
[2018-01-11] MEDS: BUDESONIDE-FORMOTEROL 160/4.5 MCG INHALER INH SCH ×2 (09:00→20:20)
[2018-01-11] MEDS ORDERED: [UNRECOGNIZED DRUG - OTHER] PO SCH (09:00)
[2018-01-11] MEDS: TRIHEXYPHENIDYL HCL 2 MG TAB PO SCH ×2 (09:12→20:20)
[2018-01-11] MEDS: SENNOSIDES 8.6 MG TAB PO SCH (09:12)
[2018-01-11] MEDS: risperiDONE 1 MG TAB PO SCH ×2 (09:12→20:20)
[2018-01-11] MEDS: BACLOFEN 10 MG TAB PO SCH ×2 (09:12→20:20)
[2018-01-11] MEDS: PANTOPRAZOLE SOD 20 MG DELAYED RELEASE TAB PO SCH (09:12)
[2018-01-11] MEDS: AZITHROMYCIN INJ 500 MG in SODIUM CHLOR 0.9% 250 ML INJ 250 ML IV SCH (12:42)
[2018-01-11] MEDS: cefTRIAXone INJ 1,000 MG in SODIUM CHLORIDE 0.9% INJ 100 ML IV SCH (12:43)
--- NOTE | 2018-01-11 13:36 | HHI.PR ---
Subjective Remarks Patient does not feel improved yet. She is still using oxygen to manage her symptoms. She feels weak. Objective Vital Signs Date Time Temp Pulse Resp B/P (MAP) Pulse Ox O2 Delivery O2 Flow Rate FiO2 01/11/18 12:07 97.9 105 20 135/62 (86) 97 01/11/18 11:15 01/11/18 08:20 98.3 64 18 146/68 (94) 92 01/11/18 07:34 84 01/11/18 04:00 98.2 68 20 146/68 (94) 92 01/11/18 00:00 98.1 68 20 99/54 (69) 99 01/10/18 20:15 98.3 86 19 132/62 (85) 93 01/10/18 19:01 01/10/18 16:39 98.4 71 18 121/58 (79) 98 Nasal Cannula 2.00 I/O 01/10/18 01/10/18 01/10/18 01/11/18 01/11/18 01/11/18 07:00 15:00 23:00 07:00 15:00 23:00 # Voids 1 Result Diagram: 01/10/18 0940 01/11/18 0431 Objective Remarks GENERAL: NAD, A&Ox3 HEAD: Normocephalic. NECK: Supple, trachea midline. No lymphadenopathy. EYES: No scleral icterus. No injection or drainage. CARDIOVASCULAR: Regular rate and rhythm without murmurs, gallops, or rubs. RESPIRATORY: Breath sounds equal bilaterally. No accessory muscle use. GASTROINTESTINAL: Abdomen soft, non-tender, nondistended. MUSCULOSKELETAL: No cyanosis, or edema. SKIN: Warm and dry. NEURO: No focal neurological deficitis. A/P Problem List: (1) Pneumonia ICD Code: J18.9 - Pneumonia, unspecified organism Status: Acute Assessment and Plan 67-year-old female admitted secondary to pneumonia Community-acquired pneumonia Continue Rocephin Continue azithromycin Follow blood cultures Continue oxygen as needed Monitor for improvement Monitor for any signs of COPD exacerbation Mild acute renal insufficiency Continue IV hydration Follow renal function Presyncope Likely related to infection No abnormal findings on EKG COPD no acute exacerbation clinically continue home Pulmicort Mental health Continue antipsychotic medications Discharge planning Once patient's symptoms improve we will consider discharge Earl Vallejo MD January 11, 2018 13:36
[2018-01-11] MEDS: GABAPENTIN 300 MG CAP PO SCH (20:21)
[2018-01-11] MEDS: MIRTAZAPINE 15 MG TAB PO SCH (20:21)
[2018-01-11] MEDS: ENOXAPARIN SODIUM 30 MG/0.3 ML SYRINGE SQ SCH (20:21)
[2018-01-12] VITALS (7 sets, daily range): BP systolic 117–174; BP diastolic 56–72; PULSE 56–95; RESP 16–23; TEMP 97–98.4; O2SAT 93–98
[2018-01-12] MEDS ORDERED: cloNIDine HCL 0.1 MG TAB PO PRN (08:30)
[2018-01-12] MEDS ORDERED: ENALAPRILAT 1.25 MG/ML VIAL IV PUSH PRN (08:30)
[2018-01-12] MEDS: SENNOSIDES 8.6 MG TAB PO SCH (09:00)
[2018-01-12] MEDS: BACLOFEN 10 MG TAB PO SCH ×2 (09:00→20:12)
[2018-01-12] MEDS: TRIHEXYPHENIDYL HCL 2 MG TAB PO SCH ×2 (09:00→20:11)
[2018-01-12] MEDS: risperiDONE 1 MG TAB PO SCH ×2 (09:00→20:12)
[2018-01-12] MEDS: BUDESONIDE-FORMOTEROL 160/4.5 MCG INHALER INH SCH ×2 (09:00→20:11)
[2018-01-12] MEDS: PANTOPRAZOLE SOD 20 MG DELAYED RELEASE TAB PO SCH (09:00)
--- NOTE | 2018-01-12 10:29 | HHI.PR ---
Subjective Remarks Less symptomatic in regards to pneumonia today. However is reported patient keeps having confusion episodes. With this symptom she does not yet stable for home. Objective Vital Signs Date Time Temp Pulse Resp B/P (MAP) Pulse Ox O2 Delivery O2 Flow Rate FiO2 01/12/18 09:17 98.3 01/12/18 08:00 63 18 117/56 (76) 98 01/12/18 04:00 98.4 73 19 174/70 (104) 93 01/12/18 00:09 97.0 68 17 171/72 (105) 96 01/11/18 20:21 98.2 75 18 123/59 (80) 94 01/11/18 15:49 98.0 81 18 132/60 (84) 95 01/11/18 15:12 74 01/11/18 12:07 97.9 105 20 135/62 (86) 97 01/11/18 11:15 I/O 01/11/18 01/11/18 01/11/18 01/12/18 01/12/18 01/12/18 06:59 14:59 22:59 06:59 14:59 22:59 Intake Total 1070 ml 1940 ml Output Total 1200 ml Balance 1070 ml 740 ml Intake Oral 720 ml 1940 ml IV Total 350 ml Output Urine Total 1200 ml # Voids 1 3 2 # Bowel Movements 0 Result Diagram: 01/10/18 0940 01/11/18 0431 Objective Remarks GENERAL: NAD, A&Ox3 HEAD: Normocephalic. NECK: Supple, trachea midline. No lymphadenopathy. EYES: No scleral icterus. No injection or drainage. CARDIOVASCULAR: Regular rate and rhythm without murmurs, gallops, or rubs. RESPIRATORY: Breath sounds equal bilaterally. No accessory muscle use. GASTROINTESTINAL: Abdomen soft, non-tender, nondistended. MUSCULOSKELETAL: No cyanosis, or edema. SKIN: Warm and dry. NEURO: No focal neurological deficitis. A/P Problem List: (1) Pneumonia ICD Code: J18.9 - Pneumonia, unspecified organism Status: Acute Assessment and Plan 67-year-old female admitted secondary to pneumonia Clinically improving in regards to pneumonia. Confusion is present so patient will not yet be discharged. Monitor for next 24 hours for improvement in confusion. Etiology for confusion could be related to underlying/undiagnosed dementia with sundowning versus a mild degree of encephalopathy related to infection. Community-acquired pneumonia Possible related encephalopathy Continue Rocephin Continue azithromycin Follow blood cultures Continue oxygen as needed Monitor for improvement Monitor for any signs of COPD exacerbation Monitor for improved mentation Mild acute renal insufficiency Continue IV hydration Follow renal function Presyncope Likely related to infection No abnormal findings on EKG COPD no acute exacerbation clinically continue home Pulmicort Mental health Continue antipsychotic medications Discharge planning Once patient's symptoms improve we will consider discharge Earl Vallejo MD January 12, 2018 10:29
[2018-01-12] MEDS: cefTRIAXone INJ 1,000 MG in SODIUM CHLORIDE 0.9% INJ 100 ML IV SCH (12:00)
[2018-01-12] MEDS: AZITHROMYCIN INJ 500 MG in SODIUM CHLOR 0.9% 250 ML INJ 250 ML IV SCH (12:00)
[2018-01-12] MEDS ORDERED: [UNRECOGNIZED DRUG - OTHER] PO SCH (20:00)
[2018-01-12] MEDS: GABAPENTIN 300 MG CAP PO SCH (20:12)
[2018-01-12] MEDS: MIRTAZAPINE 15 MG TAB PO SCH (20:12)
[2018-01-12] MEDS: ENOXAPARIN SODIUM 30 MG/0.3 ML SYRINGE SQ SCH (20:12)
[2018-01-13] VITALS: BP 135/60; PULSE 59; PULSE 73; RESP 16; TEMP 98.2; O2SAT 94
[2018-01-13 04:00] VITALS: BP 112/54; PULSE 75; RESP 16; TEMP 98.4; O2SAT 93
[2018-01-13 08:00] VITALS: BP 118/57; PULSE 64; PULSE 73; RESP 16; TEMP 98.8; O2SAT 84
[2018-01-13] MEDS: PANTOPRAZOLE SOD 20 MG DELAYED RELEASE TAB PO SCH (09:55)
[2018-01-13] MEDS: TRIHEXYPHENIDYL HCL 2 MG TAB PO SCH (09:55)
[2018-01-13] MEDS: SENNOSIDES 8.6 MG TAB PO SCH (09:56)
[2018-01-13] MEDS: risperiDONE 1 MG TAB PO SCH (09:56)
[2018-01-13] MEDS: BACLOFEN 10 MG TAB PO SCH (09:56)
[2018-01-13] MEDS: BUDESONIDE-FORMOTEROL 160/4.5 MCG INHALER INH SCH (09:57)
[2018-01-13 12:00] VITALS: BP 112/55; PULSE 75; RESP 16; TEMP 98.3; O2SAT 93
[2018-01-13] MEDS: cefTRIAXone INJ 1,000 MG in SODIUM CHLORIDE 0.9% INJ 100 ML IV SCH (12:56)
[2018-01-13] MEDS: AZITHROMYCIN INJ 500 MG in SODIUM CHLOR 0.9% 250 ML INJ 250 ML IV SCH (12:58)
--- NOTE | 2018-01-13 14:06 | HHI.DCPOC ---
Discharge Care Plan Diagnosis: (1) Pneumonia Goals to Promote Your Health * To prevent worsening of your condition and complications * To maintain your health at the optimal level Directions to Meet Your Goals Take your medications as prescribed Follow your dietary instruction Follow activity as directed Keep your appointments as scheduled Take your immunizations and boosters as scheduled If your symptoms worsen call your PCP, if no PCP go to Urgent Care Center or Emergency Room Smoking is Dangerous to Your Health. Avoid second hand smoke Call the 24-hour hour crisis hotline for domestic abuse at Eduardo Jansen MD January 13, 2018 14:06
[2018-01-13] MEDS ORDERED: CEFU1TAB18 PO (14:07)
[2018-01-13] MEDS ORDERED: AZIT250T3 PO (14:07)
[2018-01-13] MEDS ORDERED: MIRT1TAB PO (14:09)
--- NOTE | 2018-01-13 15:58 | HHI.DS ---
Discharge Summary Admission Date January 12, 2018 at 11:30 Discharge Date: January 13, 2018 Admitting Diagnosis Pneumonia (1) Pneumonia ICD Code: J18.9 - Pneumonia, unspecified organism Status: Acute Procedures none Brief History - From Admission 67-year-old white female being admitted for pneumonia. Patient is a poor historian, history is obtained from both patient and emergency room records. Patient was in her usual state of health until about 4 days ago when she began experiencing intermittent spells of lightheadedness as well as generalized weakness. Her symptoms progressed and ultimately she called 911 from her [facility] to come to the emergency department. She told emergency room physician that she has been feeling short of breath, but she denies explicitly being short of breath to me. Patient denies any fevers or chills but does endorse some nausea. Denies vomiting and diarrhea. Denies having any chest pain. Reports being compliant with all of her medications as prescribed. Patient frequently has to be redirected on her questioning, when asked where she is she says her [facility]. When asked what month it is she responds by saying she is here for dizzy spells. Her medication regimen indicates antipsychotic meds. In the emergency department she had a chest x-ray and a CT done both of which I independently reviewed and see if possible mild left upper lobe infiltrate. Blood work is remarkable for mild renal insufficiency acutely. Patient was given Rocephin and azithromycin as well as a DuoNeb treatment emergency department. CBC/BMP: 01/10/18 0940 01/11/18 0431 Significant Findings Laboratory Tests Test 01/11/18 04:31 01/13/18 14:54 Blood Urea Nitrogen 20 MG/DL (7-18) Random Glucose 126 MG/DL (74-106) Chloride Level 110 MEQ/L (98-107) Estimat Glomerular Filtration Rate 59 ML/MIN (>89) Imaging Last Impressions Chest CT 01/10/18 1031 Signed Impressions: CONCLUSION: 1. Patchy subsegmental airspace disease in the lungs most characteristic of br onchopneumonia. There is some distal airway disease but overall this is improve d on the right since July 2017. Mild right hilar adenopathy is relatively s table. Chest X-Ray 01/10/18 9210 Signed Impressions: CONCLUSION: New right lung base opacity; further evaluation with CT should be considered. Otherwise stable chest. PE at Discharge Heart sounds regular rate rhythm, no murmurs, lungs are clear bilaterally to auscultation Hospital Course Patient was admitted, started on IV antibiotics. Patient's respiratory status had stabilized and her blood cultures remain negative. Her mental status had also improved significantly although she did have obvious signs of chronic dementia/intermittent confusion. Patient's Remeron dose was decreased and her Vistaril was discontinued as these medicines were thought to be contributing to some of her intermittent somnolence. Her level of alertness and confusion improved significantly by day 4. Patient had a bed secured at her long-term [facility]. Patient has met maximal benefit from hospitalization is clinically stable for discharge. Pt Condition on Discharge: Stable Discharge Disposition: [facility] with [facility] Discharge Time: <= 30 minutes Discharge Instructions DIET: Follow Instructions for: Heart Healthy Diet Activities you can perform: See Additionl Instruction Other Activity Instructions: per previous status prior to presentation Follow up Referrals: PCP Follow-up - 1 Week New Medications: Azithromycin (Azithromycin) 250 Mg Tab 250 MG PO DAILY for Infection, #2 TAB 0 Refills Cefuroxime (Ceftin) 250 Mg Tab 250 MG PO BID for pneumonia, #7 TAB Mirtazapine (Mirtazapine) 7.5 Mg Tab 7.5 MG PO HS for Depression Control, #30 TAB 0 Refills Continued Medications: Albuterol 18 GM Inh (Ventolin Hfa 18 GM Inh) 90 Mcg/Act Aer 2 PUFF INH Q4-6H PRN for SHORTNESS OF BREATH, #1 INHALER 0 Refills Budesonide-Formoterol Inh (Symbicort Inh) 160-4.5 Mcg/Act Aero 2 PUFF INH Q12HR, #1 INHALER 0 Refills Famotidine (Pepcid) 20 Mg Tab 20 MG PO DAILY, #60 TAB 1 Refill Fluoxetine (Fluoxetine) 20 Mg Capsule 20 MG PO DAILY PRN for AGITATION AND/OR HALLUCINATION, #30 CAP 0 Refills Gabapentin (Gabapentin) 300 Mg Cap 300 MG PO HS, #30 CAP 0 Refills Meloxicam (Meloxicam) 7.5 Mg Tab 7.5 MG PO DAILY for Arthritis Pain, TAB 0 Refills Mirabegron (Myrbetriq) 25 Mg Tab 25 MG .ROUTE DAILY PRN for BLADDER SPASM, #30 TAB 0 Refills Pantoprazole (Protonix) 20 Mg Tab 20 MG PO DAILY for Reflux, #30 TAB 0 Refills Risperidone (Risperidone) 4 Mg Tab 4 MG PO Q12HR, #60 TAB 0 Refills Sennosides (Senna-Tabs) 8.6 Mg Tab 8.6 MG PO DAILY for Constipation, #30 TAB 0 Refills Trihexyphenidyl (Trihexyphenidyl) 2 Mg Tab 2 MG PO BID for Parkinson Disease Mgmt, #60 TAB 0 Refills Vismodegib (Erivedge) 150 Mg Cap 1 CAP PO DAILY Discontinued Medications: Baclofen (Baclofen) 10 Mg Tab 10 MG PO BID, TAB 0 Refills Hydroxyzine Pamoate (Vistaril) 25 Mg Cap 25 MG PO BID, CAP 0 Refills Mirtazapine (Mirtazapine) 15 Mg Tab 30 MG PO HS for Depression Control, #30 TAB 0 Refills Eduardo Jansen MD January 13, 2018 15:58
--- NOTE | 2018-01-13 16:00 | HHI.FF ---
Face to Face Verification Diagnosis: (1) Dementia (2) Pneumonia Physical Therapy Order: Evaluate and Treat, Improve ambulation, Strength and gait training Occupational Therapy Order: Evaluate and Treat, Improve ADL Home Health Nursing Order: Signs/symptoms of disease process Nursing assessment with vital signs I have seen patient Marycarmen Breaux on 01/13/18. My clinical findings support the need for the requested home health care services because: Med compliance is questionable Limited ability to care for self Impaired cognition/judgement I certify that my clinical findings support that this patient is homebound because: Impaired cognitive ability/safety Eduarod Jansen MD January 13, 2018 16:00
== END 2018-01-13 20:22 | DRG 190 ==
LOC: NEPE 08:55 → INTOOBSV 11:54 → NEDA 11:54 → N03B 19:11 → OBSVTOIN 01-12 11:30
PROVIDERS: ADMIT Hospitalist; ATTEND Hospitalist
DX: J44.0 Chronic obstructive pulmonary disease with (acute) lower respiratory infection (principal); J18.9 Pneumonia, unspecified organism; E78.00 Pure hypercholesterolemia, unspecified; E11.9 Type 2 diabetes mellitus without complications; K21.9 Gastro-esophageal reflux disease without esophagitis; N28.9 Disorder of kidney and ureter, unspecified; I10 Essential (primary) hypertension; R55 Syncope and collapse; R41.0 Disorientation, unspecified; F12.90 Cannabis use, unspecified, uncomplicated; F20.9 Schizophrenia, unspecified; F14.90 Cocaine use, unspecified, uncomplicated; Z72.0 Tobacco use; Z86.73 Personal history of transient ischemic attack (TIA), and cerebral infarction without residual deficits
CPT/HCPCS: 71045; 71250; 80048; 80053; 82550; 82552; 82607; 83880; 84443; 84484; 85025; 85610; 85730; 87040; 93005; 94640; 94664; 96365; 96368; J0456; J0696; J1650; J7030; J7050

== ENCOUNTER 2018-02-11 11:44 | Inpatient (IN) | payer MEDICARE, MEDICAID ==
[2018-02-11] VITALS (11 sets, daily range): BP systolic 110–142; BP diastolic 55–81; PULSE 79–100; RESP 17–20; TEMP 97.8–98.8; O2SAT 90–97
[~2018-02-11] VITALS: Ht 160 cm; Wt 72.5 kg
[~2018-02-11 11:44] MED LIST changes: +AZIT250T3 PO; +CEFU1TAB18 PO; -DOCU1CAP39; -LEVA750T9 PO; +LISI10TA3 PO; -MIRA25TA; +MIRA25TA PO; +MIRT1TAB PO; -MIRTA15 PO; -NICO21DI2 T-DERMAL; -OXYGENDME NAS.CANULA; -PRED20 PO; +SENN8.6T36 PO; -TYLE325T PO; +VISM150C PO; -VIST25CA PO
--- NOTE | 2018-02-11 11:57 | PD ---
HPI Chief Complaint: Respiratory Symptoms Time Seen by Provider: 11:53 Travel History International Travel<30 days: No Contact w/Intl Traveler<30days: No Traveled to known affect area: No History of Present Illness HPI 67-year-old female with history of CAD, COPD, diabetes, presents to the emergency department for evaluation of shortness of breath since this morning. Patient states it feels like she cannot take a deep breath. She denies pain. She denies fever or chills. Patient is oxygen dependent at home. She has not been recently ill. She has had no fever or chills. She does continue to smoke tobacco cigarettes occasionally. She has no other symptoms to report. PFSH Past Medical History Arthritis: No Autoimmune Disease: No Anxiety: No Depression: No Heart Rhythm Problems: No Cancer: No Cardiovascular Problems: Yes High Cholesterol: Yes Chemotherapy: No Chest Pain: No Congestive Heart Failure: No COPD: Yes Cerebrovascular Accident: No Diabetes: Yes Diminished Hearing: No Endocrine: No GERD: Yes Genitourinary: No Hiatal Hernia: No Immune Disorder: No Kidney Stones: No Musculoskeletal: No Neurologic: No Psychiatric: Yes Reproductive: No Respiratory: Yes Immunizations Current: No Migraines: No Radiation Therapy: No Renal Failure: No Schizophrenia: Yes Seizures: No Sickle Cell Disease: No Sleep Apnea: No Thyroid Disease: No Ulcer: No Menopausal: Yes Past Surgical History Abdominal Surgery: Yes (gallstones) AICD: No Arteriovenous Shunt: No Cardiac Surgery: No Cholecystectomy: Yes (GALL STONES REMOVED) Endocrine Surgery: No Eye Surgery: Yes Genitourinary Surgery: No Gynecologic Surgery: Yes () Hysterectomy: Yes Insulin Pump: No Joint Replacement: No Oral Surgery: Yes Pacemaker: No Thoracic Surgery: No Other Surgery: Yes Social History Alcohol Use: No Tobacco Use: No (QUIT) Substance Use: Yes (marijuana, cocaine) Allergies-Medications (Allergen,Severity, Reaction): Coded Allergies: No Known Allergies (Verified Allergy, Unknown, 02/11/18) Reported Meds & Prescriptions Reported Meds & Active Scripts Active Mirtazapine 7.5 Mg Tab 7.5 Mg PO HS Ceftin (Cefuroxime Axetil) 250 Mg Tab 250 Mg PO BID Azithromycin 250 Mg Tab 250 Mg PO DAILY Ventolin Hfa 18 GM Inh (Albuterol Sulfate) 90 Mcg/Act Aer 2 Puff INH Q4-6H PRN Reported Erivedge (Vismodegib) 150 Mg Cap 1 Cap PO DAILY Senna-Tabs (Sennosides) 8.6 Mg Tab 8.6 Mg PO DAILY Lisinopril 10 Mg Tab 10 Mg PO DAILY Symbicort Inh (Budesonide/Formoterol Fumarate) 160-4.5 Mcg/Act Aero 2 Puff INH Q12HR Gabapentin 300 Mg Cap 300 Mg PO HS Risperidone 4 Mg Tab 4 Mg PO Q12HR Meloxicam 7.5 Mg Tab 7.5 Mg PO DAILY Trihexyphenidyl (Trihexyphenidyl HCl) 2 Mg Tab 2 Mg PO BID Protonix (Pantoprazole Sodium) 20 Mg Tab 20 Mg PO DAILY Myrbetriq (Mirabegron) 25 Mg Tab 25 Mg .ROUTE DAILY PRN Fluoxetine (Fluoxetine HCl) 20 Mg Capsule 20 Mg PO DAILY PRN Pepcid (Famotidine) 20 Mg Tab 20 Mg PO DAILY Review of Systems Except as stated in HPI: all other systems reviewed are Neg Physical Exam Narrative GENERAL: Well-nourished female patient, lying in bed, appears in no acute distress SKIN: Focused skin assessment warm/dry. HEAD: Atraumatic. Normocephalic. EYES: Pupils equal and round. No scleral icterus. No injection or drainage. ENT: No nasal bleeding or discharge. Mucous membranes pink and moist. NECK: Trachea midline. No JVD. CARDIOVASCULAR: Regular rate and rhythm. RESPIRATORY: No accessory muscle use. Diminished, coarse with a fine expiratory wheeze to auscultation. Breath sounds equal bilaterally. GASTROINTESTINAL: Abdomen soft, non-tender, nondistended. No guarding. No rebound tenderness hepatic and splenic margins not palpable. MUSCULOSKELETAL: No obvious deformities. No clubbing. No cyanosis. No edema. NEUROLOGICAL: Awake and alert. No obvious cranial nerve deficits. Motor grossly within normal limits. Normal speech. PSYCHIATRIC: Appropriate mood and affect Data Data Last Documented VS Vital Signs Date Time Temp Pulse Resp B/P (MAP) Pulse Ox O2 Delivery O2 Flow Rate FiO2 02/11/18 12:43 18 92 Room Air 02/11/18 12:43 3.00 02/11/18 11:51 98.8 88 110/55 (73) Orders Orders Complete Blood Count With Diff (02/11/18 11:53) Basic Metabolic Panel (Bmp) (02/11/18 11:53) Act Partial Throm Time (Ptt) (02/11/18 11:53) Prothrombin Time / Inr (Pt) (02/11/18 11:53) Ckmb (Isoenzyme) Profile (02/11/18 11:53) Troponin I (02/11/18 11:53) Iv Access Insert/Monitor (02/11/18 11:53) Electrocardiogram (02/11/18 11:53) Ecg Monitoring (02/11/18 11:53) Oximetry (02/11/18 11:53) Oxygen Administration (02/11/18 11:53) Chest, Pa & Lat (02/11/18 11:53) Sodium Chloride 0.9% Flush (Ns Flush) (02/11/18 12:00) Methylprednisolone So Succ Inj (Solumedr (02/11/18 12:00) Albuterol-Ipratropium Neb (Duoneb Neb) (02/11/18 12:00) Lactic Acid (02/11/18 12:41) Blood Culture (02/11/18 12:41) Cefepime Inj (Maxipime Inj) (02/11/18 12:45) Azithromycin Inj (Zithromax Inj) (02/11/18 12:45) Labs Laboratory Tests Test 02/11/18 12:00 White Blood Count 17.2 TH/MM3 Red Blood Count 3.71 MIL/MM3 Hemoglobin 9.6 GM/DL Hematocrit 30.3 % Mean Corpuscular Volume 81.5 FL Mean Corpuscular Hemoglobin 26.0 PG Mean Corpuscular Hemoglobin Concent 31.9 % Red Cell Distribution Width 16.6 % Platelet Count 417 TH/MM3 Mean Platelet Volume 7.3 FL Neutrophils (%) (Auto) 84.7 % Lymphocytes (%) (Auto) 6.6 % Monocytes (%) (Auto) 7.3 % Eosinophils (%) (Auto) 1.1 % Basophils (%) (Auto) 0.3 % Neutrophils # (Auto) 14.6 TH/MM3 Lymphocytes # (Auto) 1.1 TH/MM3 Monocytes # (Auto) 1.2 TH/MM3 Eosinophils # (Auto) 0.2 TH/MM3 Basophils # (Auto) 0.1 TH/MM3 CBC Comment DIFF FINAL Differential Comment Prothrombin Time 11.3 SEC Prothromb Time International Ratio 1.1 RATIO Activated Partial Thromboplast Time 28.2 SEC Blood Urea Nitrogen 22 MG/DL Creatinine 0.96 MG/DL Random Glucose 172 MG/DL Calcium Level 8.7 MG/DL Sodium Level 139 MEQ/L Potassium Level 4.2 MEQ/L Chloride Level 106 MEQ/L Carbon Dioxide Level 24.0 MEQ/L Anion Gap 9 MEQ/L Estimat Glomerular Filtration Rate 58 ML/MIN MDM Medical Decision Making Medical Screen Exam Complete: Yes Emergency Medical Condition: Yes Medical Record Reviewed: Yes Differential Diagnosis COPD exacerbation versus pneumonia versus ACS versus neoplasm Narrative Course 67-year-old female presents emergency department for evaluation of shortness of breath since this morning. Patient appears well. She appears without distress. She does have oxygen saturation 90%. She is oxygen dependent at home. Workup is initiated in the triage ambulance hallway. Patient is given IV Solu-Medrol and 3 DuoNeb treatments. Basic lab work and chest x-ray are also ordered. Once a medical bed becomes available, patient will be transferred and care assumed by that provider. Condition: Stable Viviana Merritt Feb 11, 2018 11:57
[2018-02-11] MEDS ORDERED: methylPREDNISolone SOD SUCC 125 MG/2 ML VIAL IV PUSH ONE (12:00)
[2018-02-11] MEDS ORDERED: SODIUM CHLORIDE 0.9% FLUSH 10 ML FLUSH IVF PRN (12:00)
[2018-02-11 12:24] LABS: AUTOMATED NEUTROPHIL # 14.6 TH/MM3 (1.8-7.7); BASOPHIL # 0.1 TH/MM3 (0-0.2); BASOPHIL % 0.3 % (0.0-2.0); EOSINOPHIL # 0.2 TH/MM3 (0-0.4); EOSINOPHIL % 1.1 % (0.0-4.0); HEMATOCRIT 30.3 % (35.0-46.0); HEMOGLOBIN 9.6 GM/DL (11.6-15.3); LYMPH % 6.6 % (9.0-44.0); LYMPHOCYTE # 1.1 TH/MM3 (1.0-4.8); MEAN CELL VOLUME 81.5 FL (80.0-100.0); MEAN CORPUSCULAR HGB CONC 31.9 % (32.0-36.0); MEAN PLATELET VOLUME 7.3 FL (7.0-11.0); MONO % 7.3 % (0.0-8.0); MONOCYTE # 1.2 TH/MM3 (0-0.9); NEUT % 84.7 % (16.0-70.0); PLATELET COUNT 417 TH/MM3 (150-450); RED BLOOD COUNT 3.71 MIL/MM3 (4.00-5.30); RED CELL DISTRIBUTION WIDTH 16.6 % (11.6-17.2); WHITE BLOOD COUNT 17.2 TH/MM3 (4.0-11.0)
--- NOTE | 2018-02-11 12:33 | RADRPT ---
EXAM DATE: 02/11/2018 12:29 PM EDT AGE/SEX: 67 years / Female INDICATIONS: Short of breath, weak CLINICAL DATA: This is the patient's initial encounter. Patient reports that signs and symptoms have been present for 1 day and indicates a pain score of 0/10. MEDICAL/SURGICAL HISTORY: None. None. COMPARISON: [facility] [place]ST [place] & [place], 06/27/2017. . FINDINGS: There is patchy right basilar airspace consolidation most characteristic of bronchopneumonia. Left shannan ng relatively clear. No significant effusion. Heart size within normal limits. CONCLUSION: Patchy right basilar airspace disease. Differential diagnosis includes bronchopneumonia and aspiratio n. Electronically signed by: Abhay Carter MD 02/11/2018 12:31 PM EDT
[2018-02-11 12:39] LABS: INTERNATIONAL NORMALIZED RATIO 1.1 RATIO; PROTHROMBIN TIME - PATIENT 11.3 SEC (9.8-11.6)
[2018-02-11 12:43] LABS: BLOOD UREA NITROGEN 22 MG/DL (7-18); CALCIUM 8.7 MG/DL (8.5-10.1); CHLORIDE 106 MEQ/L (98-107); CREATININE 0.96 MG/DL (0.50-1.00); GLOMERULAR FILTRATION RATE 58 ML/MIN (>89); GLUCOSE,RANDOM 172 MG/DL (74-106); SODIUM (NA) 139 MEQ/L (136-145)
[2018-02-11] MEDS ORDERED: AZITHROMYCIN INJ 500 MG in SODIUM CHLOR 0.9% 250 ML INJ 250 ML IV ONE (12:45)
[2018-02-11] MEDS ORDERED: CEFEPIME INJ 2,000 MG in SODIUM CHLORIDE 0.9% INJ 100 ML IV ONE (12:45)
[2018-02-11 12:47] LABS: TROPONIN I LESS THAN 0.02 NG/ML (0.02-0.05)
--- NOTE | 2018-02-11 12:51 | PD ---
Physical Exam Date Seen by Provider: Feb 11, 2018 Time Seen by Provider: 12:47 Narrative The patient is a 67-year-old female who initially was evaluated by the mid- level provider. Please refer to the initial history, physical, diagnostic evaluation, and treatment modality plan. Data Data Last Documented VS Vital Signs Date Time Temp Pulse Resp B/P (MAP) Pulse Ox O2 Delivery O2 Flow Rate FiO2 02/11/18 12:58 97.9 79 18 131/58 (82) 97 Room Air 02/11/18 12:45 2.00 Orders Orders Complete Blood Count With Diff (02/11/18 11:53) Basic Metabolic Panel (Bmp) (02/11/18 11:53) Act Partial Throm Time (Ptt) (02/11/18 11:53) Prothrombin Time / Inr (Pt) (02/11/18 11:53) Ckmb (Isoenzyme) Profile (02/11/18 11:53) Troponin I (02/11/18 11:53) Iv Access Insert/Monitor (02/11/18 11:53) Electrocardiogram (02/11/18 11:53) Ecg Monitoring (02/11/18 11:53) Oximetry (02/11/18 11:53) Oxygen Administration (02/11/18 11:53) Chest, Pa & Lat (02/11/18 11:53) Sodium Chloride 0.9% Flush (Ns Flush) (02/11/18 12:00) Methylprednisolone So Succ Inj (Solumedr (02/11/18 12:00) Albuterol-Ipratropium Neb (Duoneb Neb) (02/11/18 12:00) Lactic Acid (02/11/18 12:41) Blood Culture (02/11/18 12:41) Cefepime Inj (Maxipime Inj) (02/11/18 12:45) Azithromycin Inj (Zithromax Inj) (02/11/18 12:45) CKMB (02/11/18 12:00) CKMB% (02/11/18 12:00) Labs Laboratory Tests Test 02/11/18 12:00 02/11/18 12:41 White Blood Count 17.2 TH/MM3 Red Blood Count 3.71 MIL/MM3 Hemoglobin 9.6 GM/DL Hematocrit 30.3 % Mean Corpuscular Volume 81.5 FL Mean Corpuscular Hemoglobin 26.0 PG Mean Corpuscular Hemoglobin Concent 31.9 % Red Cell Distribution Width 16.6 % Platelet Count 417 TH/MM3 Mean Platelet Volume 7.3 FL Neutrophils (%) (Auto) 84.7 % Lymphocytes (%) (Auto) 6.6 % Monocytes (%) (Auto) 7.3 % Eosinophils (%) (Auto) 1.1 % Basophils (%) (Auto) 0.3 % Neutrophils # (Auto) 14.6 TH/MM3 Lymphocytes # (Auto) 1.1 TH/MM3 Monocytes # (Auto) 1.2 TH/MM3 Eosinophils # (Auto) 0.2 TH/MM3 Basophils # (Auto) 0.1 TH/MM3 CBC Comment DIFF FINAL Differential Comment Prothrombin Time 11.3 SEC Prothromb Time International Ratio 1.1 RATIO Activated Partial Thromboplast Time 28.2 SEC Blood Urea Nitrogen 22 MG/DL Creatinine 0.96 MG/DL Random Glucose 172 MG/DL Calcium Level 8.7 MG/DL Sodium Level 139 MEQ/L Potassium Level 4.2 MEQ/L Chloride Level 106 MEQ/L Carbon Dioxide Level 24.0 MEQ/L Anion Gap 9 MEQ/L Estimat Glomerular Filtration Rate 58 ML/MIN Total Creatine Kinase 143 U/L Creatine Kinase MB 0.8 NG/ML Troponin I LESS THAN 0.02 NG/ML [facility] Medical Record Reviewed: Yes Supervised Visit with KARLEY: Yes Interpretation(s) EKG reveals normal sinus rhythm with a rate 85. Low QRS voltage in precordial leads. Q waves noted in lead III. Last Impressions Chest X-Ray 02/11/18 1153 Signed Impressions: CONCLUSION: Patchy right basilar airspace disease. Differential diagnosis includes bronchop neumonia and aspiration. Laboratory Tests Test 02/11/18 12:00 02/11/18 12:41 White Blood Count 17.2 TH/MM3 Red Blood Count 3.71 MIL/MM3 Hemoglobin 9.6 GM/DL Hematocrit 30.3 % Mean Corpuscular Volume 81.5 FL Mean Corpuscular Hemoglobin 26.0 PG Mean Corpuscular Hemoglobin Concent 31.9 % Red Cell Distribution Width 16.6 % Platelet Count 417 TH/MM3 Mean Platelet Volume 7.3 FL Neutrophils (%) (Auto) 84.7 % Lymphocytes (%) (Auto) 6.6 % Monocytes (%) (Auto) 7.3 % Eosinophils (%) (Auto) 1.1 % Basophils (%) (Auto) 0.3 % Neutrophils # (Auto) 14.6 TH/MM3 Lymphocytes # (Auto) 1.1 TH/MM3 Monocytes # (Auto) 1.2 TH/MM3 Eosinophils # (Auto) 0.2 TH/MM3 Basophils # (Auto) 0.1 TH/MM3 CBC Comment DIFF FINAL Differential Comment Prothrombin Time 11.3 SEC Prothromb Time International Ratio 1.1 RATIO Activated Partial Thromboplast Time 28.2 SEC Blood Urea Nitrogen 22 MG/DL Creatinine 0.96 MG/DL Random Glucose 172 MG/DL Calcium Level 8.7 MG/DL Sodium Level 139 MEQ/L Potassium Level 4.2 MEQ/L Chloride Level 106 MEQ/L Carbon Dioxide Level 24.0 MEQ/L Anion Gap 9 MEQ/L Estimat Glomerular Filtration Rate 58 ML/MIN Total Creatine Kinase 143 U/L Creatine Kinase MB 0.8 NG/ML Troponin I LESS THAN 0.02 NG/ML Differential Diagnosis Differential diagnosis includes pneumonia, aspiration, bronchitis, COPD exacerbation, pleural effusion, pulmonary embolism, acute coronary syndrome. Narrative Course I, Dr. Adorno, have reviewed the advance practice practitioner's documentation and am in agreement, met with the patient face to face, made the diagnosis, and the medical decision making was done by me. *My assessment and Findings: The patient is a 67-year-old female who [facility] for increasing cough and shortness of breath. The patient does have a history of recurrent pneumonia , was recently treated with cefuroxime. The patient was noted to have progressing symptoms with mild hypoxia and was sent to the emergency department for further evaluation. The patient does have rhonchi in the right base and hypoxia 90% on room air. The patient was placed on O2 via nasal cannula at 3 L which brought her oxygen saturation up to 95%. Patient received duo nebs, cefepime, and Zithromax to cover for healthcare acquired pneumonia. Patient's white count was elevated at 17.3. Lactic acid and blood cultures were sent to lab prior to antibiotic administration. The patient was reevaluated after DuoNeb's. Sepsis Criteria SIRS Criteria (2 or more): WBC > 69101, < 4000 or > 10% bands Sepsis Criteria (SIRS+source): Infect source susp/known Physician Communication Physician Communication [facility] Hospitalist were paged for 23 hour observation. Diagnosis Primary Impression: Pneumonia Qualified Codes: J18.1 - Lobar pneumonia, unspecified organism Admitting Information Admitting Physician Requests: Observation Condition: Stable Patrick Adorno MD Feb 11, 2018 12:51
[2018-02-11] MEDS: RESP: ALBUTEROL 2.5 MG/IPRATROPIUM 0.5 MG NEB (SCH) INH ×2 (12:58→12:59)
[2018-02-11] MEDS ORDERED: HYDR-3133 PO (13:22)
[2018-02-11] MEDS ORDERED: DOCU100C15 PO (13:22)
[2018-02-11] MEDS ORDERED: SODIUM CHLOR 0.9% 1000 ML INJ 1,000 ML IV ONE (14:15)
[2018-02-11] MEDS ORDERED: VANCOMYCIN INJ 1,000 MG in SODIUM CHLOR 0.9% 250 ML INJ 250 ML IV SCH (14:15)
[2018-02-11] MEDS ORDERED: Vancomycin Consult Pharmacy 1 EA OTHER SCH (14:15)
[2018-02-11] MEDS ORDERED: NALOXONE HCL 0.4 MG/ML AMP IV PUSH PRN (14:30)
[2018-02-11] MEDS ORDERED: LACTULOSE SYRUP 20 GM/30 ML CUP PO PRN (14:30)
[2018-02-11] MEDS ORDERED: SENNOSIDES 8.6 MG TAB PO PRN (14:30)
[2018-02-11] MEDS ORDERED: SODIUM CHLORIDE 0.9% FLUSH 10 ML FLUSH IV FLUSH PRN (14:30)
[2018-02-11] MEDS ORDERED: BISACODYL 10 MG SUPP RECTAL PRN (14:30)
[2018-02-11] MEDS ORDERED: DOCUSATE SODIUM 50 MG/SENNA 8.6 MG TAB PO ONE (15:00)
[2018-02-11] MEDS: RESP: ALBUTEROL 2.5 MG/IPRATROPIUM 0.5 MG NEB (SCH) NEB ×2 (15:11→17:10)
[2018-02-11] MEDS ORDERED: MAGNESIUM HYDROXIDE SUSP 30 ML CUP PO ONE (15:15)
--- NOTE | 2018-02-11 15:15 | EKG ---
Date Performed: 02/11/2018 Time Performed: 12:47:07 PTAGE: 67 years EKG: Sinus rhythm LOW QRS VOLTAGE IN PRECORDIAL LEADS BORDERLINE ECG No significant change from prior electrocardiogra m. PREVIOUS TRACING : 01/10/2018 09.48 DOCTOR: Yovani Petersen Interpretating Date/Time 02/11/2018 15:13:29
[2018-02-11] MEDS: SODIUM CHLOR 0.45% 1000 ML INJ 1,000 ML IV SCH (15:17)
--- NOTE | 2018-02-11 15:35 | RADRPT ---
EXAM DATE: 02/11/2018 3:16 PM EDT AGE/SEX: 67 years / Female INDICATIONS: Evaluate for constipation CLINICAL DATA: This is the patient's initial encounter. Patient reports that signs and symptoms have been present for 3 days and indicates a pain score of 0/10. MEDICAL/SURGICAL HISTORY: . Cardiovascular disease. Chronic obstructive pulmonary disease. Diab etes. . . Hysterectomy COMPARISON: No prior exams available for comparison. FINDINGS: Centimeters below something in her stool is seen throughout the colon. Degenerative changes lower lum bar spine. Moderate stool throughout the colon. Degenerative changes lower lumbar spine. The bulk of the stool is in the ascending and descending colon. CONCLUSION: Moderate stool as above. Electronically signed by: Boris Menchaca MD 02/11/2018 3:33 PM EDT
[2018-02-11] MEDS: PIPERACIL-TAZO 3.375 GM PREMIX 50 ML IV SCH (15:45)
[2018-02-11] MEDS ORDERED: MAGNESIUM CITRATE SOLN 300 ML BTL PO ONE (16:00)
[2018-02-11] MEDS ORDERED: PROMETHAZINE HCL 25 MG TAB PO PRN (16:00)
[2018-02-11] MEDS ORDERED: SOD PHOSPHATE/SOD BIPHOSPHATE (ADULT) ENEMA 133ML RECTAL ONE (16:00)
--- NOTE | 2018-02-11 16:06 | HHI.HP ---
HPI Service [facility] Primary Care Physician Unknown Admission Diagnosis Right lower lobe pneumonia, leukocytosis, sepsis Diagnoses: Travel History International Travel<30 Days: No Contact w/Intl Traveler <30 Da: No Traveled to Known Affected Are: No History of Present Illness 67-year-old female with COPD, hypertension,GERD who presents with a 3 day history of worsening dry cough, 1 day history of shortness of breath. Patient reports nausea and vomiting for 1 day, with nonbloody vomiting yesterday. She says she believes this is secondary to worsening chronic constipation with no bowel movement over the past week. She denies any abdominal pain. She denies any nausea at this time. Denies any difficulty swallowing. Denies any chest pain, sore throat, sinus drainage. Previous admission noted last month where she was treated for pneumonia. Review of Systems Except as stated in HPI: all other systems reviewed are Neg Past Family Social History Past Medical History COPD muscle spasms Hypertension CVA Schizophrenia GERD Bladder spasms Past Surgical History Cholecystectomy Hysterectomy Reported Medications Reported Meds & Active Scripts Active Mirtazapine 7.5 Mg Tab 7.5 Mg PO HS Ceftin (Cefuroxime Axetil) 250 Mg Tab 250 Mg PO BID Ventolin Hfa 18 GM Inh (Albuterol Sulfate) 90 Mcg/Act Aer 2 Puff INH Q4-6H PRN Reported Docusate Sodium 100 Mg Cap 100 Mg PO HS PRN Hydroxyzine HCl 25 Mg Tab 25 Mg PO BID Erivedge (Vismodegib) 150 Mg Cap 1 Cap PO DAILY Senna-Tabs (Sennosides) 8.6 Mg Tab 8.6 Mg PO DAILY Lisinopril 10 Mg Tab 10 Mg PO DAILY Symbicort Inh (Budesonide/Formoterol Fumarate) 160-4.5 Mcg/Act Aero 2 Puff INH Q12HR Gabapentin 300 Mg Cap 300 Mg PO DAILY Risperidone 4 Mg Tab 4 Mg PO Q12HR Meloxicam 7.5 Mg Tab 7.5 Mg PO DAILY Trihexyphenidyl (Trihexyphenidyl HCl) 2 Mg Tab 2 Mg PO BID Protonix (Pantoprazole Sodium) 20 Mg Tab 20 Mg PO DAILY Myrbetriq (Mirabegron) 25 Mg Tab 25 Mg PO HS PRN Fluoxetine (Fluoxetine HCl) 20 Mg Capsule 20 Mg PO DAILY PRN Allergies: Coded Allergies: No Known Allergies (Verified Allergy, Unknown, 02/11/18) Family History Family history reviewed with the patient and found to be currently noncontributory. Social History She quit smoking 1 year ago. Denies alcohol use. History of marijuana and cocaine use. Physical Exam Vital Signs Vital Signs Date Time Temp Pulse Resp B/P (MAP) Pulse Ox O2 Delivery O2 Flow Rate FiO2 02/11/18 14:18 97.9 100 20 132/62 (85) 96 Room Air 2.00 02/11/18 12:58 97.9 79 18 131/58 (82) 97 Room Air 02/11/18 12:45 89 20 96 Nasal Cannula 2.00 02/11/18 12:43 18 92 Room Air 02/11/18 12:43 96 Nasal Cannula 3.00 02/11/18 11:51 98.8 88 20 110/55 (73) 90 Physical Exam GENERAL: This is a well-nourished, well-developed patient, who appears short of breath SKIN: No rashes, ecchymoses or lesions. Cool and dry. HEAD: Atraumatic. Normocephalic. No temporal or scalp tenderness. EYES: Pupils equal round and reactive. Extraocular motions intact. No scleral icterus. No injection or drainage. ENT: Nose without bleeding, purulent drainage or septal hematoma. Throat without erythema, tonsillar hypertrophy or exudate. Uvula midline. Airway patent. NECK: Trachea midline. No JVD or lymphadenopathy. Supple, nontender, no meningeal signs. CARDIOVASCULAR: Regular rate and rhythm without murmurs, gallops, or rubs. RESPIRATORY: Rhonchi right lower lobe. No rales. GASTROINTESTINAL: Abdomen soft, non-tender, nondistended. No hepato-splenomegaly , or palpable masses. No guarding. MUSCULOSKELETAL: Extremities without clubbing, cyanosis, or edema. No joint tenderness, effusion, or edema noted. No calf tenderness. Negative Homans sign bilaterally. NEUROLOGICAL: Awake and alert. Cranial nerves II through XII intact. Motor and sensory grossly within normal limits. Five out of 5 muscle strength in all muscle groups. Normal speech. Laboratory Laboratory Tests Test 02/11/18 12:00 02/11/18 12:41 White Blood Count 17.2 Red Blood Count 3.71 Hemoglobin 9.6 Hematocrit 30.3 Mean Corpuscular Volume 81.5 Mean Corpuscular Hemoglobin 26.0 Mean Corpuscular Hemoglobin Concent 31.9 Red Cell Distribution Width 16.6 Platelet Count 417 Mean Platelet Volume 7.3 Neutrophils (%) (Auto) 84.7 Lymphocytes (%) (Auto) 6.6 Monocytes (%) (Auto) 7.3 Eosinophils (%) (Auto) 1.1 Basophils (%) (Auto) 0.3 Neutrophils # (Auto) 14.6 Lymphocytes # (Auto) 1.1 Monocytes # (Auto) 1.2 Eosinophils # (Auto) 0.2 Basophils # (Auto) 0.1 CBC Comment DIFF FINAL Differential Comment Prothrombin Time 11.3 Prothromb Time International Ratio 1.1 Activated Partial Thromboplast Time 28.2 Blood Urea Nitrogen 22 Creatinine 0.96 Random Glucose 172 Calcium Level 8.7 Sodium Level 139 Potassium Level 4.2 Chloride Level 106 Carbon Dioxide Level 24.0 Anion Gap 9 Estimat Glomerular Filtration Rate 58 Total Creatine Kinase 143 Creatine Kinase MB 0.8 Troponin I LESS THAN 0.02 Lactic Acid Level 1.1 Date/Time Source Procedure Growth Status 02/11/18 12:41 Blood Peripheral Aerobic Blood Culture Pending Received 02/11/18 12:41 Blood Peripheral Anaerobic Blood Culture Pending Received Result Diagram: 02/11/18 1200 02/11/18 1200 Imaging Last Impressions Chest X-Ray 02/11/18 1153 Signed Impressions: CONCLUSION: Patchy right basilar airspace disease. Differential diagnosis includes bronchop neumonia and aspiration. Abdomen X-Ray 02/11/18 0000 Signed Impressions: CONCLUSION: Moderate stool as above. Caprini VTE Risk Assessment Caprini VTE Risk Assessment: Mod/High Risk (score >= 2) Caprini Risk Assessment Model Point Value = 1 Point Value = 2 Point Value = 3 Point Value = 5 Age 41-60 Minor surgery BMI > 25 kg/m2 Swollen legs Varicose veins or History of unexplained or recurrent spontaneous Oral contraceptives or hormone replacement Sepsis (< 1 month) Serious lung disease, including pneumonia (< 1 month) Abnormal pulmonary function Acute myocardial infarction Congestive heart failure (< 1 month) History of inflammatory bowel disease Medical patient at bed rest Age 61-74 Arthroscopic surgery Major open surgery (> 45 min) Laparoscopic surgery (> 45 min) Malignancy Confined to bed (> 72 hours) Immobilizing plaster cast Central venous access Age >= 75 History of VTE Family history of VTE Factor V Leiden Prothrombin [id number] Lupus anticoagulant Anticardiolipin antibodies Elevated serum homocysteine Heparin-induced thrombocytopenia Other congenital or acquired thrombophilia Stroke (< 1 month) Elective arthroplasty Hip, pelvis, or leg fracture Acute spinal cord injury (< 1 month) Prophylaxis Regimen Total Risk Factor Score Risk Level Prophylaxis Regimen 0-1 Low Early ambulation 2 Moderate Order ONE of the following: *Sequential Compression Device (SCD) *Heparin 5000 units SQ BID 3-4 Higher Order ONE of the following medications: *Heparin 5000 units SQ TID *Enoxaparin/Lovenox 40 mg SQ daily (WT < 150 kg, CrCl > 30 mL/min) *Enoxaparin/Lovenox 30 mg SQ daily (WT < 150 kg, CrCl > 10-29 mL/min) *Enoxaparin/Lovenox 30 mg SQ BID (WT < 150 kg, CrCl > 30 mL/min) AND/OR *Sequential Compression Device (SCD) 5 or more Highest Order ONE of the following medications: *Heparin 5000 units SQ TID (Preferred with Epidurals) *Enoxaparin/Lovenox 40 mg SQ daily (WT < 150 kg, CrCl > 30 mL/min) *Enoxaparin/Lovenox 30 mg SQ daily (WT < 150 kg, CrCl > 10-29 mL/min) *Enoxaparin/Lovenox 30 mg SQ BID (WT < 150 kg, CrCl > 30 mL/min) AND *Sequential Compression Device (SCD) Assessment and Plan Assessment and Plan //Sepsis //Aspiration pneumonia = Leukocytosis of 17, tachycardia with heart rate of 100, Chest x-ray with right lower lobe infiltrate. Lactate 1.1 = Likely secondary to nausea/vomiting/constipation = We will treat with broad-spectrum antibiotics, Zosyn to cover for gram- negative, anaerobes, vancomycin to complete coverage for healthcare associated pneumonia and the patient was admitted last month = IV fluids. Monitor blood cultures. Continue to monitor. //Aspiration pneumonia. //Healthcare associated pneumonia //COPD exacerbation = Recent admission in December = Status post Solu-Medrol IV in the ER. Start on twice daily prednisone. = Duo nebs. = Consult pulmonology due to readmission. /Constipation = We will hold anticholinergic medications. = AP abdomen personally visualized with appears to be significant stool burden. = Laxatives ordered. Monitor. //Hypertension. Blood pressure comfortable. Hold lisinopril for now //She is on Erivedge. Uncertain for what malignancy. Will hold this for now due to nausea. //Continue home depression and antipsychotic medications. Discussed Condition With Patient, nurse, ED physician Physician Certification 2 Midnight Certification Type: Admission for Inpatient Services Order for Inpatient Services The services are ordered in accordance with Medicare regulations or non- Medicare payer requirements, as applicable. In the case of services not specified as inpatient-only, they are appropriately provided as inpatient services in accordance with the 2-midnight benchmark. Estimated LOS (days): 2 days is the estimated time the patient will need to remain in the hospital, assuming treatment plan goals are met and no additional complications. Post-Hospital Plan: Not yet determined Keagan Medrano MD Feb 11, 2018 16:06
[2018-02-11] MEDS ORDERED: VANCOMYCIN INJ 1,500 MG in SODIUM CHLORID 0.9% 500 ML INJ 500 ML IV SCH (17:00)
[2018-02-11 18:13] LABS: HEMOGLOBIN A1C 6.7 % (4.3-6.0)
[2018-02-11] MEDS: RESP: ALBUTEROL 2.5 MG/IPRATROPIUM 0.5 MG NEB (PRN) NEB (19:47)
[2018-02-11] MEDS ORDERED: MAGNESIUM HYDROXIDE SUSP 30 ML CUP PO PRN (21:00)
[2018-02-11] MEDS: SODIUM CHLORIDE 0.9% FLUSH 10 ML FLUSH IV FLUSH SCH (21:39)
[2018-02-11] MEDS: predniSONE 20 MG TAB PO SCH (21:40)
[2018-02-11] MEDS: MIRTAZAPINE 15 MG TAB PO SCH (21:40)
[2018-02-11] MEDS: risperiDONE 1 MG TAB PO SCH (21:40)
[2018-02-11] MEDS: BUDESONIDE-FORMOTEROL 160/4.5 MCG INHALER INH SCH (21:55)
[2018-02-12] VITALS (14 sets, daily range): BP systolic 122–156; BP diastolic 61–80; PULSE 69–94; RESP 17–18; TEMP 97.7–98; O2SAT 92–98
[2018-02-12] MEDS: PIPERACIL-TAZO 3.375 GM PREMIX 50 ML IV SCH ×5 (00:01→21:31)
[2018-02-12] MEDS: RESP: ALBUTEROL 2.5 MG/IPRATROPIUM 0.5 MG NEB (SCH) NEB ×3 (03:38→20:36)
[2018-02-12] MEDS: SODIUM CHLOR 0.45% 1000 ML INJ 1,000 ML IV SCH ×2 (04:32→16:59)
[2018-02-12 06:34] LABS: AUTOMATED NEUTROPHIL # 9.6 TH/MM3 (1.8-7.7); BASOPHIL % 0.4 % (0.0-2.0); HEMATOCRIT 30.3 % (35.0-46.0); HEMOGLOBIN 9.9 GM/DL (11.6-15.3); LYMPH % 6.5 % (9.0-44.0); LYMPHOCYTE # 0.7 TH/MM3 (1.0-4.8); MEAN CORPUSCULAR HEMOGLOBIN 27.1 PG (27.0-34.0); MEAN CORPUSCULAR HGB CONC 32.7 % (32.0-36.0); MEAN PLATELET VOLUME 7.8 FL (7.0-11.0); MONO % 3.7 % (0.0-8.0); MONOCYTE # 0.4 TH/MM3 (0-0.9); NEUT % 89.4 % (16.0-70.0); PLATELET COUNT 412 TH/MM3 (150-450); RED BLOOD COUNT 3.65 MIL/MM3 (4.00-5.30); RED CELL DISTRIBUTION WIDTH 16.7 % (11.6-17.2); WHITE BLOOD COUNT 10.7 TH/MM3 (4.0-11.0)
[2018-02-12 07:16] LABS: ALBUMIN 2.8 GM/DL (3.4-5.0); ALKALINE PHOSPHATASE 73 U/L (45-117); ALT (GPT) 10 U/L (10-53); AST (GOT) 12 U/L (15-37); BICARBONATE 24.6 MEQ/L (21.0-32.0); BLOOD UREA NITROGEN 19 MG/DL (7-18); CALCIUM 8.9 MG/DL (8.5-10.1); CHLORIDE 107 MEQ/L (98-107); CREATININE 0.82 MG/DL (0.50-1.00); GLOMERULAR FILTRATION RATE 70 ML/MIN (>89); GLUCOSE,RANDOM 286 MG/DL (74-106); SODIUM (NA) 141 MEQ/L (136-145); TOTAL BILIRUBIN ADULT 0.3 MG/DL (0.2-1.0); TOTAL PROTEIN 7.2 GM/DL (6.4-8.2)
--- NOTE | 2018-02-12 08:38 | MB ---
cc: Lavon Lopes MD DATE: 02/11/2018 REQUESTING PHYSICIAN: Dr. Medrano REASON FOR CONSULTATION: Evaluate for pneumonia and COPD. HISTORY OF PRESENT ILLNESS: Ms. Breaux is a 67-year-old female with history of COPD, schizophrenia, history of CVA and hypertension. She came to the hospital with history of shortness of breath. She has cough and congestion. Did not have any fever or chills. No night sweats. She complains of constipation. 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 She has some sinus drainage. With these symptoms, she came to the hospital. She had a workup done. Her chest x-ray shows she has patchy right basilar infiltrate. Total bilirubin is only 17.2, hemoglobin 9.6, hematocrit 30.3, MCV 81, platelet count 417. Sodium 130, potassium 4.2, chloride 106, CO2 24, BUN 22, creatinine 0.96. INR is 1.1. Blood cultures are negative. PAST MEDICAL HISTORY: Significant for history of COPD, hypertension, CVA, schizophrenia, gout, history of cancer of the nose. MEDICATIONS: She is currently taking Protonix 20 mg a day, Neurontin 300 mg a day, Symbicort 160/4.5 two puff every 12 hours, prednisone 20 mg twice a day, mirtazapine 7.5 mg at nighttime, Risperdal 4 mg every 12 hours, vancomycin IV, Zosyn q 6 hours, albuterol and Atrovent nebulizer treatment, Phenergan 12.5 mg every 4 hours p.r.n., Senokot q 12 hours. ALLERGIES: NO KNOWN DRUG ALLERGIES. SOCIAL HISTORY: She is single, has 3 children, lives in [place] and [place]. She has history of smoking in the past. FAMILY HISTORY: Noncontributory. REVIEW OF SYSTEMS: She denies any headache or dizziness. No seizure, stroke or epilepsy. No DVT or pulmonary embolism. PHYSICAL EXAMINATION: GENERAL: Shows MBMN female, not in acute distress. VITAL SIGNS: Blood pressure 131/70, heart rate 90, respirations 18, temperature 98. HEENT: Pupils are equal and round, reactive to light. Oral mucosa and nasal mucosa normal. NECK: Supple. JVP not raised. CHEST: Equal air entry bilaterally, has a few basilar rhonchi. CARDIOVASCULAR: S1, S2 are normal. ABDOMEN: Benign. EXTREMITIES: No edema. IMPRESSION: 1. Basilar infiltrate, likely pneumonia, possible aspiration. 2. Chronic obstructive pulmonary disease. 3. Schizophrenia. 4. Hypertension. PLAN: We will continue present antibiotic. Check her culture. Continue albuterol and Atrovent, Symbicort twice a day and supplement her oxygen. Monitor her CBC. Further treatment pending the course in the hospital. Thank you, Dr. Medrano, for this consult. MD CECILIA Mendoza/BRIDGER , 07:25 PM , 11:42 PM MTDAngie
[2018-02-12] MEDS: risperiDONE 1 MG TAB PO SCH ×2 (08:43→21:28)
[2018-02-12] MEDS: TRIHEXYPHENIDYL HCL 2 MG TAB PO SCH ×3 (08:43→21:28)
[2018-02-12] MEDS: SENNOSIDES 8.6 MG TAB PO SCH ×2 (08:44→08:48)
[2018-02-12] MEDS: SODIUM CHLORIDE 0.9% FLUSH 10 ML FLUSH IV FLUSH SCH ×2 (08:44→21:27)
[2018-02-12] MEDS: predniSONE 20 MG TAB PO SCH ×2 (08:44→21:35)
[2018-02-12] MEDS: GABAPENTIN 300 MG CAP PO SCH (08:44)
[2018-02-12] MEDS: PANTOPRAZOLE SOD 20 MG DELAYED RELEASE TAB PO SCH (08:44)
[2018-02-12] MEDS: BUDESONIDE-FORMOTEROL 160/4.5 MCG INHALER INH SCH ×2 (09:48→21:27)
--- NOTE | 2018-02-12 10:43 | HHI.PR ---
Subjective Remarks 67 YOWF with Schizophrenia, COPD,Pn No Fever Cough, minimal sputum Denies sob Objective Vital Signs Vital Signs Date Time Temp Pulse Resp B/P (MAP) Pulse Ox O2 Delivery O2 Flow Rate FiO2 02/12/18 08:53 98 21 02/12/18 08:04 97.9 79 17 122/61 (81) 97 02/12/18 07:50 87 02/12/18 04:04 97.8 91 18 138/74 (95) 95 02/12/18 03:52 90 02/12/18 00:06 97.7 94 17 156/80 (105) 94 02/11/18 23:55 90 02/11/18 20:30 99 02/11/18 20:04 97.8 96 17 142/70 (94) 94 02/11/18 20:00 Room Air 02/11/18 19:48 93 Nasal Cannula 02/11/18 17:13 97 Nasal Cannula 3.00 02/11/18 16:43 98.0 90 18 131/70 (90) 94 02/11/18 16:35 97.8 78 20 130/81 (97) 97 Nasal Cannula 2.00 02/11/18 14:18 97.9 100 20 132/62 (85) 96 Room Air 2.00 02/11/18 12:58 97.9 79 18 131/58 (82) 97 Room Air 02/11/18 12:45 89 20 96 Nasal Cannula 2.00 02/11/18 12:43 18 92 Room Air 02/11/18 12:43 96 Nasal Cannula 3.00 02/11/18 11:51 98.8 88 20 110/55 (73) 90 I/O 02/11/18 02/11/18 02/11/18 02/12/18 02/12/18 02/12/18 07:00 15:00 23:00 07:00 15:00 23:00 Intake Total 100 ml 1550 ml 240 ml Output Total 600 ml Balance 100 ml 1550 ml -360 ml Intake Oral 240 ml IV Total 100 ml 1550 ml Output Urine Total 600 ml # Voids 1 2 # Bowel Movements 0 0 Result Diagram: 02/12/18 0545 02/12/18 0545 Objective Remarks GENERAL: MBMN WF,NAD SKIN: Warm and dry. HEAD: Normocephalic. EYES: No scleral icterus. No injection or drainage. NECK: Supple, trachea midline. No JVD or lymphadenopathy. CARDIOVASCULAR: Regular rate and rhythm without murmurs, gallops, or rubs. RESPIRATORY: Breath sounds equal bilaterally. No accessory muscle use. GASTROINTESTINAL: Abdomen soft, non-tender, nondistended. MUSCULOSKELETAL: No cyanosis, or edema. BACK: Nontender without obvious deformity. No CVA tenderness. A/P Assessment and Plan IMPRESSION: 1. Basilar infiltrate, likely pneumonia, possible aspiration. 2. Chronic obstructive pulmonary disease. 3. Schizophrenia. 4. Hypertension. PLAN: Aerosol nebs Cont Abx Ba swallow study Stable on RA Lavon Lopes MD Feb 12, 2018 10:42
--- NOTE | 2018-02-12 10:49 | RADRPT ---
EXAM DATE: 02/12/2018 10:41 AM EDT AGE/SEX: 67 years / Female INDICATIONS: Dysphagia, evaluate aspiration CLINICAL DATA: This is the patient's subsequent encounter. Patient reports that signs and symptoms h ave been present for 2 days and indicates a pain score of 0/10. MEDICAL/SURGICAL HISTORY: Chronic obstructive pulmonary disease. Cardiovascular disease. Diab etes mellitus type II. pneumonia Hysterectomy. COMPARISON: [facility] – [place], CHEST PA & LAT, 02/11/2018. . FLUORO TIME: 1.3 IMAGE COUNT: 0 FINDINGS: A modified barium swallow was performed with speech pathology. Patient was given a variety of liquids to swallow. Minimal aspiration occurred with rapid sequential swallowing with thin liquids. Otherwis e, no aspiration is visualized. For a full detailed report, see report by the speech pathologist. CONCLUSION: Minimal aspiration did occur with rapid sequential swallowing with thin liquids. Please see speech pa thology report for further details. Electronically signed by: Yg Johnson MD 02/12/2018 10:48 AM EDT
--- NOTE | 2018-02-12 13:02 | HHI.PR ---
Subjective Remarks Patient has no complaints. States that she has difficulty coughing up her phlegm however she feels better. Denies any chest pain, worsening shortness of breath, nausea or vomiting I spoke with patient's speech therapist and she did review the modified barium swallow and there is silent aspiration. She did educate the patient and has changed her diet to nectar thick and patient has done well. Objective Vitals Vital Signs Date Time Temp Pulse Resp B/P (MAP) Pulse Ox O2 Delivery O2 Flow Rate FiO2 02/12/18 12:04 97.9 85 17 130/64 (86) 96 02/12/18 08:53 98 21 02/12/18 08:04 97.9 79 17 122/61 (81) 97 02/12/18 07:50 87 02/12/18 04:04 97.8 91 18 138/74 (95) 95 02/12/18 03:52 90 02/12/18 00:06 97.7 94 17 156/80 (105) 94 02/11/18 23:55 90 02/11/18 20:30 99 02/11/18 20:04 97.8 96 17 142/70 (94) 94 02/11/18 20:00 Room Air 02/11/18 19:48 93 Nasal Cannula 02/11/18 17:13 97 Nasal Cannula 3.00 02/11/18 16:43 98.0 90 18 131/70 (90) 94 02/11/18 16:35 97.8 78 20 130/81 (97) 97 Nasal Cannula 2.00 02/11/18 14:18 97.9 100 20 132/62 (85) 96 Room Air 2.00 02/11/18 12:58 97.9 79 18 131/58 (82) 97 Room Air I/O 02/11/18 02/11/18 02/11/18 02/12/18 02/12/18 02/12/18 07:00 15:00 23:00 07:00 15:00 23:00 Intake Total 100 ml 1550 ml 240 ml Output Total 600 ml Balance 100 ml 1550 ml -360 ml Intake Oral 240 ml IV Total 100 ml 1550 ml Output Urine Total 600 ml # Voids 1 2 # Bowel Movements 0 0 Result Diagram: 02/12/18 0545 02/12/18 0545 Imaging Last Impressions Modified Barium Swallow 02/12/18 0000 Signed Impressions: CONCLUSION: Minimal aspiration did occur with rapid sequential swallowing with thin liquids . Please see speech pathology report for further details. Chest X-Ray 02/11/18 1153 Signed Impressions: CONCLUSION: Patchy right basilar airspace disease. Differential diagnosis includes bronchop neumonia and aspiration. Abdomen X-Ray 02/11/18 0000 Signed Impressions: CONCLUSION: Moderate stool as above. Objective Remarks GENERAL: Sitting up on recliner. Appears comfortable. CARDIOVASCULAR: Regular rate and rhythm without murmurs, gallops, or rubs. RESPIRATORY: At this time no wheezing or crackles auscultated. GASTROINTESTINAL: Abdomen soft, non-tender, nondistended. No guarding. MUSCULOSKELETAL: Extremities without edema. A/P Assessment and Plan //Sepsis //Aspiration pneumonia = Leukocytosis of 17, tachycardia with heart rate of 100, Chest x-ray with right lower lobe infiltrate. Lactate 1.1 = Likely secondary to nausea/vomiting/constipation = Currently on vancomycin and Zosyn. With pharmacy consult for the vancomycin. = IV fluids. Blood cultures negative 1 day. Continue to monitor. //Aspiration pneumonia. //Healthcare associated pneumonia //COPD exacerbation = Recent admission in December = Status post Solu-Medrol IV in the ER. Start on twice daily prednisone. = Duo nebs. = Pulmonology consulted and following. Modified barium swallow eval performed and shows Minimal aspiration did occur with rapid sequential swallowing with thin liquids. That has been switched to nectar thick. Speech therapy following as well. Appreciate assistance /Constipation = We will hold anticholinergic medications. = AP abdomen personally visualized with appears to be significant stool burden. = Laxatives ordered. Monitor. //Hypertension. Blood pressure comfortable. Hold lisinopril for now //She is on Erivedge. Uncertain for what malignancy. Will hold this for now due to nausea. //Continue home depression and antipsychotic medications. Discharge Planning Patient did have aspiration in her modified barium swallow eval. Speech therapy is working with her. Follow blood cultures until final. Anticipate discharge in 1-2 days. Tri Baker MD Feb 12, 2018 13:02
[2018-02-12] MEDS: MIRTAZAPINE 15 MG TAB PO SCH (21:28)
[2018-02-13] VITALS (14 sets, daily range): BP systolic 141–169; BP diastolic 64–84; PULSE 73–108; RESP 16–20; TEMP 97.8–98.6; O2SAT 92–98
[2018-02-13] MEDS: RESP: ALBUTEROL 2.5 MG/IPRATROPIUM 0.5 MG NEB (SCH) NEB ×4 (03:35→19:33)
[2018-02-13] MEDS: PIPERACIL-TAZO 3.375 GM PREMIX 50 ML IV SCH ×4 (04:00→22:10)
[2018-02-13] MEDS: SODIUM CHLOR 0.45% 1000 ML INJ 1,000 ML IV SCH (04:24)
[2018-02-13] MEDS: predniSONE 20 MG TAB PO SCH ×2 (09:38→22:10)
[2018-02-13] MEDS: SENNOSIDES 8.6 MG TAB PO SCH (09:38)
[2018-02-13] MEDS: risperiDONE 1 MG TAB PO SCH ×2 (09:38→22:09)
[2018-02-13] MEDS: GABAPENTIN 300 MG CAP PO SCH (09:38)
[2018-02-13] MEDS: TRIHEXYPHENIDYL HCL 2 MG TAB PO SCH ×2 (09:38→22:10)
[2018-02-13] MEDS: PANTOPRAZOLE SOD 20 MG DELAYED RELEASE TAB PO SCH (09:38)
[2018-02-13] MEDS: SODIUM CHLORIDE 0.9% FLUSH 10 ML FLUSH IV FLUSH SCH ×2 (09:39→22:10)
[2018-02-13] MEDS: BUDESONIDE-FORMOTEROL 160/4.5 MCG INHALER INH SCH ×2 (09:41→21:00)
--- NOTE | 2018-02-13 09:55 | HHI.PR ---
Subjective Remarks Patient states her breathing is better. NO chest pain. DW speech therapist. She requires nectar thickened liquids. Objective Vitals Vital Signs Date Time Temp Pulse Resp B/P (MAP) Pulse Ox O2 Delivery O2 Flow Rate FiO2 02/13/18 09:46 96 21 02/13/18 08:15 98.2 73 20 169/82 (111) 94 02/13/18 04:03 97.8 89 18 162/81 (108) 98 02/13/18 04:03 97.8 89 18 162/81 (108) 98 02/13/18 03:55 82 02/13/18 03:39 94 Nasal Cannula 1.00 02/13/18 00:03 97.8 89 18 162/81 (108) 98 02/12/18 23:39 69 02/12/18 20:38 94 Nasal Cannula 1.00 02/12/18 20:03 98.0 88 17 147/74 (98) 96 02/12/18 20:00 Room Air 02/12/18 19:43 82 02/12/18 16:04 97.8 85 18 128/64 (85) 92 02/12/18 16:01 91 02/12/18 12:04 97.9 85 17 130/64 (86) 96 02/12/18 12:00 85 I/O 02/12/18 02/12/18 02/12/18 02/13/18 02/13/18 02/13/18 07:00 15:00 23:00 07:00 15:00 23:00 Intake Total 240 ml 480 ml 240 ml Output Total 600 ml Balance -360 ml 480 ml 240 ml Intake Oral 240 ml 480 ml 240 ml Output Urine Total 600 ml # Voids 2 3 # Bowel Movements 0 1 Result Diagram: 02/12/18 0545 02/12/18 0545 Objective Remarks GENERAL: This is a well-nourished, well-developed patient, in no apparent distress. CARDIOVASCULAR: Normal rate and regular rhythm without murmurs, gallops, or rubs. RESPIRATORY: Good respiratory efforts. Diminished breath sounds at the bases. Faint rhonchi on the right side. GASTROINTESTINAL: Abdomen soft, non-tender, non-distended. Normal active bowel sounds MUSCULOSKELETAL: Extremities without cyanosis, or edema. NEURO: Alert & Oriented x4 to person, place, time, situation. Moves all ext x4 PSYCH: Appropriate mood and affect. A/P Assessment and Plan 67-year-old female with: Sepsis Aspiration pneumonia - Leukocytosis of 17, tachycardia with heart rate of 100, Chest x-ray with right lower lobe infiltrate on presentation - Speech therapy following. Patient noted to have microaspiration on barium swallow. Diet changed to nectar thickened liquid. - Start downgrade antibiotics. Discontinue vancomycin. Continue Zosyn. Plan to transition to Augmentin tomorrow if blood cultures remain negative.. - Follow blood cultures for 1 more day. Aspiration pneumonia. Healthcare associated pneumonia COPD exacerbation - Recent admission in December -Continue twice daily prednisone. - Dlo aminah. - Pulmonology consulted and following. Modified barium swallow eval performed and shows Minimal aspiration did occur with rapid sequential swallowing with thin liquids. That has been switched to nectar thick. Speech therapy following as well. Appreciate assistance Constipation - We will hold anticholinergic medications. - AP abdomen personally visualized with appears to be significant stool burden. - Laxatives ordered. Monitor. Hypertension. Blood pressure comfortable. Hold lisinopril for now Continue home depression and antipsychotic medications. Discharge Planning Probable discharge tomorrow. Patient will require home health with speech therapy. Scooby Clark MD Feb 13, 2018 09:55
[2018-02-13 10:38] LABS: CREATININE 0.88 MG/DL (0.50-1.00)
--- NOTE | 2018-02-13 13:39 | HHI.FF ---
Face to Face Verification Diagnosis: (1) Dysphagia, oropharyngeal (2) Aspiration pneumonia (3) Sepsis Speech Therapy Order: To Improve: Swallowing Home Health Nursing Order: Medical education Signs/symptoms of disease process Nursing assessment with vital signs I have seen patient Marycarmen Breaux on 02/13/18. My clinical findings support the need for the requested home health care services because: Limited ability to care for self Need for psychosocial assistance I certify that my clinical findings support that this patient is homebound because: Need for psychosocial assistance Scooby Clark MD Feb 13, 2018 13:39
--- NOTE | 2018-02-13 16:50 | HHI.PR ---
Subjective Remarks 67 YOWF with Schizophrenia, COPD,Pn No Fever Cough, minimal sputum Denies sob Ba swallow done [employer]--mild oropharyngeal dysphagia Objective Vital Signs Vital Signs Date Time Temp Pulse Resp B/P (MAP) Pulse Ox O2 Delivery O2 Flow Rate FiO2 02/13/18 15:55 98.6 79 20 167/84 (111) 95 02/13/18 12:04 98.2 82 20 152/72 (98) 97 02/13/18 09:46 96 21 02/13/18 08:15 98.2 73 20 169/82 (111) 94 02/13/18 08:00 Nasal Cannula 2.00 21 02/13/18 04:03 97.8 89 18 162/81 (108) 98 02/13/18 04:03 97.8 89 18 162/81 (108) 98 02/13/18 03:55 82 02/13/18 03:39 94 Nasal Cannula 1.00 02/13/18 00:03 97.8 89 18 162/81 (108) 98 02/12/18 23:39 69 02/12/18 20:38 94 Nasal Cannula 1.00 02/12/18 20:03 98.0 88 17 147/74 (98) 96 02/12/18 20:00 Room Air 02/12/18 19:43 82 I/O 02/12/18 02/12/18 02/12/18 02/13/18 02/13/18 02/13/18 07:00 15:00 23:00 07:00 15:00 23:00 Intake Total 240 ml 480 ml 240 ml Output Total 600 ml Balance -360 ml 480 ml 240 ml Intake Oral 240 ml 480 ml 240 ml Output Urine Total 600 ml # Voids 2 3 # Bowel Movements 0 1 Result Diagram: 02/12/18 0545 02/13/18 0815 Objective Remarks GENERAL: MBMN WF,NAD SKIN: Warm and dry. HEAD: Normocephalic. EYES: No scleral icterus. No injection or drainage. NECK: Supple, trachea midline. No JVD or lymphadenopathy. CARDIOVASCULAR: Regular rate and rhythm without murmurs, gallops, or rubs. RESPIRATORY: Breath sounds equal bilaterally. No accessory muscle use. GASTROINTESTINAL: Abdomen soft, non-tender, nondistended. MUSCULOSKELETAL: No cyanosis, or edema. BACK: Nontender without obvious deformity. No CVA tenderness. A/P Assessment and Plan IMPRESSION: 1. Basilar infiltrate, likely pneumonia, possible aspiration. 2. Chronic obstructive pulmonary disease. 3. Schizophrenia. 4. Hypertension. PLAN: Aerosol nebs Cont Abx Pureed diet with nector thick liq Stable on RA Lavon Lopes MD Feb 13, 2018 16:50
[2018-02-13] MEDS: ENALAPRILAT 1.25 MG/ML VIAL IV PUSH PRN (16:54)
[2018-02-13] MEDS ORDERED: AUGM875T3 PO (21:49)
[2018-02-13] MEDS ORDERED: PRED10PA PO (21:50)
[2018-02-13] MEDS: MIRTAZAPINE 15 MG TAB PO SCH (22:10)
[2018-02-14] VITALS: BP 152/67; PULSE 107; PULSE 61; RESP 16; TEMP 98; O2SAT 92
[2018-02-14 03:35] VITALS: BP 176/72; PULSE 72; RESP 16; TEMP 98; O2SAT 91
[2018-02-14] MEDS: RESP: ALBUTEROL 2.5 MG/IPRATROPIUM 0.5 MG NEB (SCH) NEB (03:42)
[2018-02-14 04:00] VITALS: PULSE 64
[2018-02-14] MEDS: PIPERACIL-TAZO 3.375 GM PREMIX 50 ML IV SCH ×2 (04:00→09:02)
[2018-02-14] MEDS: ENALAPRILAT 1.25 MG/ML VIAL IV PUSH PRN (06:04)
[2018-02-14 07:53] VITALS: PULSE 94
[2018-02-14 08:12] VITALS: BP 156/82; PULSE 73; RESP 20; TEMP 98.1; O2SAT 95
--- NOTE | 2018-02-14 08:35 | HHI.DS ---
Discharge Summary Admission Date Feb 11, 2018 at 14:13 Discharge Date: Feb 14, 2018 Admitting Diagnosis Right lower lobe pneumonia, leukocytosis, sepsis (1) Aspiration pneumonia ICD Code: J69.0 - Pneumonitis due to inhalation of food and vomit (2) Dysphagia, oropharyngeal ICD Code: R13.12 - Dysphagia, oropharyngeal phase (3) Sepsis ICD Code: A41.9 - Sepsis, unspecified organism Status: Acute Procedures None Brief History - From Admission HPI from the admitting physician 67-year-old female with COPD, hypertension,GERD who presents with a 3 day history of worsening dry cough, 1 day history of shortness of breath. Patient reports nausea and vomiting for 1 day, with nonbloody vomiting yesterday. She says she believes this is secondary to worsening chronic constipation with no bowel movement over the past week. She denies any abdominal pain. She denies any nausea at this time. Denies any difficulty swallowing. Denies any chest pain, sore throat, sinus drainage. Previous admission noted last month where she was treated for pneumonia. CBC/BMP: 02/12/18 0545 02/13/18 0815 Significant Findings Laboratory Tests Test 02/11/18 12:00 02/11/18 12:41 02/11/18 15:43 02/12/18 04:30 White Blood Count 17.2 TH/MM3 (4.0-11.0) Red Blood Count 3.71 MIL/MM3 (4.00-5.30) Hemoglobin 9.6 GM/DL (11.6-15.3) Hematocrit 30.3 % (35.0-46.0) Mean Corpuscular Hemoglobin 26.0 PG (27.0-34.0) Mean Corpuscular Hemoglobin Concent 31.9 % (32.0-36.0) Neutrophils (%) (Auto) 84.7 % (16.0-70.0) Lymphocytes (%) (Auto) 6.6 % (9.0-44.0) Neutrophils # (Auto) 14.6 TH/MM3 (1.8-7.7) Monocytes # (Auto) 1.2 TH/MM3 (0-0.9) Blood Urea Nitrogen 22 MG/DL (7-18) Random Glucose 172 MG/DL (74-106) Estimat Glomerular Filtration Rate 58 ML/MIN (>89) Troponin I LESS THAN 0.02 NG/ML Hemoglobin A1c 6.7 % (4.3-6.0) Test 02/12/18 05:45 02/13/18 08:15 Red Blood Count 3.65 MIL/MM3 (4.00-5.30) Hemoglobin 9.9 GM/DL (11.6-15.3) Hematocrit 30.3 % (35.0-46.0) Neutrophils (%) (Auto) 89.4 % (16.0-70.0) Lymphocytes (%) (Auto) 6.5 % (9.0-44.0) Neutrophils # (Auto) 9.6 TH/MM3 (1.8-7.7) Lymphocytes # (Auto) 0.7 TH/MM3 (1.0-4.8) Blood Urea Nitrogen 19 MG/DL (7-18) Random Glucose 286 MG/DL (74-106) Albumin 2.8 GM/DL (3.4-5.0) Aspartate Amino Transf (AST/SGOT) 12 U/L (15-37) Estimat Glomerular Filtration Rate 70 ML/MIN (>89) 64 ML/MIN (>89) Imaging Last Impressions Modified Barium Swallow 02/12/18 0000 Signed Impressions: CONCLUSION: Minimal aspiration did occur with rapid sequential swallowing with thin liquids . Please see speech pathology report for further details. Chest X-Ray 02/11/18 1153 Signed Impressions: CONCLUSION: Patchy right basilar airspace disease. Differential diagnosis includes bronchop neumonia and aspiration. Abdomen X-Ray 02/11/18 0000 Signed Impressions: CONCLUSION: Moderate stool as above. PE at Discharge GENERAL: This is a well-nourished, well-developed patient, in no apparent distress. CARDIOVASCULAR: Normal rate and regular rhythm without murmurs, gallops, or rubs. RESPIRATORY: Good respiratory efforts. Diminished breath sounds at the bases. Faint rhonchi on the right side. GASTROINTESTINAL: Abdomen soft, non-tender, non-distended. Normal active bowel sounds MUSCULOSKELETAL: Extremities without cyanosis, or edema. NEURO: Alert & Oriented x4 to person, place, time, situation. Moves all ext x4 PSYCH: Appropriate mood and affect. Pt update on day of discharge Patient reports she is feeling much better. She wants to go home. Breathing more comfortably. We discussed the need to adhere to the diet as recommended by speech therapy, nectar thickened liquid. Hospital Course 67-year-old female admitted and treated for aspiration pneumonia. Patient was treated with broad-spectrum antibiotics including vancomycin and Zosyn. A barium swallow performed showed minimal aspiration. Her diet was changed to nectar thickened liquids. No further evidence of aspiration. Patient is discharged home on Augmentin to complete the course of treatment. Patient is discharged with home health and speech therapy to continue to work on improving swallowing. Other conditions treated include: Hypertension. Blood pressure stable. Continue home medications Continue home depression and antipsychotic medications. Pt Condition on Discharge: Good Discharge Disposition: Disch w/ Home Health Serv Discharge Time: > 30 minutes Discharge Instructions DIET: Follow Instructions for: Heart Healthy Diet Speech Therapy-Diet Recommends: [place] Thickened Liquids Activities you can perform: Regular-No Restrictions Follow up Referrals: PCP Follow-up SNF/PRISCILA/HH with [facility] New Medications: Amoxicillin-Clavulanate (Augmentin) 875-125 Mg Tab 1 TAB PO BID for Infection, #10 TAB 0 Refills Prednisone (21) 10 mg tab Dose Pack (Prednisone (21) 10 mg tab Dose Pack) 10 Mg Pack 10 MG PO DIRECTED for Inflammation, #1 DSPK 0 Refills Continued Medications: Albuterol 18 GM Inh (Ventolin Hfa 18 GM Inh) 90 Mcg/Act Aer 2 PUFF INH Q4-6H PRN for SHORTNESS OF BREATH, #1 INHALER 0 Refills Budesonide-Formoterol Inh (Symbicort Inh) 160-4.5 Mcg/Act Aero 2 PUFF INH Q12HR, #1 INHALER 0 Refills Gabapentin (Gabapentin) 300 Mg Cap 300 MG PO DAILY, #30 CAP 0 Refills Lisinopril (Lisinopril) 10 Mg Tab 10 MG PO DAILY, #30 TAB 0 Refills Mirtazapine (Mirtazapine) 7.5 Mg Tab 7.5 MG PO HS for Depression Control, #30 TAB 0 Refills Pantoprazole (Protonix) 20 Mg Tab 20 MG PO DAILY for Reflux, #30 TAB 0 Refills Risperidone (Risperidone) 4 Mg Tab 4 MG PO Q12HR, #60 TAB 0 Refills Sennosides (Senna-Tabs) 8.6 Mg Tab 8.6 MG PO DAILY for Constipation, #30 TAB 0 Refills Trihexyphenidyl (Trihexyphenidyl) 2 Mg Tab 2 MG PO BID for Parkinson Disease Mgmt, #60 TAB 0 Refills Vismodegib (Erivedge) 150 Mg Cap 1 CAP PO DAILY Discontinued Medications: Cefuroxime (Ceftin) 250 Mg Tab 250 MG PO BID for pneumonia, #7 TAB Docusate Sodium (Docusate Sodium) 100 Mg Cap 100 MG PO HS PRN for CONSTIPATION, #60 CAP 0 Refills Fluoxetine (Fluoxetine) 20 Mg Capsule 20 MG PO DAILY PRN for AGITATION AND/OR HALLUCINATION, #30 CAP 0 Refills Hydroxyzine HCl (Hydroxyzine HCl) 25 Mg Tab 25 MG PO BID, TAB 0 Refills Meloxicam (Meloxicam) 7.5 Mg Tab 7.5 MG PO DAILY for Arthritis Pain, TAB 0 Refills Mirabegron (Myrbetriq) 25 Mg Tab 25 MG PO HS PRN for BLADDER SPASM, #30 TAB 0 Refills Scooby Clark MD Feb 14, 2018 08:35
[2018-02-14] MEDS: SENNOSIDES 8.6 MG TAB PO SCH (08:53)
[2018-02-14] MEDS: TRIHEXYPHENIDYL HCL 2 MG TAB PO SCH (08:53)
[2018-02-14] MEDS: SODIUM CHLORIDE 0.9% FLUSH 10 ML FLUSH IV FLUSH SCH (08:53)
[2018-02-14] MEDS: predniSONE 20 MG TAB PO SCH (08:53)
[2018-02-14] MEDS: PANTOPRAZOLE SOD 20 MG DELAYED RELEASE TAB PO SCH (08:53)
[2018-02-14] MEDS: risperiDONE 1 MG TAB PO SCH (08:53)
[2018-02-14] MEDS: GABAPENTIN 300 MG CAP PO SCH (08:53)
[2018-02-14] MEDS: BUDESONIDE-FORMOTEROL 160/4.5 MCG INHALER INH SCH (08:54)
[2018-02-14] MEDS: RESP: ALBUTEROL 2.5 MG/IPRATROPIUM 0.5 MG NEB (PRN) NEB (09:04)
[2018-02-14 09:05] VITALS: O2SAT 98
[2018-02-14] MEDS ORDERED: PHARMACY ORDERED LAB ONE (16:45)
== END 2018-02-14 12:44 | DRG 871 ==
LOC: NEPC 11:44 → NEDA 14:13 → N04A 16:44
PROVIDERS: ADMIT Family Medicine; ATTEND Family Medicine
DX: A41.9 Sepsis, unspecified organism (principal); J69.0 Pneumonitis due to inhalation of food and vomit; J18.9 Pneumonia, unspecified organism; J44.0 Chronic obstructive pulmonary disease with (acute) lower respiratory infection; Z99.81 Dependence on supplemental oxygen; J44.1 Chronic obstructive pulmonary disease with (acute) exacerbation; R13.12 Dysphagia, oropharyngeal phase; I25.10 Atherosclerotic heart disease of native coronary artery without angina pectoris; E11.9 Type 2 diabetes mellitus without complications; F17.200 Nicotine dependence, unspecified, uncomplicated; K21.9 Gastro-esophageal reflux disease without esophagitis; E78.00 Pure hypercholesterolemia, unspecified; F20.9 Schizophrenia, unspecified; R09.02 Hypoxemia; Y95 Nosocomial condition; I10 Essential (primary) hypertension; R00.0 Tachycardia, unspecified; K59.09 Other constipation; F32.9 Major depressive disorder, single episode, unspecified; M10.9 Gout, unspecified; Z86.73 Personal history of transient ischemic attack (TIA), and cerebral infarction without residual deficits; Z87.01 Personal history of pneumonia (recurrent)
CPT/HCPCS: 71046; 74018; 74230; 80048; 80053; 80307; 82550; 82552; 82565; 83036; 83605; 84484; 85025; 85610; 85730; 87040; 93005; 94150; 94640; 94664; 94667; 94668; 96365; 96367; 96375; J0456; J0692; J2543; J2930; J3370; J7030; J7040; J7050; J7512

== ENCOUNTER 2018-02-27 09:01 | Inpatient (IN) ==
[2018-02-27] MEDS ORDERED: Sod Chloride 0.9% Inj 1,000 ML IV.SIG ONE ×2 (09:33→13:44)
--- NOTE | 2018-02-27 09:36 | ED ---
HPI General Chief Complaint: Respiratory Symptoms Stated Complaint: Sob/Evac Time Seen by Provider: 02/27/18 09:16 Source: patient Mode of arrival: EMS Limitations: other (Poor historian with mild confusion) History of Present Illness The patient is a 67-year-old female who presents to the emergency department from an assisted living facility for shortness of breath. According to EMS the patient's oxygen saturation on room air was 78%. The patient was recently hospitalized for pneumonitis from aspiration and was discharged back to the assisted living facility. The patient does have a remote history of smoking, however, she denies any history of COPD. The patient is a somewhat limited historian and is able to tell me the years 2017 but cannot tell me the current month and thinks that president Samantha is still president. The patient denies any shortness of breath, chest pain, nausea, vomiting, or abdominal pain. The patient states she was sent to the emergency department for "twitching". MD Complaint: shortness of breath Related Data Home Medications Medication Instructions Recorded Confirmed albuterol sulfate [Ventolin HFA] 2 puff INHALATION Q4-6H PRN 02/27/18 02/27/18 amoxicillin-pot clavulanate 1 tab PO Q12H 02/27/18 02/27/18 budesonide-formoterol [Symbicort] 2 puff INHALATION BID 02/27/18 02/27/18 famotidine [Pepcid] 20 mg PO DAILY 02/27/18 02/27/18 fluoxetine 20 mg PO DAILY 02/27/18 02/27/18 gabapentin 300 mg PO DAILY 02/27/18 02/27/18 hydroxyzine pamoate [Vistaril] 25 mg PO BID PRN 02/27/18 02/27/18 ipratropium-albuterol 3 ml INHALATION QID 02/27/18 02/27/18 lisinopril 10 mg PO DAILY 02/27/18 02/27/18 meloxicam 7.5 mg PO DAILY 02/27/18 02/27/18 mirtazapine 30 mg PO HS 02/27/18 02/27/18 ondansetron HCl [Zofran] 4 mg PO BID PRN 02/27/18 02/27/18 pantoprazole 20 mg PO DAILY 02/27/18 02/27/18 risperidone 4 mg PO DAILY 02/27/18 02/27/18 sennosides [senna] 8.6 mg PO HS PRN 02/27/18 02/27/18 trihexyphenidyl 2 mg PO BID 02/27/18 02/27/18 Allergies Allergy/AdvReac Type Severity Reaction Status Date / Time No Known Allergies Allergy Verified 02/27/18 10:48 Review of Systems ROS Unobtainable other (Poor historian) Except as stated in HPI: all other systems reviewed are negative [facility] Medical History Medical History COPD (chronic obstructive pulmonary disease) (Acute) CVA (cerebral vascular accident) (Acute) Dementia (Acute) GERD (gastroesophageal reflux disease) (Acute) Schizencephalic porencephaly (Acute) Schizophrenia (Acute) Smoker (Acute) Surgical History Surgical History No history of previous surgery (Acute) Social History Social History Substance History: No History of Abuse Second Hand Smoke Exposure: Yes Smoking Status: Current every day smoker Tobacco Type: Cigarettes How Often Do You Have a Drink Containing Alcohol: Never Recent Travel in [facility] within the Last 8 Weeks: No Recent Out of Country Travel within the Last 8 Weeks: No Exam Narrative Exam Narrative: GENERAL: Awake, alert, pleasant 67-year-old female who appears her stated age and is on a nonrebreather. SKIN: Focused skin assessment warm/dry. HEAD: Atraumatic. Normocephalic. EYES: No injection or drainage. ENT: No nasal bleeding or discharge. Mucous membranes pink and moist. NECK: Trachea midline. No JVD. CARDIOVASCULAR: Regular, tachycardic with a heart rate of 115. RESPIRATORY: Mild tachypnea with a respiratory rate of 22. Diminished breath sounds in the right base. GASTROINTESTINAL: Abdomen soft, non-tender, nondistended. Well-healed midline upper abdominal scar. Stria present bilaterally on the lower abdomen. MUSCULOSKELETAL: No obvious deformities. No clubbing. No cyanosis. No edema. NEUROLOGICAL: Awake and alert. No obvious cranial nerve deficits. Motor grossly within normal limits. Normal speech. Nonfocal. Follows commands. Oriented to person, year, and date of . Did not know the current month or liability claims manager. PSYCHIATRIC: Appropriate mood and affect; insight and judgment normal. Course Initial Documented Vital Signs Temperature 99.4 F 02/27/18 09:08 Pulse Rate 115 H 02/27/18 09:08 Respiratory Rate 18 02/27/18 09:08 Blood Pressure 96/54 L 02/27/18 09:08 Pulse Oximetry 98 02/27/18 09:08 Last Documented Vital Signs Temperature 98.4 F 02/27/18 11:00 Pulse Rate 94 H 02/27/18 11:00 Respiratory Rate 20 02/27/18 11:00 Blood Pressure 102/65 02/27/18 11:00 Pulse Oximetry 100 02/27/18 11:00 Medical Decision Making MDM Narrative Medical decision making narrative: IV was established, labs are drawn and sent, and the patient was placed on cardiac telemetry monitoring and continuous pulse oximetry monitoring. EKG was ordered and interpreted. Chest x-ray is obtained. The patient was administered duo nebs 2. Blood cultures and lactic acid were sent to lab. The patient's lactic acid is slightly elevated at 2.3. White count is unremarkable. Chest x-ray does reveal bibasilar disease consistent with pneumonia. The patient did have a temperature upon reevaluation of 99.8. The patient was covered with antibiotics, I attempted to wean the patient off of oxygen, however, she would desat into the mid 80s. Therefore, the patient was placed back on 4 L of oxygen which brought her oxygen saturation sent. Therefore, the on-call medical service was paged for admission. Differential Diagnosis Differential Diagnosis: Differential diagnosis includes COPD exacerbation, bronchitis, pneumonia, pleural effusion, acute coronary syndrome, pulmonary embolism, sepsis. Medical Records Medical records reviewed: Yes I reviewed the patient's medical records. I reviewed the patient's EMR, she was hospitalized in January for aspiration pneumonia and underwent a barium swallow at that time with a change in her diet to nectar thick diet. Lab Data Lab results reviewed: Yes I reviewed the patient's lab results. Lab results narrative: White count normal, lactic acid 2.3 Result diagrams: 02/27/18 09:41 02/27/18 09:41 Lab Results 02/27/18 02/27/18 02/27/18 Range/Units 09:41 09:41 09:41 WBC 8.8 (4.0-11.0) th/mm3 RBC 3.66 L (4.00-5.30) mil/mm3 Hgb 9.9 L (11.6-15.3) gm/dL Hct 30.5 L (35.0-46.0) % MCV 83.4 (80.0-100.0) fL MCH 26.9 L (27.0-34.0) pg MCHC 32.3 (32.0-36.0) % RDW 17.0 (11.6-17.2) % Plt Count 250 (150-450) th/mm3 MPV 8.6 (7.0-11.0) fL Prelim Diff (Auto) Slide review pending Neut % (Auto) 88.2 H (16.0-70.0) % Lymph % (Auto) 2.9 L (9.0-44.0) % [place] % (Auto) 8.4 H (0.0-8.0) % Eos % (Auto) 0.2 (0.0-4.0) % Baso % (Auto) 0.3 (0.0-2.0) % Neut # (Auto) 7.7 (1.8-7.7) th/mm3 Lymph # (Auto) 0.3 L (1.0-4.8) th/mm3 [place] # (Auto) 0.7 (0.0-0.9) th/mm3 Eos # (Auto) 0.0 (0.0-0.4) th/mm3 Baso # (Auto) 0.0 (0.0-0.2) th/mm3 WBC Differential Manual diff final Seg Neuts % (Manual) 68 (16-70) % Band Neuts % (Manual) 27 H (0-6) % Lymphocytes % (Manual) 1 L (9-44) % Monocytes % (Manual) 2 (0-8) % Metamyelocytes % (Man) 2 H (0-1) % Abs Neuts (Manual) 8.5 H (1.8-7.7) th/mm3 Differential Comment . Platelet Estimate Normal (Normal) Platelet Morphology Normal (Normal) RBC Morphology Normal (Normal) PT 10.3 (9.8-11.6) sec INR 1.0 Ratio APTT 20.6 L (24.3-30.1) sec Sodium 143 (136-145) meq/L Potassium 4.3 (3.5-5.1) meq/L Chloride 113 H (98-107) meq/L Carbon Dioxide 20.4 L (21.0-32.0) meq/L Anion Gap 10 (5-15) meq/L BUN 46 H (7-18) mg/dL Creatinine 1.44 H (0.50-1.00) mg/dL Estimated GFR 36 L (>89) mL/min Random Glucose 237 H (74-106) mg/dL Lactic Acid (0.4-2.0) mmol/L Calcium 8.7 (8.5-10.1) mg/dL Magnesium 1.4 L (1.5-2.5) mg/dL Total Bilirubin 0.6 (0.2-1.0) mg/dL AST 8 L (15-37) U/L ALT 16 (10-53) U/L Alkaline Phosphatase 65 (45-117) U/L Total Creatine Kinase 31 (26-192) U/L Troponin I Less than 0.02 L (0.02-0.05) ng/mL B-Natriuretic Peptide (0-100) pg/mL Total Protein 6.1 L (6.4-8.2) g/dL Albumin 2.5 L (3.4-5.0) g/dL Urine Color (Yellw/Straw) Urine Clarity (Clear) Urine pH (5.0-8.5) Ur Specific [place] (1.002-1.035) Urine Protein (Neg-Trace) mg/dL Urine Glucose (UA) (Negative) mg/dL Urine Ketones (Negative) mg/dL Urine Occult Blood (Negative) Urine Nitrate (Negative) Urine Bilirubin (Negative) Urine Urobilinogen (Less than 2) mg/dL Ur Leukocyte Esterase (Negative) Urine RBC (0-3) /hpf Urine WBC (0-5) /hpf Ur Squamous Epith Cells (0-5) /hpf Urine Bacteria (None) /hpf Urine Mucus (Occasional) /lpf Urine Yeast (None) /hpf Micro UA Comment Urine Culture Comments 02/27/18 02/27/18 02/27/18 Range/Units 09:41 09:41 12:00 WBC (4.0-11.0) th/mm3 RBC (4.00-5.30) mil/mm3 Hgb (11.6-15.3) gm/dL Hct (35.0-46.0) % MCV (80.0-100.0) fL MCH (27.0-34.0) pg MCHC (32.0-36.0) % RDW (11.6-17.2) % Plt Count (150-450) th/mm3 MPV (7.0-11.0) fL Prelim Diff (Auto) Neut % (Auto) (16.0-70.0) % Lymph % (Auto) (9.0-44.0) % [place] % (Auto) (0.0-8.0) % Eos % (Auto) (0.0-4.0) % Baso % (Auto) (0.0-2.0) % Neut # (Auto) (1.8-7.7) th/mm3 Lymph # (Auto) (1.0-4.8) th/mm3 [place] # (Auto) (0.0-0.9) th/mm3 Eos # (Auto) (0.0-0.4) th/mm3 Baso # (Auto) (0.0-0.2) th/mm3 WBC Differential Seg Neuts % (Manual) (16-70) % Band Neuts % (Manual) (0-6) % Lymphocytes % (Manual) (9-44) % Monocytes % (Manual) (0-8) % Metamyelocytes % (Man) (0-1) % Abs Neuts (Manual) (1.8-7.7) th/mm3 Differential Comment Platelet Estimate (Normal) Platelet Morphology (Normal) RBC Morphology (Normal) PT (9.8-11.6) sec INR Ratio APTT (24.3-30.1) sec Sodium (136-145) meq/L Potassium (3.5-5.1) meq/L Chloride (98-107) meq/L Carbon Dioxide (21.0-32.0) meq/L Anion Gap (5-15) meq/L BUN (7-18) mg/dL Creatinine (0.50-1.00) mg/dL Estimated GFR (>89) mL/min Random Glucose (74-106) mg/dL Lactic Acid 2.3 H (0.4-2.0) mmol/L Calcium (8.5-10.1) mg/dL Magnesium (1.5-2.5) mg/dL Total Bilirubin (0.2-1.0) mg/dL AST (15-37) U/L ALT (10-53) U/L Alkaline Phosphatase (45-117) U/L Total Creatine Kinase (26-192) U/L Troponin I (0.02-0.05) ng/mL B-Natriuretic Peptide 60 (0-100) pg/mL Total Protein (6.4-8.2) g/dL Albumin (3.4-5.0) g/dL Urine Color Yellow (Yellw/Straw) Urine Clarity Clear (Clear) Urine pH 5.0 (5.0-8.5) Ur Specific [place] 1.018 (1.002-1.035) Urine Protein Negative (Neg-Trace) mg/dL Urine Glucose (UA) 50 (Negative) mg/dL Urine Ketones Negative (Negative) mg/dL Urine Occult Blood Negative (Negative) Urine Nitrate Negative (Negative) Urine Bilirubin Negative (Negative) Urine Urobilinogen Less than 2 (Less than 2) mg/dL Ur Leukocyte Esterase Trace H (Negative) Urine RBC 2 (0-3) /hpf Urine WBC 4 (0-5) /hpf Ur Squamous Epith Cells 3 (0-5) /hpf Urine Bacteria Rare H (None) /hpf Urine Mucus Few H (Occasional) /lpf Urine Yeast Few H (None) /hpf Micro UA Comment Culture not ind Urine Culture Comments Culture not ind Imaging Data Radiologist's impression: ITS Impressions Chest X-Ray 02/27/18 09:31 CONCLUSION: Bilateral mid lung and basilar airspace disease ECG Data EKG Prior to Arrival: No Attestation: I personally reviewed and interpreted this ECG as follows: Interpretation: EKG reveals sinus tachycardia with a heart rate of 115. Wavy baseline. Nonspecific T-wave changes. Discharge Plan Discharge Disposition Patient Disposition: 30 Still Patient Discharge Condition Condition: Stable Discharge Details Diagnosis: Pneumonia, Hypoxia Physicians Team ED Provider: Patrick Adorno Primary Care Provider: UNKNOWN, Rxs /Orders / Referrals /Forms Prescriptions: No Action famotidine [Pepcid] 20 mg Tablet 20 mg PO DAILY RF: 0 fluoxetine 20 mg Tablet 20 mg PO DAILY RF: 0 gabapentin 300 mg Capsule 300 mg PO DAILY RF: 0 sennosides [senna] 8.6 mg Tablet 8.6 mg PO HS PRN (Reason: Constipation) RF: 0 ipratropium-albuterol 0.5 mg-3 mg(2.5 mg base)/3 mL Solution For Nebulization 3 ml INHALATION QID RF: 0 risperidone 4 mg Tablet 4 mg PO DAILY RF: 0 ondansetron HCl [Zofran] 4 mg Tablet 4 mg PO BID PRN (Reason: Nausea) RF: 0 pantoprazole 20 mg Tablet,Delayed Release (Dr/Ec) 20 mg PO DAILY RF: 0 meloxicam 7.5 mg Tablet 7.5 mg PO DAILY RF: 0 mirtazapine 30 mg Tablet 30 mg PO HS RF: 0 lisinopril 10 mg Tablet 10 mg PO DAILY RF: 0 albuterol sulfate [Ventolin HFA] 90 mcg/actuation Hfa Aerosol Inhaler 2 puff INHALATION Q4-6H PRN (Reason: Respiratory Distress) RF: 0 trihexyphenidyl 2 mg Tablet 2 mg PO BID RF: 0 amoxicillin-pot clavulanate 875-125 mg Tablet 1 tab PO Q12H RF: 0 hydroxyzine pamoate [Vistaril] 25 mg Capsule 25 mg PO BID PRN (Reason: Anxiety) RF: 0 budesonide-formoterol [Symbicort] 160-4.5 mcg/actuation Hfa Aerosol Inhaler 2 puff INHALATION BID RF: 0 Discharge Interventions Interventions: Vital Signs Last Done: 02/27/18 11:00 Status ED Status: With Doctor
[2018-02-27 10:22] LABS: Baso % (Auto) 0.3 % (0.0-2.0); Eos % (Auto) 0.2 % (0.0-4.0); Hematocrit 30.5 % (35.0-46.0); Hemoglobin 9.9 gm/dL (11.6-15.3); Lymph # (Auto) 0.3 th/mm3 (1.0-4.8); Lymph % (Auto) 2.9 % (9.0-44.0); Mean Corpuscular HGB Conc 32.3 % (32.0-36.0); Mean Corpuscular Hemoglobin 26.9 pg (27.0-34.0); Mean Corpuscular Volume 83.4 fL (80.0-100.0); Mean Platelet Volume 8.6 fL (7.0-11.0); Mono # (Auto) 0.7 th/mm3 (0.0-0.9); Mono % (Auto) 8.4 % (0.0-8.0); Neut # (Auto) 7.7 th/mm3 (1.8-7.7); Neut % (Auto) 88.2 % (16.0-70.0); Platelet Count 250 th/mm3 (150-450); Red Blood Count 3.66 mil/mm3 (4.00-5.30); White Blood Count 8.8 th/mm3 (4.0-11.0)
[2018-02-27 10:38] LABS: Albumin 2.5 g/dL (3.4-5.0); Anion Gap 10 meq/L (5-15); Aspartate Aminotransferase 8 U/L (15-37); Blood Urea Nitrogen 46 mg/dL (7-18); Calcium 8.7 mg/dL (8.5-10.1); Carbon Dioxide 20.4 meq/L (21.0-32.0); Chloride 113 meq/L (98-107); Glomerular Filtration Rate 36 mL/min (>89); Glucose,Random 237 mg/dL (74-106); Magnesium 1.4 mg/dL (1.5-2.5); Potassium 4.3 meq/L (3.5-5.1); Sodium 143 meq/L (136-145)
[2018-02-27 10:39] LABS: Activated Partial Thrombo Time 20.6 sec (24.3-30.1); Alanine Aminotransferase 16 U/L (10-53); Prothrombin Time 10.3 sec (9.8-11.6)
[2018-02-27 10:43] LABS: Alkaline Phosphatase 65 U/L (45-117); Total Protein 6.1 g/dL (6.4-8.2)
--- NOTE | 2018-02-27 10:45 | XR ---
EXAM DATE: 02/27/2018 10:39 AM EDT AGE/SEX: 67 years / Female INDICATIONS: Short of breath today. CLINICAL DATA: This is the patient's initial encounter. Patient reports that signs and symptoms have been present for 1 day and indicates a pain score of 0/10. MEDICAL/SURGICAL HISTORY: Cardiovascular disease. Chronic obstructive pulmonary disease. Diabe les. Hysterectomy. COMPARISON: [facility] – [place], [place], CHEST PA & LAT, 02/11/2018. . FINDINGS: Patchy airspace disease is noted in both mid and lower lung wilhelm. Heart remains normal in size. Osseous structures are intact. CONCLUSION: Bilateral mid lung and basilar airspace disease Electronically signed by: Dickson Newell MD 02/27/2018 10:44 AM EDT
[2018-02-27 10:52] LABS: Creatine Kinase 31 U/L (26-192)
[2018-02-27 11:12] LABS: Lymphocytes 1 % (9-44); Metamyelocytes 2 % (0-1); Monocytes 2 % (0-8); Platelet Estimate Normal (Normal); Platelet Morphology Normal (Normal); RBC Morphology Normal (Normal)
[2018-02-27 12:31] LABS: Bacteria,Urine Rare /hpf; Bilirubin,Urine Negative (Negative); Color,Urine Yellow (Yellw/Straw); Glucose,Urine (UA) 50 mg/dL (Negative); Leukocyte Esterase,Urine Trace (Negative); Mucus,Urine Few /lpf (Occasional); Nitrite,Urine Negative (Negative); Specific Gravity,Urine 1.018 (1.002-1.035); Squamous Epithelial Cell,Urine 3 /hpf (0-5)
[2018-02-27 12:32] LABS: Clarity,Urine Clear (Clear)
[2018-02-27] MEDS ORDERED: Azithromycin Inj 500 MG in Sodium Chlor 0.9% Inj 250 ML IV.SIG ONE (13:42)
[2018-02-27] MEDS ORDERED: Acetaminophen 325 MG Tablet PO ONE (13:46)
--- NOTE | 2018-02-27 14:07 | ECG ---
Date Performed: 02/27/2018 Time Performed: 09:19:02 PTAGE: 67 years EKG: Jose baseline artifact is present. The EKG is uninterpretable and I would repeat it. PREVIOUS TRACING : 02/11/2018 12.47 DOCTOR: Yovani Petersen Interpretating Date/Time 02/27/2018 14:06:25
[2018-02-27] MEDS ORDERED: Bisacodyl 10 MG Supp RECTAL PRN (14:26)
[2018-02-27] MEDS ORDERED: Temazepam 15 MG Capsule PO PRN (14:26)
[2018-02-27] MEDS ORDERED: KCL 20 mEq/D5W/NaCl 0.45% Inj 1,000 ML IV.CONT SCH (14:30)
[2018-02-27] MEDS ORDERED: Dextrose 50% in Water 50 ML Vial IV.PUSH PRN (15:13)
--- NOTE | 2018-02-27 15:15 | P.HPIM ---
History of Present Illness Service: [facility] Primary Care Physician: UNKNOWN Chief Complaint: Sent from [facility] for shortness of breath History of Present Illness: 67-year-old female with a medical history significant for hypertension, GERD, COPD recently discharged from the hospital after she was admitted for aspiration pneumonia. The patient went home on oral antibiotics. She was discharged on nectar thickened liquid diet. On my evaluation today, the patient has a big bottle of Gatorade in hand. She states she forgot about using thickened liquid. She has been coughing. No fevers or chills. Workup in the emergency room shows bilateral midlung and basilar airspace disease, presumably pneumonia. - Diagnosis (1) Hypoxemia (2) COPD (chronic obstructive pulmonary disease) (3) Pneumonia Inpatient Certification: I certify that the inpatient services were ordered in accordance with Medicare regulations governing the order. This includes certification that hospital inpatient services are reasonable and necessary and in the case of services not specified as inpatient-only under 42 CFR 419.22(n), that they are appropriately provided as inpatient services in accordance to with the 2-midnight benchmark under 43 CFR 412.3(e) Estimated Total Length of Stay (Days): 3 Plans for Post Hospital Care: SNF Review of Systems All other systems reviewed negative except as stated in HPI PMFSH - History History Provided By: Patient - Medical History Medical History: Medical History (Last Updated 02/27/18 @ 15:01 by Scooby Clark MD) COPD (chronic obstructive pulmonary disease) CVA (cerebral vascular accident) Dementia GERD (gastroesophageal reflux disease) Hx of hysterectomy Schizencephalic porencephaly Schizophrenia Smoker - Surgical History Surgical History: Surgical History (Last Reviewed 02/27/18 @ 15:01 by Scooby Clark MD) Hx of cholecystectomy No history of previous surgery - Family History Family History: Family History (Last Updated 02/27/18 @ 15:01 by Scooby Clark MD) Other Family history non-contributory - Tobacco History Second Hand Smoke Exposure: Yes Tobacco Use In Past 30 Days: Yes Smoking Status: Current every day smoker Tobacco Type: Cigarettes - Alcohol History How Often Do You Have a Drink Containing Alcohol: Never - Substance Use History Substance History: No History of Abuse - Travel History Recent Travel in the [place] Within the Last 8 Weeks: No Recent Travel Out of the Country Within the Last 8 Weeks: No - Immunization History Tetanus Immunization: >5 Years Hx Influenza Vaccine This Season: Yes Medications and Allergies Active Medications: Active Medications Al Hydroxide/Mg Hydroxide (Milk Of Magnesia Liq) 30 ml PO Q12H PRN PRN Reason: Mild Constipation Albuterol (Duoneb Neb (Prn)) ampul INH QID [facility] Bisacodyl (Dulcolax Supp) 10 mg RECTAL DAILY PRN PRN Reason: SEVERE CONSITIPATION Budesonide/Formoterol Fumarate (Symbicort 160/4.5 Mcg Inh) 2 puff INH BID [facility] Famotidine (Pepcid) 20 mg PO DAILY [facility] Gabapentin (Neurontin) 300 mg PO DAILY [facility] Hydroxyzine Pamoate (Vistaril) 25 mg PO BID PRN PRN Reason: Anxiety Cefepime HCl 1,000 mg/ Sodium (Chloride) 100 mls @ 200 mls/hr IV.SIG Q8H [facility] Azithromycin 250 mg/ Sodium (Chloride) 250 mls @ 250 mls/hr IV.SIG Q24H [facility] Lactulose (Lactulose Liq) 30 ml PO DAILY PRN PRN Reason: SEVERE CONSITIPATION Lisinopril (Prinivil) 10 mg PO DAILY [facility] Non-Formulary Medication (Fluoxetine [Fluoxetine]) 20 mg PO DAILY [facility] Non-Formulary Medication (Mirtazapine [Mirtazapine]) 30 mg PO HS [facility] Non-Formulary Medication (Risperidone [Risperidone]) 4 mg PO DAILY [facility] Non-Formulary Medication (Albuterol Sulfate) 2 puff INHALATION Q4-6H PRN PRN Reason: Respiratory Distress Pantoprazole Sodium (Protonix) 20 mg PO DAILY [facility] Sennosides (Senokot) 17.2 mg PO Q12H PRN PRN Reason: Moderate Constipation Temazepam (Restoril) 15 mg PO HS PRN PRN Reason: INSOMNIA Trihexyphenidyl HCl (Artane) 2 mg PO BID [facility] Allergies Allergy/AdvReac Type Severity Reaction Status Date / Time No Known Allergies Allergy Verified 02/27/18 10:48 Home Medications Medication Instructions Recorded Confirmed Type albuterol sulfate [Ventolin HFA] 2 puff INHALATION Q4-6H PRN 02/27/18 02/27/18 History amoxicillin-pot clavulanate 1 tab PO Q12H 02/27/18 02/27/18 History budesonide-formoterol [Symbicort] 2 puff INHALATION BID 02/27/18 02/27/18 History famotidine [Pepcid] 20 mg PO DAILY 02/27/18 02/27/18 History fluoxetine 20 mg PO DAILY 02/27/18 02/27/18 History gabapentin 300 mg PO DAILY 02/27/18 02/27/18 History hydroxyzine pamoate [Vistaril] 25 mg PO BID PRN 02/27/18 02/27/18 History ipratropium-albuterol 3 ml INHALATION QID 02/27/18 02/27/18 History lisinopril 10 mg PO DAILY 02/27/18 02/27/18 History meloxicam 7.5 mg PO DAILY 02/27/18 02/27/18 History mirtazapine 30 mg PO HS 02/27/18 02/27/18 History ondansetron HCl [Zofran] 4 mg PO BID PRN 02/27/18 02/27/18 History pantoprazole 20 mg PO DAILY 02/27/18 02/27/18 History risperidone 4 mg PO DAILY 02/27/18 02/27/18 History sennosides [senna] 8.6 mg PO HS PRN 02/27/18 02/27/18 History trihexyphenidyl 2 mg PO BID 02/27/18 02/27/18 History Exam Vital signs: Vital Signs 02/27/18 09:08 02/27/18 09:13 02/27/18 09:31 Temperature 99.4 F 98.7 F Pulse Rate 115 H 112 H 114 H Respiratory Rate 18 20 Blood Pressure 96/54 L 109/55 L Pulse Oximetry 98 99 02/27/18 09:52 02/27/18 10:13 02/27/18 11:00 Temperature 98.8 F 98.4 F Pulse Rate 107 H 104 H 94 H Respiratory Rate 20 20 Blood Pressure 101/58 L 102/65 Pulse Oximetry 99 100 02/27/18 12:00 02/27/18 13:00 02/27/18 14:00 Temperature 99.1 F 99.7 F H 99.6 F Pulse Rate 98 H 98 H 89 Respiratory Rate 20 20 20 Blood Pressure 100/57 L 102/55 L 97/58 L Pulse Oximetry 99 98 98 Intake & Output 07/06/0602/27/18 02/27/18 18:59 06:59 18:59 Intake Total 1100 / 1100 Balance 1100 / 1100 Weight 72.575 kg Intake: IV 1100 / 1100 Maxipime Inj 2,000 MG In NS Inj 100 / 100 100 ML @ 200 mls/hr IV.SIG ONCE ONE Rx#:[id number] Narrative: GENERAL: Patient appear frail but no acute distress. CARDIOVASCULAR: Normal rate and regular rhythm without murmurs, gallops, or rubs. RESPIRATORY: Good respiratory efforts. Diffuse rhonchi, more pronounced in the right base. No wheezing. GASTROINTESTINAL: Abdomen soft, non-tender, non-distended. Normal active bowel sounds MUSCULOSKELETAL: Extremities without cyanosis, or edema. NEURO: Alert & Oriented x4 to person, place, time, situation. Moves all ext x4 PSYCH: Appropriate mood. Somewhat flat affect. Results - Labs CBC & Chem 7: 02/27/18 09:41 02/27/18 09:41 Labs: Short CBC 02/27/18 Range/Units 09:41 WBC 8.8 (4.0-11.0) th/mm3 Hgb 9.9 L (11.6-15.3) gm/dL Hct 30.5 L (35.0-46.0) % Plt Count 250 (150-450) th/mm3 BMP 02/27/18 09:41 Sodium 143 Potassium 4.3 Chloride 113 H Carbon Dioxide 20.4 L BUN 46 H Creatinine 1.44 H Calcium 8.7 Cardiac Enzymes 02/27/18 Range/Units 09:41 Total Creatine Kinase 31 (26-192) U/L Troponin I Less than 0.02 L (0.02-0.05) ng/mL Liver Function 02/27/18 Range/Units 09:41 Total Bilirubin 0.6 (0.2-1.0) mg/dL AST 8 L (15-37) U/L ALT 16 (10-53) U/L Alkaline Phosphatase 65 (45-117) U/L Albumin 2.5 L (3.4-5.0) g/dL Urine 02/27/18 Range/Units 12:00 Urine Color Yellow (Yellw/Straw) Urine Clarity Clear (Clear) Urine pH 5.0 (5.0-8.5) Ur Specific [place] 1.018 (1.002-1.035) Urine Protein Negative (Neg-Trace) mg/dL Urine Glucose (UA) 50 (Negative) mg/dL - Imaging Impressions Chest X-Ray 02/27/18 09:31 CONCLUSION: Bilateral mid lung and basilar airspace disease Caprini VTE Risk Assessment Caprini VTE Risk Assessment: Moderate/High Risk (score >= 2) Caprini Risk Assessment Model: Point Value = 1 Point Value = 2 Point Value = 3 Point Value = 5 Age 41-60 Minor surgery BMI > 25 kg/m2 Swollen legs Varicose veins or History of unexplained or recurrent spontaneous Oral contraceptives or hormone replacement Sepsis (< 1 month) Serious lung disease, including pneumonia (< 1 month) Abnormal pulmonary function Acute myocardial infarction Congestive heart failure (< 1 month) History of inflammatory bowel disease Medical patient at bed rest Age 61-74 Arthroscopic surgery Major open surgery (> 45 min) Laparoscopic surgery (> 45 min) Malignancy Confined to bed (> 72 hours) Immobilizing plaster cast Central venous access Age >= 75 History of VTE Family history of VTE Factor V Leiden Prothrombin [id number] Lupus anticoagulant Anticardiolipin antibodies Elevated serum homocysteine Heparin-induced thrombocytopenia Other congenital or acquired thrombophilia Stroke (< 1 month) Elective arthroplasty Hip, pelvis, or leg fracture Acute spinal cord injury (< 1 month) Prophylaxis Regimen: Total Risk Factor Score Risk Level Prophylaxis Regimen 0-1 Low Early ambulation 2 Moderate Order ONE of the following: *Sequential Compression Device (SCD) *Heparin 5000 units SQ BID 3-4 Higher Order ONE of the following medications: *Heparin 5000 units SQ TID *Enoxaparin/Lovenox 40 mg SQ daily (WT < 150 kg, CrCl > 30 mL/min) *Enoxaparin/Lovenox 30 mg SQ daily (WT < 150 kg, CrCl > 10-29 mL/min) *Enoxaparin/Lovenox 30 mg SQ BID (WT < 150 kg, CrCl > 30 mL/min) AND/OR *Sequential Compression Device (SCD) 5 or more Highest Order ONE of the following medications: *Heparin 5000 units SQ TID (Preferred with Epidurals) *Enoxaparin/Lovenox 40 mg SQ daily (WT < 150 kg, CrCl > 30 mL/min) *Enoxaparin/Lovenox 30 mg SQ daily (WT < 150 kg, CrCl > 10-29 mL/min) *Enoxaparin/Lovenox 30 mg SQ BID (WT < 150 kg, CrCl > 30 mL/min) AND *Sequential Compression Device (SCD) Assessment and Plan - Assessment (1) Hypoxemia Code(s): R09.02 - Hypoxemia Status: Acute (2) COPD (chronic obstructive pulmonary disease) Code(s): J44.9 - Chronic obstructive pulmonary disease, unspecified Status: Acute (3) Pneumonia Code(s): J18.9 - Pneumonia, unspecified organism Status: Acute - Plan 67-year-old female with: Pneumonia: Concern for recurrent aspiration. Patient was discharged a couple of weeks ago on thin liquid diet. She has not been adhering to his diet and has been coughing. -Continue antibiotics with cefepime and azithromycin. Follow progress. -Breathing treatments as needed -Patient has been having recurrent admissions, she may benefit from SNF placement instead of going back to [facility]. COPD: -No wheezing on exam. Continue baseline treatment with home dose inhalers. SALAS: Likely secondary to hypoxemia - Gentle IV fluid. Follow-up BMP in a.m. Hypertension: - Continue home dose antihypertensives. Schizophrenia: Continue home medications Hypomagnesemia: -Replace and monitor. (3) Pneumonia Qualifiers: Pneumonia type: due to unspecified organism Laterality: bilateral Lung location: unspecified part of lung Qualified Code(s): J18.9 - Pneumonia, unspecified organism
[2018-02-27] MEDS: Mag Sulf 1 gm/100 ml Premix 100 ML IV.SIG SCH ×2 (16:08→17:15)
[2018-02-27] MEDS: Heparin - SQ 10,000 UNITS/ML Vial SQ SCH (16:08)
[2018-02-27] MEDS: Insulin NovoLOG Aspart Correctional Sugar Inj SQ SCH ×2 (16:33→23:43)
[2018-02-27] MEDS: Potassium Chloride Inj 10 MEQ in Sod Chloride 0.9% Inj 1,000 ML IV.CONT SCH (16:33)
[2018-02-27] MEDS: Mirtazapine 15 MG Tablet PO SCH (22:30)
[2018-02-27] MEDS: Budesonide-Formoterol 160/4.5 MCG 6 GM Inhaler INH SCH (23:40)
[2018-02-28] MEDS: Heparin - SQ 10,000 UNITS/ML Vial SQ SCH ×2 (04:24→15:57)
[2018-02-28] MEDS: Potassium Chloride Inj 10 MEQ in Sod Chloride 0.9% Inj 1,000 ML IV.CONT SCH (04:24)
[2018-02-28 07:26] LABS: Baso % (Auto) 0.2 % (0.0-2.0); Eos # (Auto) 0.1 th/mm3 (0.0-0.4); Eos % (Auto) 0.6 % (0.0-4.0); Hematocrit 26.4 % (35.0-46.0); Hemoglobin 8.5 gm/dL (11.6-15.3); Lymph # (Auto) 0.7 th/mm3 (1.0-4.8); Lymph % (Auto) 3.9 % (9.0-44.0); Mean Corpuscular HGB Conc 32.4 % (32.0-36.0); Mean Corpuscular Hemoglobin 26.9 pg (27.0-34.0); Mean Corpuscular Volume 82.9 fL (80.0-100.0); Mean Platelet Volume 8.4 fL (7.0-11.0); Mono # (Auto) 1.1 th/mm3 (0.0-0.9); Mono % (Auto) 6.1 % (0.0-8.0); Neut # (Auto) 16.2 th/mm3 (1.8-7.7); Neut % (Auto) 89.2 % (16.0-70.0); Platelet Count 226 th/mm3 (150-450); Red Blood Count 3.18 mil/mm3 (4.00-5.30); Red Cell Distribution Width 17.5 % (11.6-17.2); White Blood Count 18.1 th/mm3 (4.0-11.0)
[2018-02-28 08:04] LABS: Calcium 8.5 mg/dL (8.5-10.1); Carbon Dioxide 19.5 meq/L (21.0-32.0); Magnesium 1.9 mg/dL (1.5-2.5); Potassium 4.9 meq/L (3.5-5.1)
[2018-02-28 08:45] LABS: Lymphocytes 6 % (9-44); Monocytes 1 % (0-8)
[2018-02-28 08:46] LABS: Platelet Estimate Normal (Normal); Platelet Morphology Normal (Normal)
[2018-02-28] MEDS: Famotidine 20 MG Tablet PO SCH (08:58)
[2018-02-28] MEDS: Pantoprazole Sodium 20 MG DR Tablet PO SCH (08:58)
[2018-02-28] MEDS: Gabapentin 300 MG Capsule PO SCH (08:58)
[2018-02-28] MEDS: FLUoxetine 20 MG Capsule PO SCH (08:58)
[2018-02-28] MEDS: Budesonide-Formoterol 160/4.5 MCG 6 GM Inhaler INH SCH (09:02)
[2018-02-28] MEDS: Lisinopril 10 MG Tablet PO SCH (09:08)
[2018-02-28] MEDS: Insulin NovoLOG Aspart Correctional Sugar Inj SQ SCH ×4 (09:50→22:25)
[2018-02-28] MEDS: Acetaminophen 325 MG Tablet PO PRN (11:26)
--- NOTE | 2018-02-28 11:45 | P.PNIM ---
Subjective Interval history: in no acute distress but with some sob. has occasional cough- T max 100.1. Physical Exam Vital signs: Vital Signs 02/27/18 12:00 02/27/18 13:00 02/27/18 14:00 Temperature 99.1 F 99.7 F H 99.6 F Pulse Rate 98 H 98 H 89 Respiratory Rate 20 20 20 Blood Pressure 100/57 L 102/55 L 97/58 L Pulse Oximetry 99 98 98 02/27/18 15:00 02/27/18 15:48 02/27/18 16:00 Temperature 99.4 F 99.1 F Pulse Rate 76 81 79 Respiratory Rate 20 21 20 Blood Pressure 102/56 L 97/61 L Pulse Oximetry 98 98 02/27/18 17:04 02/27/18 18:00 02/27/18 18:23 Temperature 98.8 F 98.3 F 98.1 F Pulse Rate 89 75 77 Respiratory Rate 16 18 20 Blood Pressure 129/60 98/67 L 106/54 L Pulse Oximetry 98 02/27/18 19:17 02/27/18 19:45 02/27/18 20:00 Temperature 98.3 F Pulse Rate 82 98 H 97 H Respiratory Rate 24 18 Blood Pressure 119/60 116/57 L Pulse Oximetry 100 93 L 02/27/18 21:00 02/28/18 00:00 02/28/18 04:00 Temperature 99.5 F 100.1 F H Pulse Rate 118 H Respiratory Rate 20 18 Blood Pressure 127/59 L 116/58 L Pulse Oximetry 95 92 L 94 L Intake & Output 02/27/18 02/28/18 02/28/18 18:59 06:59 18:59 Intake Total 2550 / 2550 1205 / 1205 Output Total 600 / 600 Balance 1950 / 1950 1205 / 1205 Weight 72.575 kg 70.7 kg Intake: IV 2550 / 2550 1205 / 1205 KCl Inj 10 MEQ In NS Inj 1,000 1005 / 1005 ML @ 84 mls/hr IV.CONT .[id number] [facility] Rx#:[id number] Azithromycin Inj 500 MG In NS 250 / 250 Inj 250 ML @ 250 mls/hr IV.SIG ONCE ONE Rx#:[id number] Maxipime Inj 1,000 MG In NS Inj 200 / 200 100 ML @ 200 mls/hr IV.SIG Q8H [facility] Rx#:[id number] Maxipime Inj 2,000 MG In NS Inj 100 / 100 100 ML @ 200 mls/hr IV.SIG ONCE ONE Rx#:[id number] Magnesium Sulfate 1 gm/D5W 100 200 / 200 ml Premix 100 ML @ 100 mls/hr IV.SIG Q1H [facility] Rx#:[id number] NS Inj 1,000 ML @ Wide Open IV. 1000 / 1000 SIG BOLUS ONE Rx#:[id number] Output: Urine 600 / 600 Other: Date of Last Bowel Movement 02/28/18 # Bowel Movements 1 Weight On Admission 72.575 kg - Constitutional mild distress - Routine Cardiovascular Exam Present: RRR - Routine Abdominal Exam Present: soft - Routine Extremities Exam Comments: no pedal edema. - Routine Neurological Exam Present: alert, oriented X3 Results - Labs CBC & Chem 7: 02/28/18 06:57 02/28/18 06:57 Laboratory Results - last 24 hr 02/27/18 02/27/18 02/27/18 12:00 13:50 16:07 WBC RBC Hgb Hct MCV MCH MCHC RDW Plt Count MPV Prelim Diff (Auto) Neut % (Auto) Lymph % (Auto) [place] % (Auto) Eos % (Auto) Baso % (Auto) Neut # (Auto) Lymph # (Auto) [place] # (Auto) Eos # (Auto) Baso # (Auto) WBC Differential Seg Neuts % (Manual) Band Neuts % (Manual) Lymphocytes % (Manual) Monocytes % (Manual) Abs Neuts (Manual) Differential Comment Platelet Estimate Platelet Morphology Sodium Potassium Chloride Carbon Dioxide Anion Gap BUN Creatinine Estimated GFR POC Glucose 385 H Random Glucose Lactic Acid 2.8 H Calcium Magnesium Urine Color Yellow Urine Clarity Clear Urine pH 5.0 Ur Specific [place] 1.018 Urine Protein Negative Urine Glucose (UA) 50 Urine Ketones Negative Urine Occult Blood Negative Urine Nitrate Negative Urine Bilirubin Negative Urine Urobilinogen Less than 2 Ur Leukocyte Esterase Trace H Urine RBC 2 Urine WBC 4 Ur Squamous Epith Cells 3 Urine Bacteria Rare H Urine Mucus Few H Urine Yeast Few H Micro UA Comment Culture not ind Urine Culture Comments Culture not ind 02/27/18 02/28/18 02/28/18 22:37 06:57 06:57 WBC 18.1 H D RBC 3.18 L Hgb 8.5 L Hct 26.4 L MCV 82.9 MCH 26.9 L MCHC 32.4 RDW 17.5 H Plt Count 226 MPV 8.4 Prelim Diff (Auto) Slide review pending Neut % (Auto) 89.2 H Lymph % (Auto) 3.9 L Perkins % (Auto) 6.1 Eos % (Auto) 0.6 Baso % (Auto) 0.2 Neut # (Auto) 16.2 H Lymph # (Auto) 0.7 L [place] # (Auto) 1.1 H Eos # (Auto) 0.1 Baso # (Auto) 0.0 WBC Differential Manual diff final Seg Neuts % (Manual) 47 Band Neuts % (Manual) 46 H Lymphocytes % (Manual) 6 L Monocytes % (Manual) 1 Abs Neuts (Manual) 16.8 H Differential Comment . Platelet Estimate Normal Platelet Morphology Normal Sodium 144 Potassium 4.9 Chloride 116 H Carbon Dioxide 19.5 L Anion Gap 9 BUN 27 H Creatinine 0.79 Estimated GFR 73 L POC Glucose 130 H Random Glucose 130 H D Lactic Acid Calcium 8.5 Magnesium 1.9 Urine Color Urine Clarity Urine pH Ur Specific [place] Urine Protein Urine Glucose (UA) Urine Ketones Urine Occult Blood Urine Nitrate Urine Bilirubin Urine Urobilinogen Ur Leukocyte Esterase Urine RBC Urine WBC Ur Squamous Epith Cells Urine Bacteria Urine Mucus Urine Yeast Micro UA Comment Urine Culture Comments 02/28/18 07:28 WBC RBC Hgb Hct MCV MCH MCHC RDW Plt Count MPV Prelim Diff (Auto) Neut % (Auto) Lymph % (Auto) [place] % (Auto) Eos % (Auto) Baso % (Auto) Neut # (Auto) Lymph # (Auto) [place] # (Auto) Eos # (Auto) Baso # (Auto) WBC Differential Seg Neuts % (Manual) Band Neuts % (Manual) Lymphocytes % (Manual) Monocytes % (Manual) Abs Neuts (Manual) Differential Comment Platelet Estimate Platelet Morphology Sodium Potassium Chloride Carbon Dioxide Anion Gap BUN Creatinine Estimated GFR POC Glucose 167 H Random Glucose Lactic Acid Calcium Magnesium Urine Color Urine Clarity Urine pH Ur Specific [place] Urine Protein Urine Glucose (UA) Urine Ketones Urine Occult Blood Urine Nitrate Urine Bilirubin Urine Urobilinogen Ur Leukocyte Esterase Urine RBC Urine WBC Ur Squamous Epith Cells Urine Bacteria Urine Mucus Urine Yeast Micro UA Comment Urine Culture Comments Microbiology 02/27/18 09:41 Blood - Peripheral Aerobic Blood Culture - Preliminary No growth in 1 day 02/27/18 09:41 Blood - Peripheral Anaerobic Blood Culture - Preliminary No growth in 1 day 02/27/18 09:41 Blood - Peripheral Aerobic Blood Culture - Preliminary No growth in 1 day 02/27/18 09:41 Blood - Peripheral Anaerobic Blood Culture - Preliminary No growth in 1 day Assessment and Plan - Assessment (1) Hypoxemia Code(s): R09.02 - Hypoxemia Status: Acute (2) COPD (chronic obstructive pulmonary disease) Code(s): J44.9 - Chronic obstructive pulmonary disease, unspecified Status: Acute (3) Pneumonia Code(s): J18.9 - Pneumonia, unspecified organism Status: Acute - Plan Pneumonia: Concern for recurrent aspiration. Patient was discharged a couple of weeks ago on thin liquid diet. -Continue antibiotics with cefepime and azithromycin. Follow progress. -Breathing treatments as needed -Patient has been having recurrent admissions, she may benefit from SNF placement instead of going back to [facility]. -will consult PT. -seen by [facility] ( leukocytosis/ tachycardia)- due to pneumonia- treatment plan as noted above- COPD: -No wheezing on exam. Continue baseline treatment with home dose inhalers. SALAS: resolved. Hypertension: - Continue home dose antihypertensives. Schizophrenia: Continue home medications Hypomagnesemia: -Replaced DVT prophylaxis with subq Heparin. Discharge Planning: dc planning within the next 24-48 hrs- pending clinical improvement and PT evaluation. (3) Pneumonia Qualifiers: Pneumonia type: due to unspecified organism Laterality: bilateral Lung location: unspecified part of lung Qualified Code(s): J18.9 - Pneumonia, unspecified organism
[2018-02-28] MEDS: Azithromycin Inj 250 MG in Sodium Chlor 0.9% Inj 250 ML IV.SIG SCH (14:42)
[2018-02-28] MEDS: Mirtazapine 15 MG Tablet PO SCH (22:24)
[2018-03-01] MEDS: Acetaminophen 325 MG Tablet PO PRN (00:22)
[2018-03-01] MEDS: Budesonide-Formoterol 160/4.5 MCG 6 GM Inhaler INH SCH ×3 (02:56→22:20)
[2018-03-01] MEDS: Heparin - SQ 10,000 UNITS/ML Vial SQ SCH ×2 (06:34→17:12)
[2018-03-01] MEDS: Insulin NovoLOG Aspart Correctional Sugar Inj SQ SCH ×4 (08:07→22:18)
[2018-03-01] MEDS: Famotidine 20 MG Tablet PO SCH (08:07)
[2018-03-01] MEDS: Gabapentin 300 MG Capsule PO SCH (08:08)
[2018-03-01] MEDS: FLUoxetine 20 MG Capsule PO SCH (08:08)
[2018-03-01] MEDS: Pantoprazole Sodium 20 MG DR Tablet PO SCH (08:08)
[2018-03-01] MEDS: Lisinopril 10 MG Tablet PO SCH (08:08)
--- NOTE | 2018-03-01 13:59 | P.PNIM ---
Subjective Interval history: in no acute distress. has occasional cough but sob seems to be improving. no fever this morning. Physical Exam Vital signs: Vital Signs 02/28/18 14:23 02/28/18 15:57 02/28/18 15:58 Temperature Pulse Rate 80 91 H Respiratory Rate 16 20 Blood Pressure Pulse Oximetry 92 L 02/28/18 16:00 02/28/18 19:49 02/28/18 20:00 Temperature 99.5 F 100.1 F H Pulse Rate 87 87 93 H Respiratory Rate 20 18 18 Blood Pressure 105/52 L 113/55 L Pulse Oximetry 94 L 96 03/01/18 00:00 03/01/18 04:00 03/01/18 08:00 Temperature 100.3 F H 98.7 F 98.1 F Pulse Rate 94 H 92 H 74 Respiratory Rate 18 18 18 Blood Pressure 105/51 L 113/56 L 133/75 Pulse Oximetry 95 95 96 03/01/18 08:27 03/01/18 08:28 03/01/18 12:00 Temperature 98.9 F Pulse Rate 79 87 Respiratory Rate 18 22 Blood Pressure 129/74 Pulse Oximetry 97 95 Intake & Output 02/28/18 03/01/18 03/01/18 18:59 06:59 18:59 Intake Total 100 / 100 350 / 350 100 / 100 Balance 100 / 100 350 / 350 100 / 100 Weight 70.2 kg Intake: IV 100 / 100 350 / 350 100 / 100 Azithromycin Inj 250 MG In NS 250 / 250 Inj 250 ML @ 250 mls/hr IV.SIG Q24H [facility] Rx#:[id number] Maxipime Inj 1,000 MG In NS Inj 100 / 100 100 / 100 100 / 100 100 ML @ 200 mls/hr IV.SIG Q8H [facility] Rx#:[id number] Other: # Voids 3 Date of Last Bowel Movement 02/28/18 02/28/18 # Bowel Movements 1 - Constitutional no acute distress - Routine Respiratory Exam Present: CTA bilaterally - Routine Cardiovascular Exam Present: RRR - Routine Abdominal Exam Present: soft - Routine Extremities Exam Comments: no pedal edema. - Routine Neurological Exam Present: alert, oriented X3 Results - Labs CBC & Chem 7: 02/28/18 06:57 02/28/18 06:57 Laboratory Results - last 24 hr 02/28/18 02/28/18 03/01/18 17:18 20:52 07:26 POC Glucose 119 H 174 H 120 H 03/01/18 11:25 POC Glucose 164 H Microbiology 02/27/18 09:41 Blood - Peripheral Aerobic Blood Culture - Preliminary No growth in 2 days 02/27/18 09:41 Blood - Peripheral Anaerobic Blood Culture - Preliminary No growth in 2 days 02/27/18 09:41 Blood - Peripheral Aerobic Blood Culture - Preliminary No growth in 2 days 02/27/18 09:41 Blood - Peripheral Anaerobic Blood Culture - Preliminary No growth in 2 days Assessment and Plan - Assessment (1) Hypoxemia Code(s): R09.02 - Hypoxemia Status: Acute (2) COPD (chronic obstructive pulmonary disease) Code(s): J44.9 - Chronic obstructive pulmonary disease, unspecified Status: Acute (3) Pneumonia Code(s): J18.9 - Pneumonia, unspecified organism Status: Acute - Plan Pneumonia: Concern for recurrent aspiration. Patient was discharged a couple of weeks ago on thin liquid diet. -Continue antibiotics with cefepime and azithromycin. Follow progress. will deescalate the antibiotic regimen within the next 24hrs if continues to improve clinically. CBC today pending. -Breathing treatments as needed -Patient has been having recurrent admissions, she may benefit from SNF placement instead of going back to [facility]. -consulted PT. -seen by [facility] ( leukocytosis/ tachycardia)- due to pneumonia- treatment plan as noted above- COPD: -No wheezing on exam. Continue baseline treatment with home dose inhalers. SALAS: resolved. Hypertension: - Continue home dose antihypertensives. Schizophrenia: Continue home medications Hypomagnesemia: -Replaced DVT prophylaxis with subq Heparin. Discharge Planning: dc planning within the next 24-48 hrs- if further improves. (3) Pneumonia Qualifiers: Pneumonia type: due to unspecified organism Laterality: bilateral Lung location: unspecified part of lung Qualified Code(s): J18.9 - Pneumonia, unspecified organism
[2018-03-01 14:22] LABS: Hematocrit 27.4 % (35.0-46.0); Hemoglobin 8.7 gm/dL (11.6-15.3); Mean Corpuscular HGB Conc 31.9 % (32.0-36.0); Mean Corpuscular Hemoglobin 26.5 pg (27.0-34.0); Mean Platelet Volume 8.4 fL (7.0-11.0); Platelet Count 241 th/mm3 (150-450); Red Cell Distribution Width 17.6 % (11.6-17.2); White Blood Count 16.4 th/mm3 (4.0-11.0)
[2018-03-01] MEDS: Azithromycin Inj 250 MG in Sodium Chlor 0.9% Inj 250 ML IV.SIG SCH (15:05)
[2018-03-01] MEDS: Mirtazapine 15 MG Tablet PO SCH (22:17)
[2018-03-02] MEDS: Heparin - SQ 10,000 UNITS/ML Vial SQ SCH ×2 (04:00→17:15)
[2018-03-02] MEDS: Famotidine 20 MG Tablet PO SCH (09:04)
[2018-03-02] MEDS: FLUoxetine 20 MG Capsule PO SCH (09:04)
[2018-03-02] MEDS: Pantoprazole Sodium 20 MG DR Tablet PO SCH (09:05)
[2018-03-02] MEDS: Lisinopril 10 MG Tablet PO SCH (09:05)
[2018-03-02] MEDS: Gabapentin 300 MG Capsule PO SCH (09:05)
[2018-03-02] MEDS: Budesonide-Formoterol 160/4.5 MCG 6 GM Inhaler INH SCH ×2 (09:10→20:35)
[2018-03-02] MEDS: Insulin NovoLOG Aspart Correctional Sugar Inj SQ SCH ×4 (09:11→20:36)
--- NOTE | 2018-03-02 12:29 | P.PNIM ---
Subjective Interval history: Patient continues to improve. However, blood cultures show some positivity today so discharge is not initiated. No new complaints from the patient. Physical Exam Vital signs: Vital Signs 03/01/18 15:30 03/01/18 16:00 03/01/18 20:00 Temperature 99.6 F 97.9 F Pulse Rate 109 H 106 H 64 Respiratory Rate 22 20 14 Blood Pressure 132/61 110/64 Pulse Oximetry 92 L 94 L 95 03/01/18 20:07 03/01/18 21:55 03/02/18 04:00 Temperature 98.0 F 98.1 F Pulse Rate 106 H 68 60 Respiratory Rate 20 16 14 Blood Pressure 120/70 118/69 Pulse Oximetry 96 95 03/02/18 08:24 03/02/18 08:29 03/02/18 12:00 Temperature 99.3 F 99.2 F Pulse Rate 75 73 84 Respiratory Rate 16 16 16 Blood Pressure 130/63 112/58 L Pulse Oximetry 98 99 99 Intake & Output 03/01/18 03/02/18 03/02/18 18:59 06:59 18:59 Intake Total 100 / 100 450 / 450 100 / 100 Output Total 600 / 600 Balance -500 / -500 450 / 450 100 / 100 Weight 72.575 kg Intake: IV 100 / 100 450 / 450 100 / 100 Azithromycin Inj 250 MG In NS 0 / 0 250 / 250 Inj 250 ML @ 250 mls/hr IV.SIG Q24H [facility] Rx#:[id number] Maxipime Inj 1,000 MG In NS Inj 100 / 100 200 / 200 100 / 100 100 ML @ 200 mls/hr IV.SIG Q8H [facility] Rx#:[id number] Output: Urine 600 / 600 Other: # Voids 3 5 Date of Last Bowel Movement 02/28/18 # Bowel Movements 1 Narrative: GENERAL: NAD, A&Ox3 HEAD: Normocephalic. NECK: Supple, trachea midline. No lymphadenopathy. EYES: No scleral icterus. No injection or drainage. CARDIOVASCULAR: Regular rate and rhythm without murmurs, gallops, or rubs. RESPIRATORY: Breath sounds equal bilaterally. No accessory muscle use. GASTROINTESTINAL: Abdomen soft, non-tender, nondistended. MUSCULOSKELETAL: No cyanosis, or edema. SKIN: Warm and dry. NEURO: No focal neurological deficits. Results - Labs CBC & Chem 7: 03/01/18 13:45 07/12/18 06:57 Laboratory Results - last 24 hr 03/01/18 03/01/18 03/01/18 13:45 16:32 21:00 WBC 16.4 H RBC 3.30 L Hgb 8.7 L Hct 27.4 L MCV 83.0 MCH 26.5 L MCHC 31.9 L RDW 17.6 H Plt Count 241 MPV 8.4 POC Glucose 133 H 170 H 03/02/18 03/02/18 07:49 12:00 WBC RBC Hgb Hct MCV MCH MCHC RDW Plt Count MPV POC Glucose 133 H 130 H Microbiology 02/27/18 09:41 Blood - Peripheral Aerobic Blood Culture - Preliminary No growth in 3 days 02/27/18 09:41 Blood - Peripheral Anaerobic Blood Culture - Preliminary No growth in 3 days 02/27/18 09:41 Blood - Peripheral Aerobic Blood Culture - Preliminary pleomorphic gram positive rods 02/27/18 09:41 Blood - Peripheral Anaerobic Blood Culture - Preliminary No growth in 3 days Assessment and Plan - Assessment (1) Hypoxemia Code(s): R09.02 - Hypoxemia Status: Acute (2) COPD (chronic obstructive pulmonary disease) Code(s): J44.9 - Chronic obstructive pulmonary disease, unspecified Status: Acute (3) Pneumonia Code(s): J18.9 - Pneumonia, unspecified organism Status: Acute - Plan 67-year-old female admitted secondary to bibasilar pneumonia and hypoxia Sepsis Resolved pneumonia Bacteremia Potential for aspiration Patient is on a thin liquid diet Continue cefepime and azithromycin Blood cultures have resulted as positive Monitor blood cultures COPD No exacerbation Continue as needed breathing treatments Acute kidney injury Resolved Hypomagnesemia Replace and monitor Schizophrenia Stable Continue baseline treatments Follow clinically Hypertension Continue baseline treatment Follow blood pressures Adjust treatments as needed DVT prophylaxis Continue subcutaneous heparin Discharge planning Monitor positive blood cultures for final results prior to consideration for discharge (3) Pneumonia Qualifiers: Pneumonia type: due to unspecified organism Laterality: bilateral Lung location: unspecified part of lung Qualified Code(s): J18.9 - Pneumonia, unspecified organism
[2018-03-02] MEDS: Azithromycin Inj 250 MG in Sodium Chlor 0.9% Inj 250 ML IV.SIG SCH (14:21)
[2018-03-02] MEDS: Acetaminophen 325 MG Tablet PO PRN (17:15)
[2018-03-02] MEDS: Mirtazapine 15 MG Tablet PO SCH (20:35)
[2018-03-03] MEDS: Heparin - SQ 10,000 UNITS/ML Vial SQ SCH ×2 (06:28→15:55)
[2018-03-03] MEDS: Budesonide-Formoterol 160/4.5 MCG 6 GM Inhaler INH SCH ×2 (08:52→20:24)
[2018-03-03] MEDS: Lisinopril 10 MG Tablet PO SCH (08:53)
[2018-03-03] MEDS: Pantoprazole Sodium 20 MG DR Tablet PO SCH (08:53)
[2018-03-03] MEDS: Gabapentin 300 MG Capsule PO SCH (08:53)
[2018-03-03] MEDS: Insulin NovoLOG Aspart Correctional Sugar Inj SQ SCH ×4 (08:54→20:23)
[2018-03-03] MEDS: FLUoxetine 20 MG Capsule PO SCH (08:54)
[2018-03-03] MEDS: Famotidine 20 MG Tablet PO SCH (08:54)
--- NOTE | 2018-03-03 11:14 | P.PNIM ---
Subjective Interval history: Patient reports diarrhea today. Blood cultures are positive and awaiting final culture result. No new complaints from the patient. Physical Exam Vital signs: Vital Signs 03/02/18 12:00 03/02/18 12:33 03/02/18 16:00 Temperature 99.2 F 99.9 F H Pulse Rate 84 83 79 Respiratory Rate 16 14 16 Blood Pressure 112/58 L 100/50 L Pulse Oximetry 99 96 03/02/18 17:04 03/02/18 20:00 03/02/18 22:38 Temperature 98.2 F Pulse Rate 77 69 Respiratory Rate 16 17 Blood Pressure 101/48 L Pulse Oximetry 98 95 03/03/18 00:00 03/03/18 04:00 03/03/18 08:52 Temperature 97.8 F 98.6 F Pulse Rate 71 82 81 Respiratory Rate 18 18 14 Blood Pressure 120/56 L 124/60 Pulse Oximetry 100 98 99 Intake & Output 03/02/18 03/03/18 03/03/18 18:59 06:59 18:59 Intake Total 450 / 450 440 / 440 100 / 100 Balance 450 / 450 440 / 440 100 / 100 Weight 72.4 kg Intake: IV 450 / 450 100 / 100 100 / 100 Azithromycin Inj 250 MG In NS 250 / 250 Inj 250 ML @ 250 mls/hr IV.SIG Q24H [facility] Rx#:[id number] Maxipime Inj 1,000 MG In NS Inj 200 / 200 100 / 100 100 / 100 100 ML @ 200 mls/hr IV.SIG Q8H [facility] Rx#:[id number] Oral 340 / 340 Other: # Voids 3 # Urine Diapers 2 Date of Last Bowel Movement 03/03/18 03/03/18 # Bowel Movements 2 Narrative: GENERAL: NAD, A&Ox3 HEAD: Normocephalic. NECK: Supple, trachea midline. No lymphadenopathy. EYES: No scleral icterus. No injection or drainage. CARDIOVASCULAR: Regular rate and rhythm without murmurs, gallops, or rubs. RESPIRATORY: Breath sounds equal bilaterally. No accessory muscle use. GASTROINTESTINAL: Abdomen soft, non-tender, nondistended. MUSCULOSKELETAL: No cyanosis, or edema. SKIN: Warm and dry. NEURO: No focal neurological deficits. Results - Labs CBC & Chem 7: 03/01/18 13:45 02/28/18 06:57 Laboratory Results - last 24 hr 03/02/18 03/02/18 03/02/18 12:00 16:22 20:34 POC Glucose 130 H 138 H 132 H 03/03/18 07:50 POC Glucose 133 H Microbiology 02/27/18 09:41 Blood - Peripheral Aerobic Blood Culture - Preliminary No growth in 4 days 02/27/18 09:41 Blood - Peripheral Anaerobic Blood Culture - Preliminary No growth in 4 days 02/27/18 09:41 Blood - Peripheral Aerobic Blood Culture - Preliminary pleomorphic gram positive rods 02/27/18 09:41 Blood - Peripheral Anaerobic Blood Culture - Preliminary No growth in 4 days Assessment and Plan - Assessment (1) Hypoxemia Code(s): R09.02 - Hypoxemia Status: Acute (2) COPD (chronic obstructive pulmonary disease) Code(s): J44.9 - Chronic obstructive pulmonary disease, unspecified Status: Acute (3) Pneumonia Code(s): J18.9 - Pneumonia, unspecified organism Status: Acute - Plan 67-year-old female admitted secondary to bibasilar pneumonia and hypoxia Screen diarrhea for C. difficile. Start Imodium if C. difficile screen is negative. Monitor electrolytes. Continue to monitor positive blood culture. Sepsis Resolved pneumonia Bacteremia Potential for aspiration Patient is on a thin liquid diet Continue cefepime and azithromycin Blood cultures have resulted as positive Monitor blood cultures COPD No exacerbation Continue as needed breathing treatments Acute kidney injury Resolved Hypomagnesemia Replace and monitor Schizophrenia Stable Continue baseline treatments Follow clinically Hypertension Continue baseline treatment Follow blood pressures Adjust treatments as needed DVT prophylaxis Continue subcutaneous heparin Discharge planning Monitor positive blood cultures for final results prior to consideration for discharge (3) Pneumonia Qualifiers: Pneumonia type: due to unspecified organism Laterality: bilateral Lung location: unspecified part of lung Qualified Code(s): J18.9 - Pneumonia, unspecified organism
[2018-03-03] MEDS: Azithromycin Inj 250 MG in Sodium Chlor 0.9% Inj 250 ML IV.SIG SCH (15:55)
[2018-03-03] MEDS: Mirtazapine 15 MG Tablet PO SCH (20:23)
[2018-03-04] MEDS: Heparin - SQ 10,000 UNITS/ML Vial SQ SCH (05:20)
[2018-03-04] MEDS: FLUoxetine 20 MG Capsule PO SCH (08:52)
[2018-03-04] MEDS: Gabapentin 300 MG Capsule PO SCH (08:52)
[2018-03-04] MEDS: Lisinopril 10 MG Tablet PO SCH (08:52)
[2018-03-04] MEDS: Famotidine 20 MG Tablet PO SCH (08:52)
[2018-03-04] MEDS: Pantoprazole Sodium 20 MG DR Tablet PO SCH (08:53)
[2018-03-04] MEDS: Budesonide-Formoterol 160/4.5 MCG 6 GM Inhaler INH SCH (08:53)
[2018-03-04] MEDS: Insulin NovoLOG Aspart Correctional Sugar Inj SQ SCH ×2 (09:45→13:17)
[2018-03-04 11:15] LABS: Baso % (Auto) 0.6 % (0.0-2.0); Eos # (Auto) 0.3 th/mm3 (0.0-0.4); Eos % (Auto) 4.4 % (0.0-4.0); Hematocrit 26.8 % (35.0-46.0); Hemoglobin 8.7 gm/dL (11.6-15.3); Lymph % (Auto) 15.3 % (9.0-44.0); Mean Corpuscular HGB Conc 32.6 % (32.0-36.0); Mean Corpuscular Volume 82.8 fL (80.0-100.0); Mono # (Auto) 0.5 th/mm3 (0.0-0.9); Mono % (Auto) 7.7 % (0.0-8.0); Neut # (Auto) 4.6 th/mm3 (1.8-7.7); Platelet Count 305 th/mm3 (150-450); Red Blood Count 3.23 mil/mm3 (4.00-5.30); Red Cell Distribution Width 17.5 % (11.6-17.2); White Blood Count 6.4 th/mm3 (4.0-11.0)
--- NOTE | 2018-03-04 11:18 | P.DS ---
Date of admission: 02/27/18 14:20 Primary care physician: UNKNOWN Brief History from admission: 67-year-old female with a medical history significant for hypertension, GERD, COPD recently discharged from the hospital after she was admitted for aspiration pneumonia. The patient went home on oral antibiotics. She was discharged on nectar thickened liquid diet. On my evaluation today, the patient has a big bottle of Gatorade in hand. She states she forgot about using thickened liquid. She has been coughing. No fevers or chills. Workup in the emergency room shows bilateral midlung and basilar airspace disease, presumably pneumonia. DS: Diagnosis - Discharge Diagnosis (1) Hypoxemia Status: Acute (2) COPD (chronic obstructive pulmonary disease) Status: Acute (3) Pneumonia Status: Acute DS: Summary Hospital Course: Mrs. Breaux is a 67-year-old female. She was admitted secondary to bilateral pneumonia. She responded well to cefepime and azithromycin. On the third day she was going to discharge but she had findings of positive blood culture. Pleomorphic rods were monitored for the next 2 days and grew out Corynebacterium which is just to be a contaminant. This patient is medically stable and cleared for discharge to residential facility today. She will continue Levaquin and azithromycin and probiotics at discharge. - Time Spent with Patient Total time spent providing and/or coordinating discharge services: - Quality: VTE Deep Vein Thrombosis/Pulmonary Embolism Present on Admission: No Exam Vital signs: Vital Signs 03/03/18 11:48 03/03/18 12:00 03/03/18 16:00 Temperature 98.3 F 99.2 F Pulse Rate 87 99 H 87 Respiratory Rate 14 18 18 Blood Pressure 102/50 L 111/59 L Pulse Oximetry 95 97 03/03/18 20:00 03/03/18 21:38 03/04/18 00:00 Temperature 98.9 F 97.5 F L Pulse Rate 78 75 Respiratory Rate 18 18 Blood Pressure 102/53 L 118/57 L Pulse Oximetry 98 97 98 03/04/18 04:00 03/04/18 08:00 03/04/18 09:00 Temperature 99.1 F 98.5 F Pulse Rate 76 82 Respiratory Rate 18 20 Blood Pressure 128/60 123/60 Pulse Oximetry 95 91 L 96 Intake & Output 03/03/18 03/04/18 03/04/18 18:59 06:59 18:59 Intake Total 450 / 450 440 / 440 Balance 450 / 450 440 / 440 Intake: IV 450 / 450 200 / 200 Azithromycin Inj 250 MG In NS 250 / 250 Inj 250 ML @ 250 mls/hr IV.SIG Q24H [facility] Rx#:[id number] Maxipime Inj 1,000 MG In NS Inj 200 / 200 200 / 200 100 ML @ 200 mls/hr IV.SIG Q8H [facility] Rx#:[id number] Oral 240 / 240 Other: # Voids 3 3 Date of Last Bowel Movement 03/03/18 # Bowel Movements 1 Results Procedures completed during hospitalization: none Labs on day of discharge: Labs from last 24 hours 03/04/18 03/04/18 03/04/18 10:01 10:01 07:46 WBC Pending RBC Pending Hgb Pending Hct Pending Plt Count Pending WBC Differential Pending Differential Comment Pending Sodium Pending Potassium Pending Chloride Pending Carbon Dioxide Pending Anion Gap Pending BUN Pending Creatinine Pending POC Glucose 156 H Random Glucose Pending Calcium Pending Total Bilirubin Pending AST Pending ALT Pending Alkaline Phosphatase Pending Total Protein Pending Albumin Pending 03/03/18 03/03/18 03/03/18 19:38 17:03 11:54 WBC RBC Hgb Hct Plt Count WBC Differential Differential Comment Sodium Potassium Chloride Carbon Dioxide Anion Gap BUN Creatinine POC Glucose 159 H 139 H 185 H Random Glucose Calcium Total Bilirubin AST ALT Alkaline Phosphatase Total Protein Albumin - Impressions ITS Impressions Chest X-Ray 02/27/18 09:31 CONCLUSION: Bilateral mid lung and basilar airspace disease Discharge Plan - Discharge Disposition Patient Disposition: 03 Discharge to SNF - Discharge Condition Condition: Stable - Discharge Order Discharge Orders: Discharge Order (Routine); Ordered 03/04/18 Ordered By: Earl Vallejo - Discharge Details Anticipated Discharge Date: 03/02/18 - Physicians Team Primary Care Provider: UNKNOWN, Attending Provider: Earl Vallejo
[2018-03-04 11:35] LABS: Alanine Aminotransferase 16 U/L (10-53); Albumin 2.1 g/dL (3.4-5.0); Anion Gap 9 meq/L (5-15); Aspartate Aminotransferase 12 U/L (15-37); Blood Urea Nitrogen 9 mg/dL (7-18); Calcium 8.4 mg/dL (8.5-10.1); Chloride 112 meq/L (98-107); Glomerular Filtration Rate Greater Than 89 mL/min (>89); Glucose,Random 152 mg/dL (74-106); Potassium 3.5 meq/L (3.5-5.1); Sodium 146 meq/L (136-145)
[2018-03-04 11:37] LABS: Alkaline Phosphatase 72 U/L (45-117); Total Protein 6.1 g/dL (6.4-8.2)
[2018-03-04 12:16] LABS: Eosinophils 4 % (0-4); Lymphocytes 17 % (9-44); Metamyelocytes 1 % (0-1); Monocytes 9 % (0-8); Myelocytes 1 % (0-0)
[2018-03-04 12:17] LABS: Platelet Estimate Normal (Normal); Platelet Morphology Normal (Normal)
== END 2018-03-04 14:54 ==
LOC: NEPE 09:01 → NEDA 14:20 → N05 21:18
PROVIDERS: ADMIT Hospitalist; ATTEND Hospitalist